=== PATIENT | female | born 1960 | race Caucasian/White ===

== ENCOUNTER 2018-10-27 14:52 | Observation (INO) | payer SELFPAY ==
[2018-10-27] VITALS (9 sets, daily range): BP systolic 117–166; BP diastolic 59–94; PULSE 77–91; RESP 12–22; TEMP 36.6–36.8; O2SAT 97–100; BMI 44.2
--- NOTE | 2018-10-27 15:03 | RAD_ITS ---
STUDY: X-RAY - LEFT ANKLE REASON FOR EXAM: Female, 58 years old. Fall TECHNIQUE: 2 view(s) of the ankle. COMPARISON: None. FINDINGS: Fracture involving the distal fibula shaft. Fracture of the medial malleolus and possibly the posterior malleolus. Dislocated talotibial articulation. Normal visualized talus and calcaneus. Calcaneal spurring. The visualized subtalar, talonavicular, calcaneocuboid and tarsal articulations are normal. The soft tissue structures are unremarkable. RAD/Ankle 2 Views IMPRESSION: Fracture /dislocation of the ankle. Electronically Signed: Aly Castillo DO at 15:42 EDT Tel [phone], Service support ,
[2018-10-27] MEDS: HYDROmorphone 1 MG/ML Syringe IV (15:08)
[2018-10-27] MEDS: Propofol 200 MG/20 ML Vial IV BOLUS (16:13)
--- NOTE | 2018-10-27 16:13 | RAD_ITS ---
STUDY: X-RAY - PELVIS AND RIGHT HIP REASON FOR EXAM: Female, 58 years old. pulled off the deck, right hip pain TECHNIQUE: 3 views of the pelvis and hip. COMPARISON: None. FINDINGS: There is a non-specific bowel gas pattern. Normal visualized soft tissue structures. Operative changes of the lumbar spine partially visualized. Normal bilateral iliac wings, sacroiliac joints and visualized sacrum. Normal bilateral superior and inferior pubic rami. Normal pubic symphysis. Normal bilateral ischial tuberosities. Normal visualized femoral head. Normal acetabulum. Normal hip joint. RAD/HIP, UNI W/ Pelvis 2-3 Views IMPRESSION: No fracture or malalignment. Electronically Signed: Omer Barrios MD at 16:56 EDT , Service support ,
--- NOTE | 2018-10-27 16:13 | RAD_ITS ---
STUDY: X-RAY - CERVICAL SPINE REASON FOR EXAM: Female, 58 years old.pulled off the deck, right hip pain TECHNIQUE: 3 view(s) of the cervical spine were obtained. COMPARISON: None FINDINGS: Normal anterior atlantoaxial articulation. Normal odontoid process. There is straightening of the normal cervical lordosis. There is multi-level endplate spondylosis. There is disc space narrowing at C4-C5 and C5-C6. Uncovertebral hypertrophy noted in the lower cervical levels. No subluxation or fracture demonstrated. The soft tissue structures are unremarkable. RAD/Cerv Spine 2 or 3 Views IMPRESSION: No fracture or malalignment demonstrated. Degenerative changes. Electronically Signed: Omer Barrios MD at 16:57 EDT , Service support ,
--- NOTE | 2018-10-27 16:32 | RAD_ITS ---
STUDY: X-RAY - LEFT ANKLE REASON FOR EXAM: Female, 58 years old. Status post reduction of ankle fracture TECHNIQUE: 3 view(s) of the ankle. COMPARISON: Earlier today FINDINGS: Splint material noted. Distal tibial and fibular fractures redemonstrated with nearly radiographically aligned tibiotalar articulation on the current exam. No additional fractures seen. The visualized subtalar, talonavicular, calcaneocuboid and tarsal articulations are normal. There is soft tissue swelling. RAD/Ankle min 3 Views IMPRESSION: Significantly improved alignment of fracture/dislocation. Electronically Signed: Omer Barrios MD at 17:01 EDT , Service support ,
--- NOTE | 2018-10-27 17:24 | RAD_ITS ---
STUDY: X-RAY CHEST REASON FOR EXAM: Female, 58 years old. Preoperative. TECHNIQUE: Portable chest. COMPARISON: None. FINDINGS: The lungs are clear and expanded. There is no demonstrated pleural abnormality. Normal size heart. Normal mediastinum and sergey. Normal visualized pulmonary arteries. Normal visualized aortic arch and descending thoracic aorta. Normal visualized thoracic spine. Normal visualized ribs, clavicles, and shoulders. There is no demonstrated abnormality of the visualized soft tissue structures of the upper abdomen. RAD/Chest 1 View (Portable) IMPRESSION: Normal x-ray examination of the chest. Electronically Signed: Angi Chavez MD at 19:20 EDT Tel , Service support ,
--- NOTE | 2018-10-27 17:25 | EKG12_ITS ---
Test Reason : PREOP Blood Pressure : / mmHG Vent. Rate : 077 BPM Atrial Rate : 077 BPM P-R Int : 146 ms QRS Dur : 094 ms QT Int : 376 ms P-R-T Axes : 035 007 040 degrees QTc Int : 425 ms Normal sinus rhythm Moderate voltage criteria for LVH, may be normal variant Borderline ECG Confirmed by SATURNINO NUNEZ, JAS ([id number]), photo editor ANGELICA HERZOG ([id number]) on 10/30/2018 8:00:58 AM Referred By: TALITA Confirmed By:JAS MATAMOROS MD
[2018-10-27] MEDS: Morphine 4 MG/ML Syringe IV (17:30)
[2018-10-27 17:39] LABS: Absolute Lymphocyte Count 1.71 X10^3/ul (0.83-4.51); Absolute Neutrophil Count 3.4 X10^3/uL (2.0-7.7); Basophil# 0.02 X10^3/uL; Basophil% 0.3 % (0-1); Eosinophils% 3.4 % (0-5); Hematocrit 37.2 % (37-47); Hemoglobin 12.9 g/dl (12.0-15.0); Lymphocyte # 1.71 X10^3/ul (4.0); Lymphocyte % 28.6 % (19-41); Mean Corp Hgb Conc 34.7 g/gl (32-36); Mean Corpuscular Hgb 28.4 pg (27.0-32.0); Mean Corpuscular Volume 81.9 fL (81-99); Mean Platelet Vol. 10.2 fl (6.2-12.0); Monocyte# 0.64 X10^3/uL; Monocyte% 10.7 % (0-10); Neutrophil # 3.39 X10^3/uL (2.7-7.7); Neutrophil % 56.8 % (47-70); POSITIVE COUNT NO; POSITIVE DIFFERENTIAL NO; POSITIVE MORPHOLOGY NO; Platelet Count 258 K/mm3 (150-450); RBC Distribution Width CV 13.8 % (11.6-14.6); RBC Distribution Width SD 41.9 fl (35.1-43.9); Red Blood Count 4.54 M/mm3 (4.2-5.4)
[2018-10-27 17:48] LABS: Anion Gap 8 (5-15); BUN 18 mg/dL (7-18); Calcium,Total 9.3 mg/dL (8.5-10.1); Chloride 107 mmol/L (98-107); Creatinine, Serum 1.29 mg/dL (0.55-1.02); EST Glomerular Filtration Rate 45 mL/min (>60); Est Glom Filt Rate - Afr Amer 54 mL/min (>60); Estimated Creatinine Clearance 39.32 ml/min; Glucose 119 mg/dL (74-106); Potassium 3.6 mmol/L (3.5-5.1); Sodium Level 138 mmol/L (136-145)
--- NOTE | 2018-10-27 17:49 | ED.DCSUM_ITS ---
- ER Visit Summary Date of Service: 10/27/18 Chief Complaint: Fall, left ankle pain History of Present Illness: The patient is a [address] Schneider. She reports that just prior to coming emerge department she was told by her dog who was on a leash and has an obvious deformity to her left ankle. She denies any blow to the head or loss of consciousness. She is not on blood thinners. She reports she has neck pain is 5-10 severity and right hip pain is 5 out of 10 severity. She denies any paresthesias in her foot. Physical Examination: Vitals: Stable. Afebrile. Neck: Mild diffuse tenderness to palpation. No point tenderness. Full ROM without difficulty. Back: No vertebral tenderness. General: A&O x 3. NAD. Cardiovascular exam: Regular rate and rhythm, no murmur, rub or gallop. Respiratory exam: Chest nontender. No crepitus. Clear to auscultation bilaterally. No wheezes or stridor. Abdominal exam: Soft, nontender, nondistended, normal bowel sounds. No pain in RUQ or LUQ specifically. No peritoneal signs. Extremity: Mild tenderness palpation over the right greater trochanter. No pain with internal/external rotation of her hip. Obvious deformity of the left ankle with a fracture dislocation. The skin is tenting, but is not disrupted. She is a 2+ dorsalis pedis pulse and normal sensation light touch distally. Test Results: Clinical Impression(s) from Imaging Studies Ankle X-Ray 10/27/18 15:03 IMPRESSION: Fracture /dislocation of the ankle. Electronically Signed: Aly Castillo DO at 15:42 EDT Tel [phone], Service support , Cervical Spine X-Ray 10/27/18 16:13 IMPRESSION: No fracture or malalignment demonstrated. Degenerative changes. Electronically Signed: Omer Barrios MD at 16:57 EDT , Service support , Hip/Pelvis X-Ray 10/27/18 16:13 IMPRESSION: No fracture or malalignment. Electronically Signed: Omer Barrios MD at 16:56 EDT , Service support , Ankle X-Ray 10/27/18 16:32 IMPRESSION: Significantly improved alignment of fracture/dislocation. Electronically Signed: Omer Barrios MD at 17:01 EDT , Service support , Abnormal Lab Results 10/27/18 10/27/18 15:02 15:02 WBC 6.0 RBC 4.54 Hgb 12.9 Hct 37.2 MCV 81.9 MCH 28.4 MCHC 34.7 RDW 13.8 RDW Differential 41.9 Plt Count 258 MPV 10.2 Immature Gran % (Auto) 0.200 Neut % (Auto) 56.8 Lymph % (Auto) 28.6 [place] % (Auto) 10.7 H Eos % (Auto) 3.4 Baso % (Auto) 0.3 Absolute Neuts (auto) 3.4 Absolute Lymphs (auto) 1.71 Total Counted Not Reportable Sodium 138 Potassium 3.6 Chloride 107 Carbon Dioxide 23.0 Anion Gap 8 BUN 18 Creatinine 1.29 H Estim Creat Clear Calc 39.32 Est GFR (MDRD) Af Amer 54 L Est GFR (MDRD) Non-Af 45 L BUN/Creatinine Ratio 14.0 Glucose 119 H Calcium 9.3 Preop screening was undertaken. Patient has an EKG the sinus at [address] changes. Emergency Department Course and Treatment: Patient had an IV placed. She was given Dilaudid and Zofran IV. She had procedural sedation undertaken with propofol. Her ankle was reduced. She tolerated this well. Treatment Plan: The patient was discussed with Dr. Wharton. He is reviewed the x-rays. She will be admitted for surgical repair of this ankle. Disposition: Admitted in improved condition. Impression: 1. Left ankle trimalleolar fracture/dislocation. 2. Procedural sedation. 3. Reduction left ankle dislocation. 4. Short leg splint, fabricated. 5. Sugar tong splint, fabricated. This note was generated with [employer] software. It may contain incorrect words, spelling, and punctuation that were not noted in review of the chart prior to signing
--- NOTE | 2018-10-27 19:22 | CT_ITS ---
HISTORY: FX AND DISLOCATION OF LT ANKLE POST FALL, PT HAVING SURGERY IN AM TECHNIQUE: Noncontrast bone protocol CT of the left ankle was performed without contrast. 2D and 3D reformats were performed by the technologist. Number of images including paperwork: [id number]. A radiation dose optimization technique was used for this scan. COMPARISON: Left ankle postreduction radiographs 10/27/2018 FINDINGS: BONES: Trimalleolar fracture of the left ankle is noted. Lateral displacement of medial malleolus fragment and distal fibula by about 6 mm. Overriding of the fibular fracture site measuring about 7 mm. Posterior malleolus fragment is mildly displaced. JOINTS: Lateral subluxation of the ankle joint by about 7 mm. SOFT TISSUES: Unremarkable. FOREIGN BODY: No radiopaque foreign body. CT/Extremity Lower without Contra IMPRESSION: Trimalleolar left ankle fracture with lateral ankle subluxation. Individualized dose optimization techniques were used for this CT. at 0229 Reported and signed by: Tahmina Villa MD Electronically Signed: Tahmina Villa MD at 2:29 EDT Tel , Service support ,
--- NOTE | 2018-10-27 19:46 | CON.PCM_ITS ---
Problem List (1) Closed left ankle fracture Status: Acute Qualifiers: Encounter type: initial encounter Qualified Code(s): S82.892A - Other fracture of left lower leg, initial encounter for closed fracture (2) Hypertension Status: Chronic Qualifiers: Hypertension type: essential hypertension Qualified Code(s): I10 - Essential (primary) hypertension (3) Hypothyroidism Status: Chronic Qualifiers: Hypothyroidism type: unspecified Qualified Code(s): E03.9 - Hypothyroidism, unspecified (4) Morbid obesity Status: Chronic (5) Anxiety and depression Status: Chronic (6) HLD (hyperlipidemia) Status: Chronic Qualifiers: Hyperlipidemia type: unspecified Qualified Code(s): E78.5 - Hyperlipidemia, unspecified (7) Chronic back pain Status: Chronic Qualifiers: Back pain location: back pain in unspecified location Back pain laterality: unspecified Qualified Code(s): M54.9 - Dorsalgia, unspecified; G89.29 - Other chronic pain (8) GERD (gastroesophageal reflux disease) Status: Chronic Qualifiers: Esophagitis presence: esophagitis presence not specified Qualified Code(s): K21.9 - Gastro-esophageal reflux disease without esophagitis Reason for Consult Date of Consultation: 10/27/18 Reason for Consultation: Medical consultation History of Present Illness: The patient is a 58 y/o F w/ PMHx: Morbid Obesity, HTN, HLD, Hx Thyroid CA s/p resection w/ resulting Hypothyroidism, Anxiety and Depression, GERD who presents to the [facility] ED on 10/27/18 with history of recent trauma, being pulled off her porch by her canine with fall off steps, immediate L ankle pain with crunching sound with ongoing debilitating left ankle pain with ED evaluation notable for fracture and dislocation of the ankle, specifically trimalleolar fracture and dislocation with the ED procedural sedation undertaken with ankle reduction which was well-tolerated and follow-up consultation with Dr. de la fuente with admission for surgical repair. Dr. de la fuente contacted hospitalist service for medical consultation and notes that he plans operative intervention in a.m. Patient currently in short leg splint as well as sugar tong splint following recent ED reduction. Work-up in the ED additionally included T 98.3, heart rate 89, BP 118/94, respiratory rate 22, 99% on room air, unremarkable CBC, BMP with BUN/creatinine 18/1.29, glucose 119. In the ED patient ministered Dilaudid, morphine, propofol for sedation as well as normal saline. Past Medical History Past Medical History (Chronic Problems): Chronic Problems Hypertension (Chronic) Hypothyroidism (Chronic) Morbid obesity (Chronic) Anxiety and depression (Chronic) HLD (hyperlipidemia) (Chronic) Chronic back pain (Chronic) GERD (gastroesophageal reflux disease) (Chronic) Allergies No Known Allergies Allergy (Verified 10/27/18 14:53) Home Medications: Ambulatory Orders Medication Instructions Recorded Diclofenac Sodium 2 tab PO DAILY 10/27/18 Levothyroxine [Synthroid] 100 mcg PO DAILY 10/27/18 Losartan/Hydrochlorothiazide 1 each PO DAILY 10/27/18 [Losartan-Hctz 100-25 mg Tab] Pantoprazole Sodium [Protonix] 40 mg PO DAILY 10/27/18 Zoloft 50 mg PO DAILY 10/27/18 Zoloft 100 mg PO DAILY 10/27/18 Surgical History: - - Lumbar back surgery, right ankle surgery, right foot pain, right total knee replacement, thyroid resection. 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 Paternal History Items: - - Patient with a paternal family history of chronic kidney disease and hypertension. Review of Systems Constitutional: Reports: Malaise, Weakness, Fatigue. Denies: Chills, Fever, Weight Change HEENT: Denies: Head Aches, Sinus Congestion, Sinus Drainage Cardiovascular: Denies: Chest Pain, Palpitations Respiratory: Denies: Cough, Shortness of breath at rest, Sputum production Gastrointestinal: Denies: Abdominal Pain, Nausea, Vomiting Genitourinary: Denies: Dysuria Musculoskeletal: Reports: Foot Pain, Leg Pain. Denies: Joint Pain, Joint Tenderness Skin: Reports: Skin Changes. Denies: Rash, Wounds Neurological: Denies: Numbness, Tingling, Focal weakness Psychiatric: Reports: Anxiety, Depression. Denies: Homicidal Ideations, Suicidal Ideations Hematologic/ Lymphatic: Denies: Easy Bruising, Easy Bleeding Patient Problems: Active and Suspected Problems Closed left ankle fracture (Acute) Subjective: Seated upright in the [facility] bed, notes ongoing discomfort currently requesting pain medication. Objective: Physical Examination: General: awake, alert, oriented x 3 and cooperative, seated upright in the [facility] bed in no apparent distress. Skin: normal color, turgor, no icterus, cyanosis, left foot and lower leg and splinting, elevated, able to move toes. HEENT: AT/NC, EOMI, PERRLA, mildly dry MM, no carotid bruits or JVD noted. Lungs: CTA bilaterally, moderate effort, mild decrease BL bases, no rales, ronchi or wheezing. Heart: Regular rate and rhythm; no gallop, rub audible. Abdomen: soft, morbidly obese, NTTP, ND, normal BS, no HSM. Extremities: no cyanosis, clubbing, status post mechanical fall with trauma with left ankle fracture, reduced in the ED with splinting in place. Neurological: patient awake, alert, oriented x 3; cognitive function intact; pupils equally reactive to light and accomodation; cranial nerves II-XII grossly normal, moving all 4 extremities however extremely debilitated left lower extremity secondary to recent fall with fracture and splinting in place, strength accordingly moderately to severely globally decreased. Psychiatric: affect appears normal, no acute evidence of depressive or anxiety feelings. - Physical Exam Vital Signs Temp Pulse Resp BP Pulse Ox 98 F 80 20 H 140/68 H 100 10/27/18 18:30 10/27/18 18:30 10/27/18 18:30 10/27/18 18:30 10/27/18 18:30 Oxygen Flow Rate (L/min) [4] 6 Oxygen Flow Rate (L/min) [3] 6 Oxygen Flow Rate (L/min) [2] 6 Oxygen Flow Rate (L/min) [1 ( 2 Initial Baseline)] Oxygen Flow Rate (L/min) 2 Oxygen Delivery Method [4] Nasal Cannula Oxygen Delivery Method [3] Nasal Cannula Oxygen Delivery Method [2] Nasal Cannula Oxygen Delivery Method [1 ( Nasal Cannula Initial Baseline)] Oxygen Delivery Method Room Air Weight: 249 lb 12.54 oz Body Mass Index (BMI) 44.2 Laboratory Tests Past 24 Hrs 10/27/18 10/27/18 15:02 15:02 WBC 6.0 RBC 4.54 Hgb 12.9 Hct 37.2 MCV 81.9 MCH 28.4 MCHC 34.7 RDW 13.8 RDW Differential 41.9 Plt Count 258 MPV 10.2 Immature Gran % (Auto) 0.200 Neut % (Auto) 56.8 Lymph % (Auto) 28.6 [place] % (Auto) 10.7 H Eos % (Auto) 3.4 Baso % (Auto) 0.3 Absolute Neuts (auto) 3.4 Absolute Lymphs (auto) 1.71 Total Counted Not Reportable Sodium 138 Potassium 3.6 Chloride 107 Carbon Dioxide 23.0 Anion Gap 8 BUN 18 Creatinine 1.29 H Estim Creat Clear Calc 39.32 Est GFR (MDRD) Af Amer 54 L Est GFR (MDRD) Non-Af 45 L BUN/Creatinine Ratio 14.0 Glucose 119 H Calcium 9.3 Assessment/Plan All Active Problems Closed left ankle fracture (Acute) The patient is a 58 y/o F w/ PMHx: Morbid Obesity, HTN, HLD, Hx Thyroid CA s/p resection w/ resulting Hypothyroidism, Anxiety and Depression, GERD who presents to the [facility] ED on 10/27/18 with history of recent trauma, being pulled off her porch by her canine with fall off steps, immediate L ankle pain with crunching sound with ongoing debilitating left ankle pain. (1) Trauma, mechanical fall off steps with acute trimalleolar left fracture and dislocation: Admitted to the medical surgical floor per podiatry, per discussion with podiatry planned operative intervention in a.m., fall precautions, reduction in the ED, pain control, nausea control, perioperative antibiotics per podiatry discretion. PT, OT initiation per podiatry discretion. (2) Hypertension: Continue home regimen including losartan, hydrochlorothiazide but would consider hold if repeat a.m. labs with worsened renal function although suspect chronic kidney disease, PRN hydralazine. (3) Hyperlipidemia: Patient not on regimen, defer to outpatient. (4) ? Suspected Chronic Kidney Disease Stage III versus CHAO: Admission BUN/Cr 18/1.29, unclear prior baseline, suspect chronic, repeat BMP in AM. (5) Morbid Obesity: Weight loss and lifestyle changes encouraged, nutrition consulted. (6) Anxiety and depression: Continue home Zoloft regimen. (7) Hx Thyroid CA s/p resection w/ resulting Hypothyroidism: Continue home synthroid regimen. (8) GERD: PPI. (9) DVT prophylaxis: Defer to primary service, podiatry given planned a.m. operative intervention and recent left ankle fracture. Code Visit Office Visits / Consults: [id number] IP Consult L3
--- NOTE | 2018-10-27 19:51 | PCM.HP.STD ---
History of Present Illness Date of Admission: 10/27/18 Chief Complaint: Left ankle fracture The patient is a 58 year old female with history of hypertension, hyperlipidemia, GERD presented to [facility] ER today after injury to left ankle while walking her dog. Patient was found to have displaced trimalleolus ankle fracture, was closed reduced in ER. She has splint intact. She is resting in bed. Patient admitted for pain control with plan for ORIF tomorrow AM. Patient has pain to left ankle c/w injury, no other complaints of pain at this time. Patient has had previous surgery, right foot surgery, back surgery and right knee replacement with no problems with anesthesia. Patient lives at home with her and sister. Patient denies alcohol or tobacco use. Past Medical History Past Medical History (Chronic Problems): Chronic Problems Hypertension (Chronic) Hypothyroidism (Chronic) Morbid obesity (Chronic) Anxiety and depression (Chronic) HLD (hyperlipidemia) (Chronic) Chronic back pain (Chronic) GERD (gastroesophageal reflux disease) (Chronic) Allergies No Known Allergies Allergy (Verified 10/27/18 14:53) Home Medications: Ambulatory Orders Medication Instructions Recorded Levothyroxine [Synthroid] 100 mcg PO DAILY 10/27/18 Losartan/Hydrochlorothiazide 1 each PO DAILY 10/27/18 [Losartan-Hctz 100-25 mg Tab] Pantoprazole Sodium [Protonix] 40 mg PO DAILY 10/27/18 RX: Diclofenac Sodium 2 tab PO DAILY 10/27/18 Zoloft 50 mg PO DAILY 10/27/18 Zoloft 100 mg PO DAILY 10/27/18 Surgical History: - - Right foot surgery, right knee replacement, back surgery Psychiatric History: Anxiety, Depression 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 Paternal History Items: - - Patient with a paternal family history of chronic kidney disease and hypertension. Review of Systems Constitutional: Denies: Chills, Fever Cardiovascular: Denies: Chest Pain, Chest Pressure, Chest Tightness Respiratory: Denies: Shortness of Breath, Shortness of breath at rest, Wheezing Gastrointestinal: Denies: Nausea, Vomiting Musculoskeletal: Reports: Back Pain, - - left ankle pain due to fracture Skin: Denies: Rash, Skin Changes, Wounds VTE Information - Inpt Only VTE Present on Admission: No VTE Mechan Device Prophylaxis: SCD's VTE Pharm Prophylaxis ordered?: No Reason prophylaxis not ordered:: Treatment Not Indicated - will start pharm prophylaxis after surgery Patient Problems: Active and Suspected Problems Closed left ankle fracture (Acute) - Physical Exam General: Alert, Oriented x3, Cooperative, No apparent distress Extremities: Capillary Refill Less than 3 Seconds, No Calf Tenderness, Peripheral Pulses Normal, - - Splint left foot clean, dry and intact, CFT < 2 seconds to all toes with normal temperature, no evidence of ischemia to the left foot. Pain to left ankle c/w her injury, no other pain to the left foot or leg. Sensation intact to level of toes bilateral, motor function intact to toes left foot. Right foot with palpable pedal pulses, no open lesions, no breakdown, no evidence of infection. CFT < seconds to all toes right foot with vascular status intact. Sensation and motor function intact to right foot, no POP or pain on ROM to right foot/ankle. Musculoskeletal: No Muscle Wasting Psych/Mental Status: Normal Affect, Appropriate, Alert and oriented to time, place, person, mood and affect Vital Signs Temp Pulse Resp BP Pulse Ox 98 F 80 20 H 140/68 H 100 10/27/18 18:30 10/27/18 18:30 10/27/18 18:30 10/27/18 18:30 10/27/18 18:30 Oxygen Flow Rate (L/min) [4] 6 Oxygen Flow Rate (L/min) [3] 6 Oxygen Flow Rate (L/min) [2] 6 Oxygen Flow Rate (L/min) [1 ( 2 Initial Baseline)] Oxygen Flow Rate (L/min) 2 Oxygen Delivery Method [4] Nasal Cannula Oxygen Delivery Method [3] Nasal Cannula Oxygen Delivery Method [2] Nasal Cannula Oxygen Delivery Method [1 ( Nasal Cannula Initial Baseline)] Oxygen Delivery Method Room Air Weight: 113.3 kg Body Mass Index (BMI) 44.2 Laboratory Tests Past 24 Hrs 10/27/18 10/27/18 15:02 15:02 WBC 6.0 RBC 4.54 Hgb 12.9 Hct 37.2 MCV 81.9 MCH 28.4 MCHC 34.7 RDW 13.8 RDW Differential 41.9 Plt Count 258 MPV 10.2 Immature Gran % (Auto) 0.200 Neut % (Auto) 56.8 Lymph % (Auto) 28.6 [place] % (Auto) 10.7 H Eos % (Auto) 3.4 Baso % (Auto) 0.3 Absolute Neuts (auto) 3.4 Absolute Lymphs (auto) 1.71 Total Counted Not Reportable Sodium 138 Potassium 3.6 Chloride 107 Carbon Dioxide 23.0 Anion Gap 8 BUN 18 Creatinine 1.29 H Estim Creat Clear Calc 39.32 Est GFR (MDRD) Af Amer 54 L Est GFR (MDRD) Non-Af 45 L BUN/Creatinine Ratio 14.0 Glucose 119 H Calcium 9.3 Assessment/Plan All Active Problems Closed left ankle fracture (Acute) Left ankle trimalleolus ankle fracture Reviewed left ankle xrays, patient admitted for pain control and plan for surgical intervention tomorrow AM for ORIF. This was discussed with patient in great detail, reviewed procedure, rationale of procedure, as well as possible benefits vs risks, goals, expectations and typical/estimated healing time. Patient expressed understanding and agreement and would like to proceed forward with surgical intervention tomorrow AM. Pain control: IV Morphine 2mg IV q 2 hours prn pain, oxyir 5-10mg PO q 4 hours prn pain. No weightbearing left foot. Keep splint dressing clean, dry and intact, and keep left foot elevated. CT scan of left ankle has been ordered. DVT Prophylaxis: SCD right lower extremity, surgery in AM, will plan to start post op prophylaxis after surgery Code status discussed with patient, and patient would like to be FULL Code. Co-morbidities: Hypertension, Hyperlipidemia, GERD, possible CKD, and other medical problems: Medicine team has been consulted, appreciate assistance.
[2018-10-27] MEDS: 0.9% Normal Saline 1,000 ML 100 ML IV (20:12)
[2018-10-27] MEDS: oxyCODONE 5 MG Tablet PO ×2 (20:19→21:26)
[2018-10-27] MEDS: 0.9% NaCl Peripheral Flush Adult/Peds IV (21:27)
[2018-10-28] VITALS (11 sets, daily range): BP systolic 101–169; BP diastolic 62–91; PULSE 82–101; RESP 16–20; TEMP 36.4–37; O2SAT 93–98; BMI 44.2
[2018-10-28] MEDS: oxyCODONE 5 MG Tablet PO (01:29)
[2018-10-28] MEDS: 0.9% Normal Saline 1,000 ML 100 ML IV ×3 (05:15→17:12)
[2018-10-28] MEDS: 0.9% NaCl Peripheral Flush Adult/Peds IV (05:29)
[2018-10-28] MEDS: Morphine 2 MG/ML Syringe IV (05:29)
[2018-10-28 06:51] LABS: Anion Gap 9 (5-15); BUN 15 mg/dL (7-18); Calcium,Total 8.7 mg/dL (8.5-10.1); Chloride 108 mmol/L (98-107); EST Glomerular Filtration Rate 60 mL/min (>60); Est Glom Filt Rate - Afr Amer 73 mL/min (>60); Estimated Creatinine Clearance 50.73 ml/min; Glucose 107 mg/dL (74-106); Sodium Level 143 mmol/L (136-145)
[2018-10-28 07:07] LABS: Absolute Lymphocyte Count 1.32 X10^3/ul (0.83-4.51); Absolute Neutrophil Count 3.6 X10^3/uL (2.0-7.7); Basophil# 0.01 X10^3/uL; Basophil% 0.2 % (0-1); Eosinophil# 0.13 X10^3/uL; Eosinophils% 2.4 % (0-5); Hematocrit 33.7 % (37-47); Hemoglobin 11.3 g/dl (12.0-15.0); Lymphocyte # 1.32 X10^3/ul (4.0); Mean Corp Hgb Conc 33.5 g/gl (32-36); Mean Corpuscular Hgb 28.3 pg (27.0-32.0); Mean Corpuscular Volume 84.3 fL (81-99); Mean Platelet Vol. 9.2 fl (6.2-12.0); Monocyte# 0.47 X10^3/uL; Monocyte% 8.5 % (0-10); Neutrophil # 3.56 X10^3/uL (2.7-7.7); Neutrophil % 64.7 % (47-70); Platelet Count 203 K/mm3 (150-450); RBC Distribution Width SD 43.2 fl (35.1-43.9); White Blood Count 5.5 K/mm3 (4.4-11.0)
[2018-10-28 07:15] LABS: POSITIVE COUNT NO; POSITIVE DIFFERENTIAL NO; POSITIVE MORPHOLOGY NO
--- NOTE | 2018-10-28 07:29 | PCM.PN.HOSP ---
Patient Problems: Active and Suspected Problems Closed left ankle fracture (Acute) Subjective: Patient is a 58-year-old lady admitted with traumatic acute left trimalleolar fracture and dislocation following mechanical fall Objective: GENERAL: cooperative HEENT: Atraumatic; EYES; Anicteric, Normal Conjunctiva NECK; supple, normal thyroid, RESPIRATORY: Diminished to auscultation bilaterally, CARDIOVASCULAR: Regular S1 S2, GI: soft, non-tender, normoactive bowel sounds, : No Renal angle tenderness; EXTREMITIES: Right ankle immobilized NEURO: Awake; no lateralizing signs. SKIN: No Rash PSYCH; Normal affect Vitals/I&O's: Vital Signs Temp Pulse Resp BP Pulse Ox 98.4 F 82 18 126/69 H 96 10/28/18 05:17 10/28/18 05:17 10/28/18 05:17 10/28/18 05:17 10/28/18 05:17 Oxygen Flow Rate (L/min) [4] 6 Oxygen Flow Rate (L/min) [3] 6 Oxygen Flow Rate (L/min) [2] 6 Oxygen Flow Rate (L/min) [1 ( 2 Initial Baseline)] Oxygen Flow Rate (L/min) 2 Oxygen Delivery Method [4] Nasal Cannula Oxygen Delivery Method [3] Nasal Cannula Oxygen Delivery Method [2] Nasal Cannula Oxygen Delivery Method [1 ( Nasal Cannula Initial Baseline)] Oxygen Delivery Method Room Air Weight: 113.3 kg Body Mass Index (BMI) 44.2 Intake and Output for Last 24 Hours 10/26/18 10/27/18 10/28/18 23:59 23:59 23:59 Intake Total 894 / 894 505 / 505 Output Total 350 / 350 400 / 400 Balance 544 / 544 105 / 105 Laboratory Results 10/27/18 15:02: WBC 6.0, RBC 4.54, Hgb 12.9, Hct 37.2, MCV 81.9, MCH 28.4, MCHC 34.7, RDW 13.8, RDW Differential 41.9, Plt Count 258, MPV 10.2, Immature Gran % (Auto) 0.200, Neut % (Auto) 56.8, Lymph % (Auto) 28.6, [place] % (Auto) 10.7 H, Eos % (Auto) 3.4, Baso % (Auto) 0.3, Absolute Neuts (auto) 3.4, Absolute Lymphs (auto) 1.71, Total Counted Not Reportable 10/27/18 15:02: Sodium 138, Potassium 3.6, Chloride 107, Carbon Dioxide 23.0, Anion Gap 8, BUN 18, Creatinine 1.29 H, Estim Creat Clear Calc 39.32, Est GFR (MDRD) Af Amer 54 L, Est GFR (MDRD) Non-Af 45 L, BUN/Creatinine Ratio 14.0, Glucose 119 H, Calcium 9.3 10/27/18 20:40: Vitamin D 25-Hydroxy Pending 10/28/18 05:43: WBC 5.5, RBC 4.00 L, Hgb 11.3 L, Hct 33.7 L, MCV 84.3, MCH 28.3, MCHC 33.5, RDW 14.0, RDW Differential 43.2, Plt Count 203, MPV 9.2, Immature Gran % (Auto) 0.200, Neut % (Auto) 64.7, Lymph % (Auto) 24.0, [place] % (Auto) 8.5, Eos % (Auto) 2.4, Baso % (Auto) 0.2, Absolute Neuts (auto) 3.6, Absolute Lymphs (auto) 1.32, Total Counted Not Reportable 10/28/18 05:43: Sodium 143, Potassium 3.0 L, Chloride 108 H, Carbon Dioxide 26.0, Anion Gap 9, BUN 15, Creatinine 1.00, Estim Creat Clear Calc 50.73, Est GFR (MDRD) Af Amer 73, Est GFR (MDRD) Non-Af 60, BUN/Creatinine Ratio 15.0, Glucose 107 H, Calcium 8.7 Current Medications Acetaminophen (Tylenol) 650 mg PO Q6H PRN PRN PRN Reason: Non-cardiac pain (mod-severe) Al Hydroxide/Mg Hydroxide (Mylanta Ii) 15 - 30 ml PO Q4H PRN PRN PRN Reason: INDIGESTION Albuterol Sulfate (Ventolin Aerosols) 2.5 mg INHALATION Q2H PRN PRN PRN Reason: dyspnea, wheezing Docusate Sodium (Colace) 100 mg PO BID PRN PRN PRN Reason: Constipation Hydralazine HCl (Apresoline Iv) 10 mg IV Q4H PRN PRN PRN Reason: SBP > 160 Cefazolin Sodium 2 gm/ Sodium (Chloride) 110 mls @ 150 mls/hr IV X1 ONE Stop: 10/28/18 08:13 Sodium Chloride () 1,000 mls @ 100 mls/hr IV .Q10H MARCIO Last Admin: 10/28/18 05:15 Dose: 100 mls/hr Morphine Sulfate () 2 mg IV Q2H PRN PRN PRN Reason: SEVERE PAIN (6-10/10) Last Admin: 10/28/18 05:29 Dose: 2 mg Ondansetron HCl (Zofran) 4 mg IV Q8H PRN PRN PRN Reason: NAUSEA/VOMITING Oxycodone HCl (Oxyir) 5 - 10 mg PO Q4H PRN PRN PRN Reason: SEVERE PAIN (6-1010) Last Admin: 10/28/18 01:29 Dose: 10 mg Sodium Chloride () 5 - 15 ml IV UD PRN PRN Reason: SALINE FLUSH Last Admin: 10/28/18 05:29 Dose: 10 ml Medical Necessity - Tobacco Use Smoking Status: Never smoker Tobacco Use: Non-smoker Assessment/Plan All Active Problems Closed left ankle fracture (Acute) Patient is a 58-year-old lady admitted with traumatic acute left trimalleolar fracture and dislocation following mechanical fall 1. Acute Left Fracture /dislocation of the ankle (trimalleolar fracture and dislocation) following mechanical fall patient admitted to the podiatry service with plans for patient undergo ORIF on 10/28/2018 2. Essential hypertension; did continue with home meds with adjustment as needed 3. History of thyroid CA status post resection 4. Hypothyroidism following patient thyroid resection patient is on levothyroxine did continue 5. GERD patient is on PPI 6. Depression with anxiety patient is on SSRI 7. Morbid obesity with BMI of 44.2 weight loss advised 8. Renal insufficiency resolved with IV fluids 9. DVT prophylaxis will recommend low molecular weight heparin if no contraindication 10. Hypokalemia repleted per protocol with plans for repeat BMP on 10/29/2018 Active Medications Acetaminophen (Tylenol) 650 mg PO Q6H PRN PRN PRN Reason: Non-cardiac pain (mod-severe) Al Hydroxide/Mg Hydroxide (Mylanta Ii) 15 - 30 ml PO Q4H PRN PRN PRN Reason: INDIGESTION Albuterol Sulfate (Ventolin Aerosols) 2.5 mg INHALATION Q2H PRN PRN PRN Reason: dyspnea, wheezing Docusate Sodium (Colace) 100 mg PO BID PRN PRN PRN Reason: Constipation Hydralazine HCl (Apresoline Iv) 10 mg IV Q4H PRN PRN PRN Reason: SBP > 160 Cefazolin Sodium 2 gm/ Sodium (Chloride) 110 mls @ 150 mls/hr IV X1 ONE Stop: 10/28/18 08:13 Sodium Chloride () 1,000 mls @ 100 mls/hr IV .Q10H MARCIO Last Admin: 10/28/18 05:15 Dose: 100 mls/hr Morphine Sulfate () 2 mg IV Q2H PRN PRN PRN Reason: SEVERE PAIN (6-10) Last Admin: 10/28/18 05:29 Dose: 2 mg Ondansetron HCl (Zofran) 4 mg IV Q8H PRN PRN PRN Reason: NAUSEA/VOMITING Oxycodone HCl (Oxyir) 5 - 10 mg PO Q4H PRN PRN PRN Reason: SEVERE PAIN (6-1010) Last Admin: 10/28/18 01:29 Dose: 10 mg Sodium Chloride () 5 - 15 ml IV UD PRN PRN Reason: SALINE FLUSH Last Admin: 10/28/18 05:29 Dose: 10 ml Clinical Impression(s) from Imaging Studies Ankle X-Ray 10/27/18 15:03 IMPRESSION: Fracture /dislocation of the ankle. Electronically Signed: Aly Castillo DO at 15:42 EDT Tel [phone], Service support , Cervical Spine X-Ray 10/27/18 16:13 IMPRESSION: No fracture or malalignment demonstrated. Degenerative changes. Electronically Signed: Omer Barrios MD at 16:57 EDT , Service support , Hip/Pelvis X-Ray 10/27/18 16:13 IMPRESSION: No fracture or malalignment. Electronically Signed: Omer Barrios MD at 16:56 EDT , Service support , Ankle X-Ray 10/27/18 16:32 IMPRESSION: Significantly improved alignment of fracture/dislocation. Electronically Signed: Omer Barrios MD at 17:01 EDT , Service support , Chest X-Ray 10/27/18 17:24 IMPRESSION: Normal x-ray examination of the chest. Electronically Signed: Angi Chavez MD at 19:20 EDT Tel , Service support , Code Visit Inpatient E&M: 70263 Subs Hosp L3
--- NOTE | 2018-10-28 07:32 | PN_ITS ---
Patient Problems: Active and Suspected Problems Closed left ankle fracture (Acute) Subjective: Patient is a 58-year-old lady admitted with traumatic acute left trimalleolar fracture and dislocation following mechanical fall Objective: GENERAL: cooperative HEENT: Atraumatic; EYES; Anicteric, Normal Conjunctiva NECK; supple, normal thyroid, RESPIRATORY: Diminished to auscultation bilaterally, CARDIOVASCULAR: Regular S1 S2, GI: soft, non-tender, normoactive bowel sounds, : No Renal angle tenderness; EXTREMITIES: Right ankle immobilized NEURO: Awake; no lateralizing signs. SKIN: No Rash PSYCH; Normal affect Vitals/I&O's: Vital Signs Temp Pulse Resp BP Pulse Ox 98.4 F 82 18 126/69 H 96 10/28/18 05:17 10/28/18 05:17 10/28/18 05:17 10/28/18 05:17 10/28/18 05:17 Oxygen Flow Rate (L/min) [4] 6 Oxygen Flow Rate (L/min) [3] 6 Oxygen Flow Rate (L/min) [2] 6 Oxygen Flow Rate (L/min) [1 ( 2 Initial Baseline)] Oxygen Flow Rate (L/min) 2 Oxygen Delivery Method [4] Nasal Cannula Oxygen Delivery Method [3] Nasal Cannula Oxygen Delivery Method [2] Nasal Cannula Oxygen Delivery Method [1 ( Nasal Cannula Initial Baseline)] Oxygen Delivery Method Room Air Weight: 113.3 kg Body Mass Index (BMI) 44.2 Intake and Output for Last 24 Hours 10/26/18 10/27/18 10/28/18 23:59 23:59 23:59 Intake Total 894 / 894 505 / 505 Output Total 350 / 350 400 / 400 Balance 544 / 544 105 / 105 Laboratory Results 10/27/18 15:02: WBC 6.0, RBC 4.54, Hgb 12.9, Hct 37.2, MCV 81.9, MCH 28.4, MCHC 34.7, RDW 13.8, RDW Differential 41.9, Plt Count 258, MPV 10.2, Immature Gran % (Auto) 0.200, Neut % (Auto) 56.8, Lymph % (Auto) 28.6, [place] % (Auto) 10.7 H, Eos % (Auto) 3.4, Baso % (Auto) 0.3, Absolute Neuts (auto) 3.4, Absolute Lymphs (auto) 1.71, Total Counted Not Reportable 10/27/18 15:02: Sodium 138, Potassium 3.6, Chloride 107, Carbon Dioxide 23.0, Anion Gap 8, BUN 18, Creatinine 1.29 H, Estim Creat Clear Calc 39.32, Est GFR (MDRD) Af Amer 54 L, Est GFR (MDRD) Non-Af 45 L, BUN/Creatinine Ratio 14.0, Glucose 119 H, Calcium 9.3 10/27/18 20:40: Vitamin D 25-Hydroxy Pending 10/28/18 05:43: WBC 5.5, RBC 4.00 L, Hgb 11.3 L, Hct 33.7 L, MCV 84.3, MCH 28.3, MCHC 33.5, RDW 14.0, RDW Differential 43.2, Plt Count 203, MPV 9.2, Immature Gran % (Auto) 0.200, Neut % (Auto) 64.7, Lymph % (Auto) 24.0, [place] % (Auto) 8.5, Eos % (Auto) 2.4, Baso % (Auto) 0.2, Absolute Neuts (auto) 3.6, Absolute Lymphs (auto) 1.32, Total Counted Not Reportable 10/28/18 05:43: Sodium 143, Potassium 3.0 L, Chloride 108 H, Carbon Dioxide 26.0, Anion Gap 9, BUN 15, Creatinine 1.00, Estim Creat Clear Calc 50.73, Est GFR (MDRD) Af Amer 73, Est GFR (MDRD) Non-Af 60, BUN/Creatinine Ratio 15.0, Glucose 107 H, Calcium 8.7 Current Medications Acetaminophen (Tylenol) 650 mg PO Q6H PRN PRN PRN Reason: Non-cardiac pain (mod-severe) Al Hydroxide/Mg Hydroxide (Mylanta Ii) 15 - 30 ml PO Q4H PRN PRN PRN Reason: INDIGESTION Albuterol Sulfate (Ventolin Aerosols) 2.5 mg INHALATION Q2H PRN PRN PRN Reason: dyspnea, wheezing Docusate Sodium (Colace) 100 mg PO BID PRN PRN PRN Reason: Constipation Hydralazine HCl (Apresoline Iv) 10 mg IV Q4H PRN PRN PRN Reason: SBP > 160 Cefazolin Sodium 2 gm/ Sodium (Chloride) 110 mls @ 150 mls/hr IV X1 ONE Stop: 10/28/18 08:13 Sodium Chloride () 1,000 mls @ 100 mls/hr IV .Q10H MARCIO Last Admin: 10/28/18 05:15 Dose: 100 mls/hr Morphine Sulfate () 2 mg IV Q2H PRN PRN PRN Reason: SEVERE PAIN (6-10/10) Last Admin: 10/28/18 05:29 Dose: 2 mg Ondansetron HCl (Zofran) 4 mg IV Q8H PRN PRN PRN Reason: NAUSEA/VOMITING Oxycodone HCl (Oxyir) 5 - 10 mg PO Q4H PRN PRN PRN Reason: SEVERE PAIN (6-1010) Last Admin: 10/28/18 01:29 Dose: 10 mg Sodium Chloride () 5 - 15 ml IV UD PRN PRN Reason: SALINE FLUSH Last Admin: 10/28/18 05:29 Dose: 10 ml Medical Necessity - Tobacco Use Smoking Status: Never smoker Tobacco Use: Non-smoker Assessment/Plan All Active Problems Closed left ankle fracture (Acute) Patient is a 58-year-old lady admitted with traumatic acute left trimalleolar fracture and dislocation following mechanical fall 1. Acute Left Fracture /dislocation of the ankle (trimalleolar fracture and dislocation) following mechanical fall patient admitted to the podiatry service with plans for patient undergo ORIF on 10/28/2018 2. Essential hypertension; did continue with home meds with adjustment as needed 3. History of thyroid CA status post resection 4. Hypothyroidism following patient thyroid resection patient is on levothyroxine did continue 5. GERD patient is on PPI 6. Depression with anxiety patient is on SSRI 7. Morbid obesity with BMI of 44.2 weight loss advised 8. Renal insufficiency resolved with IV fluids 9. DVT prophylaxis will recommend low molecular weight heparin if no contraindication 10. Hypokalemia repleted per protocol with plans for repeat BMP on 10/29/2018 Active Medications Acetaminophen (Tylenol) 650 mg PO Q6H PRN PRN PRN Reason: Non-cardiac pain (mod-severe) Al Hydroxide/Mg Hydroxide (Mylanta Ii) 15 - 30 ml PO Q4H PRN PRN PRN Reason: INDIGESTION Albuterol Sulfate (Ventolin Aerosols) 2.5 mg INHALATION Q2H PRN PRN PRN Reason: dyspnea, wheezing Docusate Sodium (Colace) 100 mg PO BID PRN PRN PRN Reason: Constipation Hydralazine HCl (Apresoline Iv) 10 mg IV Q4H PRN PRN PRN Reason: SBP > 160 Cefazolin Sodium 2 gm/ Sodium (Chloride) 110 mls @ 150 mls/hr IV X1 ONE Stop: 10/28/18 08:13 Sodium Chloride () 1,000 mls @ 100 mls/hr IV .Q10H MARCIO Last Admin: 10/28/18 05:15 Dose: 100 mls/hr Morphine Sulfate () 2 mg IV Q2H PRN PRN PRN Reason: SEVERE PAIN (6-10) Last Admin: 10/28/18 05:29 Dose: 2 mg Ondansetron HCl (Zofran) 4 mg IV Q8H PRN PRN PRN Reason: NAUSEA/VOMITING Oxycodone HCl (Oxyir) 5 - 10 mg PO Q4H PRN PRN PRN Reason: SEVERE PAIN (6-1010) Last Admin: 10/28/18 01:29 Dose: 10 mg Sodium Chloride () 5 - 15 ml IV UD PRN PRN Reason: SALINE FLUSH Last Admin: 10/28/18 05:29 Dose: 10 ml Clinical Impression(s) from Imaging Studies Ankle X-Ray 10/27/18 15:03 IMPRESSION: Fracture /dislocation of the ankle. Electronically Signed: Aly Castillo DO at 15:42 EDT Tel [phone], Service support , Cervical Spine X-Ray 10/27/18 16:13 IMPRESSION: No fracture or malalignment demonstrated. Degenerative changes. Electronically Signed: Omer Barrios MD at 16:57 EDT , Service support , Hip/Pelvis X-Ray 10/27/18 16:13 IMPRESSION: No fracture or malalignment. Electronically Signed: Omer Barrios MD at 16:56 EDT , Service support , Ankle X-Ray 10/27/18 16:32 IMPRESSION: Significantly improved alignment of fracture/dislocation. Electronically Signed: Omer Barrios MD at 17:01 EDT , Service support , Chest X-Ray 10/27/18 17:24 IMPRESSION: Normal x-ray examination of the chest. Electronically Signed: Angi Chavez MD at 19:20 EDT Tel , Service support , Code Visit Inpatient E&M: 46429 Subs Hosp L3
--- NOTE | 2018-10-28 08:00 | RAD_ITS ---
STUDY: X-RAY - LEFT ANKLE REASON FOR EXAM: Female, 58 years old. ORIF TECHNIQUE: 12 intraoperative view(s) of the ankle. COMPARISON: October 27, 2018 FINDINGS: Intraoperative images demonstrate ORIF for fibular fracture and medial malleolus fracture. Fracture fragments are well approximated and aligned. Bony details are limited. RAD/Ankle min 3 Views IMPRESSION: ORIF of the ankle as noted. Electronically Signed: Aly Castillo DO at 15:47 EDT Tel [phone], Service support ,
[2018-10-28] MEDS: Cefazolin 2 GM in 0.9% Normal Saline 100 ML IV (08:20)
[2018-10-28] MEDS: Potassium Chloride 10mEq/100mL 10 MEQ/100 ML IV.SOLN. 100 MEQ IV BOLUS ×4 (08:40→12:32)
--- NOTE | 2018-10-28 12:04 | RAD_ITS ---
STUDY: X-RAY - LEFT ANKLE REASON FOR EXAM: Female, 58 years old. Postop TECHNIQUE: 3 view(s) of the ankle. COMPARISON: October 27, 2018. FINDINGS: Status post ORIF for a fibular fracture and a medial malleolus fracture. Fracture fragment is well approximated and aligned. A splint has been applied. RAD/Ankle min 3 Views IMPRESSION: Status post ORIF of the ankle. Electronically Signed: Aly Castillo DO at 15:56 EDT Tel [phone], Service support ,
--- NOTE | 2018-10-28 12:18 | OP.PCM_ITS ---
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 Alessandro Siddiqi Type of Anesthesia:: General Specimen's removed: None Estimated Blood Loss (mL): 20mL Description of Procedure: Indications: This is a 58 year old female sustained a dislocated left tri malleolar ankle fracture on 10/27/18. Closed reduction was preformed by the Emergency Room physician. Pre operative xrays as well as CT scan were obtained and reviewed. There was trimalleolar ankle fracture with continued displacement present. Patient elected to proceed forward with open reduction internal fixation of the trimalleolar ankle fracture. The procedure was reviewed with her in detail. The rationale of the procedure was reviewed with her. The goals and the expectations were discussed and reviewed with her. The possible benefits vs risks and all potential complications were discussed and reviewed with the patient. Patient advised the risks include, but are not limited to pain, swelling, nerve damage, complex regional pain syndrome, infection, blood clots, loss of function, symptomatic hardware, hardware failure, nonhealing, delayed healing, dehiscence, nonunion, delayed union, malunion, bleeding, scarring, post op athritis, stiffness, deformity, loss of function, loss of limb, loss of life. The patient expressed understanding and was able to repeat back. The patient expressed understanding and agreement, and elected to proceed forward with the procedure. All of her questions were answered. The consent forms were reviewed with her and she freely signed them. No guarantees or warranties were given or implied. Operative Procedure: The patient was brought back to the operating room and was placed on the operating room table in the supine position. The patient was carefully secured to the operating room table with a safety belt around her waist. The patient received 2 grams of IV cephalozin for antibiotic prophylaxis. The anesthesia team gave the patient general anesthesia. A well padded pneumatic tourniquet was applied around her left thigh. The left lower extremity was scrubbed, prepped, and draped in the usual aseptic fashion. The left foot/ankle was elevated for 3 minutes and the thigh pneumatic tourniquet was inflated to 350mmHg. The ankle was noted to be very unstable due to the trimalleolar fracture. There was no open lesions, blisters or skin break down noted. Using a 15 blade, a skin incision was made overlying the lateral malleolus. Careful dissection was completed down to the lateral malleolus fracture. The periosteum was left intact. The oblique spiral fibular fracture was noted, it was displaced. The fibula was brought out to length and was rotated back to normal position, it was stabilized with a bone clamp. The fracture was fixated using rigid open reduction internal fixation technique with 1 Arthrex a titanium distal fibular plate, which was applied across the fracture site using a total of nine screws (combination of 2.7mm locking screws distally and 3.5mm locking screws and 3.5mm cortical screws proximally through the plate). The clamp was removed. There fracture was reduced, very stable, and in good position. This was confirmed visually as well as using intra operative fluoroscopy. Attention was directed to the medial malleolus, as this was fractures with some continued displacement. A skin incision was made overlying the medial malleolus using a 15 scalpel blade. Careful blunt dissection was completed down to the medial malleolus where the fracture was identified. There was soft tissue inter position between the fracture fragments. This was composed of periosteum. The periosteum was moved out from in between the fracture fragments and the medial malleolus was reduced back manually into normal position. The medial malleolus fracture site was fixated with two 4.0mm Arthrex cannulated screws. There fracture was reduced, but still with some instability, as there was some slight fragmentation of the medial malleolus when placing the screws for fixation. Therefore the fragment was further fixated using one 0.062 inch kwire across the fracture site. The kwire was trimmed and bent. At this time the medial malleolus was very stable, and in good position. This was confirmed visually as well as using intra operative fluoroscopy. Clinically there was excellent bone to bone contact at the fracture sites. There was noted to be very mild instability of the distal syndesmosis, when stressing it, therefore an Arthrex syndesmotic Tightrope was placed across the distal fibula and tibia to stabilize the tib fib syndesmosis. After this was completed, the distal ankle syndesmosis was stressed with a bone hook as well as with dorsiflexion external rotation stress test, and it was now noted be be stable with no gapping present or instability present. At this time there was noted to be excellent stability to the ankle joint, range of motion was smooth and gliding normally. There was no popping, clicking, or crepitus present. Intraoperative fluoroscopy was used to check the site and it was noted fibular length and tib fib overlap was normal, ankle mortise with medial and lateral gutters in normal position/alignment with good positioning of the plate, screws, and tight rope. There was good bone to bone alignment of the fracture sites. There was excellent stability to the ankle / fracture site. The ankle was stressed under fluoroscopy and negative anterior drawer, normal talar tilt, no gapping with external stress, no medial gutter gapping with external stress test, and no gapping or instability with Cotton test as noted above. The surgical site was flushed out with copious amounts of normal saline solution. The subcutaneous tissue was reapproximated using 3-0 Vicryl, and the skin was 3- 0 Nylon. A dressing was applied which consisted of Betadine soaked adaptic, 4x4 gauze, kerlix, webril, audi bandages, and well padded below knee posterior splint. Prior to closure the tight pneumatic tourniquet was deflated and it was noted all hemostasis was achieved. There was immediate return of vascular flow to the foot/ankle, CFT < 2 seconds, and normal temperature present. Total tourniquet time was 120 minutes. Also of note, all vital structures, including all vital neurovascular and tendon structures were properly identified, protected and retracted as necessary. The patient tolerated the above procedure well and anesthesia well with no complications. The patient was transports to the recovery room in good condition and vital signs stable. The patient did receive a left lower extremity popliteal block per the anesthesiology service in the recovery room for post operative pain control. Post op orders were placed, no weightbearing left foot, keep left foot elevated. She will be transferred back to her room on the floor for post op pain control and observation. Patient will be followed as inpatient. Post operative xrays were obtained of the ankle which confirmed proper ORIF in good position as noted above with no complications. Grafts/Implants Used: Arthrex fibular plate, Arthrex screws, Arthrex tight rope - Complications None
--- NOTE | 2018-10-28 13:14 | NURSING ---
Patient family requesting TCU on discharge
[2018-10-28] MEDS: hydroCHLOROthiazide 25 MG Tablet PO (15:38)
[2018-10-28] MEDS: Sertraline 50 MG Tablet PO (15:38)
[2018-10-28] MEDS: Losartan Potassium 100 MG Tablet PO (15:38)
[2018-10-28] MEDS: Pantoprazole Sodium 40 MG Tablet PO (15:38)
[2018-10-28] MEDS: Cefazolin 1 GM/50 ML BAG IV ×2 (15:42→23:46)
[2018-10-28] MEDS: Sertraline 100 MG Tablet PO (21:03)
[2018-10-29 02:30] VITALS: BP 120/59; PULSE 88; RESP 16; TEMP 36.9; O2SAT 98
[2018-10-29] MEDS: 0.9% Normal Saline 1,000 ML 100 ML IV ×2 (02:36→13:01)
[2018-10-29] MEDS: oxyCODONE 5 MG Tablet PO ×5 (04:07→22:24)
[2018-10-29] MEDS: Acetaminophen 325 MG Tablet 650 MG PO ×2 (04:07→22:25)
[2018-10-29] MEDS: Levothyroxine 100 MCG Tablet PO (05:28)
[2018-10-29 06:06] LABS: Absolute Lymphocyte Count 0.65 X10^3/ul (0.83-4.51); Absolute Neutrophil Count 5.5 X10^3/uL (2.0-7.7); Hematocrit 30.6 % (37-47); Hemoglobin 10.2 g/dl (12.0-15.0); Lymphocyte # 0.65 X10^3/ul (4.0); Lymphocyte % 9.2 % (19-41); Mean Corp Hgb Conc 33.3 g/gl (32-36); Mean Corpuscular Hgb 28.2 pg (27.0-32.0); Mean Corpuscular Volume 84.5 fL (81-99); Mean Platelet Vol. 9.4 fl (6.2-12.0); Monocyte# 0.89 X10^3/uL; Monocyte% 12.6 % (0-10); Neutrophil # 5.52 X10^3/uL (2.7-7.7); Neutrophil % 77.9 % (47-70); POSITIVE COUNT NO; POSITIVE DIFFERENTIAL NO; POSITIVE MORPHOLOGY NO; Platelet Count 198 K/mm3 (150-450); RBC Distribution Width CV 13.7 % (11.6-14.6); RBC Distribution Width SD 41.1 fl (35.1-43.9); Red Blood Count 3.62 M/mm3 (4.2-5.4); White Blood Count 7.1 K/mm3 (4.4-11.0)
[2018-10-29 06:27] LABS: Anion Gap 11 (5-15); BUN 12 mg/dL (7-18); BUN/Creat Ratio 12.3 RATIO (10-20); Calcium,Total 8.6 mg/dL (8.5-10.1); Chloride 110 mmol/L (98-107); Creatinine, Serum 0.98 mg/dL (0.55-1.02); EST Glomerular Filtration Rate 62 mL/min (>60); Est Glom Filt Rate - Afr Amer 75 mL/min (>60); Estimated Creatinine Clearance 51.76 ml/min; Glucose 116 mg/dL (74-106); Potassium 3.1 mmol/L (3.5-5.1); Sodium Level 145 mmol/L (136-145)
[2018-10-29] MEDS: Enoxaparin 40 MG/0.4 ML Syringe SC (06:29)
[2018-10-29] MEDS: Sertraline 50 MG Tablet PO (08:08)
[2018-10-29] MEDS: hydroCHLOROthiazide 25 MG Tablet PO (08:08)
[2018-10-29] MEDS: Losartan Potassium 100 MG Tablet PO (08:08)
[2018-10-29] MEDS: Pantoprazole Sodium 40 MG Tablet PO (08:08)
[2018-10-29] MEDS: Cefazolin 1 GM/50 ML BAG IV (08:09)
[2018-10-29 08:30] VITALS: BP 146/79; PULSE 73; RESP 18; TEMP 36.7; O2SAT 98
--- NOTE | 2018-10-29 08:51 | PCM.PROGNOTE ---
Patient Problems: Active and Suspected Problems Closed left ankle fracture (Acute) Subjective: Patient was seen this morning for follow up on left ankle fracture s/p ORIF on 10/28/18. Patient resting in bed, relates block wore off this morning, relates prior to that no pain. She relates pain is about 4-5/10 at the ankle, took oxyir, has not taken morphine since yesterday. She has no complaints of fever, chills, nausea, vomiting, chest pain, shortness of breath, calf pain, or heel pain. Patient afebrile, WBC normal, potassium still low at 3.1 - Physical Exam General: Alert, Oriented x3, Cooperative, No apparent distress Extremities: No cyanosis, Capillary Refill Less than 3 Seconds, No Calf Tenderness, - - Splint/dressing to the left foot/ankle clean, dry and intact, no suspicion of infect, CFT < 2 seconds to all toes, patient able to wiggle toes. Vital Signs Temp Pulse Resp BP Pulse Ox 98.0 F 73 18 146/79 H 98 10/29/18 08:30 10/29/18 08:30 10/29/18 08:30 10/29/18 08:30 10/29/18 08:30 Oxygen Flow Rate (L/min) [4] 6 Oxygen Flow Rate (L/min) [3] 6 Oxygen Flow Rate (L/min) [2] 6 Oxygen Flow Rate (L/min) [1 ( 2 Initial Baseline)] Oxygen Flow Rate (L/min) 2 Oxygen Delivery Method [4] Nasal Cannula Oxygen Delivery Method [3] Nasal Cannula Oxygen Delivery Method [2] Nasal Cannula Oxygen Delivery Method [1 ( Nasal Cannula Initial Baseline)] Oxygen Delivery Method Room Air Weight: 113.3 kg Body Mass Index (BMI) 44.2 Intake and Output for Last 24 Hours 10/27/18 10/28/18 10/29/18 23:59 23:59 23:59 Intake Total 894 / 894 4299 / 4299 563 / 563 Output Total 350 / 350 1200 / 1200 700 / 700 Balance 544 / 544 3099 / 3099 -137 / -137 Laboratory Tests Past 24 Hrs 10/28/18 10/29/18 10/29/18 05:43 05:30 05:30 WBC 7.1 RBC 3.62 L Hgb 10.2 L Hct 30.6 L MCV 84.5 MCH 28.2 MCHC 33.3 RDW 13.7 RDW Differential 41.1 Plt Count 198 MPV 9.4 Immature Gran % (Auto) 0.300 Neut % (Auto) 77.9 H Lymph % (Auto) 9.2 L [place] % (Auto) 12.6 H Eos % (Auto) 0.0 Baso % (Auto) 0.0 Absolute Neuts (auto) 5.5 Absolute Lymphs (auto) 0.65 L Total Counted Not Reportable Sodium 145 Potassium 3.1 L Chloride 110 H Carbon Dioxide 24.0 Anion Gap 11 BUN 12 Creatinine 0.98 Estim Creat Clear Calc 51.76 Est GFR (MDRD) Af Amer 75 Est GFR (MDRD) Non-Af 62 BUN/Creatinine Ratio 12.3 Glucose 116 H Calcium 8.6 Magnesium Cancelled 2.0 Medical Necessity - Tobacco Use Smoking Status: Never smoker Tobacco Use: Non-smoker Assessment/Plan All Active Problems Closed left ankle fracture (Acute) Left ankle trimalleolus ankle fracture s/p ORIF on 10/28/18 Reviewed operation details with patient. No weightbearing left foot. Keep splint dressing clean, dry and intact, and keep left foot elevated. Pain control: IV Morphine 2mg IV q 2 hours prn pain, oxyir 5-10mg PO q 4 hours prn pain...goal is to transition to just oral pain meds. DVT Prophylaxis: Lovenox 40mg subcutaneous once daily. Physical therapy consulted: No weightbearing left foot/ankle. Co-morbidities: Hypertension, Hyperlipidemia, GERD, hypokalemia, depression, and other medical problems: per medicine team, appreciate assistance. Discharge planning: Pending nursing facility placement for rehab. Case management consulted. Patient agrees to go to nursing facility due to overall health status, rehab, and needing to be nonweightbearing left foot/ankle with very little help at home.
--- NOTE | 2018-10-29 09:24 | DCINST_ITS ---
<Jayson Wharton - Last Filed: 10/29/18 09:24> Discharge Activity: May Not Drive Weight Bearing Status: No weight bearing - Strict nonweightbearing left foot/ankle Keep extremity elevated above heart level: Left Leg - Keep left foot/ankle elevated with pillows, with heel offloaded, for at least 50 minutes of every hour Call your doctor if your incision/area has: Continuous Slow Oozing, Sudden Increased Bleeding, Increased Pain/ Swelling, Foul Smelling Discharge Call your doctor if you observe: Fever of 101 or Higher, Coldness, Increased Pain, Shortness of breath, Chest pain, Calf discomfort, Uncontrolled pain Cleanse incision/area with: Do not get Incision Wet, Keep Dressing Clean & Dry Allergies/Adverse Reactions: Allergies No Known Allergies Allergy (Verified 10/27/18 14:53) Medications to take at Discharge Levothyroxine [Synthroid] 100 mcg PO DAILY 10/27/18 Losartan/Hydrochlorothiazide [Losartan-Hctz 100-25 mg Tab] 1 each PO DAILY 10/27/18 Pantoprazole Sodium [Protonix] 40 mg PO DAILY 10/27/18 Zoloft 50 mg PO DAILY 10/27/18 Zoloft 100 mg PO DAILY 10/27/18 Enoxaparin Sodium [Lovenox] 40 mg SQ DAILY #14 syringe 10/30/18 Oxycodone HCl/Acetaminophen [Percocet 5-325 mg Tablet] 1 ea PO Q6H PRN PRN 7 Days #40 tab 10/30/18 The following prescriptions were given: Oxycodone HCl/Acetaminophen [Percocet 5-325 mg Tablet] 1 ea PO Q6H PRN PRN 7 Days #40 tab PRN Reason: pain Enoxaparin Sodium [Lovenox] 40 mg SQ DAILY #14 syringe Primary Care Physician: Matthew Schneider MD [Primary Care Provider] - Test Results: Test results from this visit will be discussed in further detail at your follow- up appointment, if applicable. Please Follow Up With: Jayson Wharton DPM - Office address: [address] [place] [address], [facility] [place] When: next week, or sooner if needed. Call office for appointment at [phone] <Alessandro Barroso - Last Filed: 10/30/18 10:11> Discharge Diet: No Restrictions Discharge Activity: May Not Drive Test Results: Test results from this visit will be discussed in further detail at your follow- up appointment, if applicable.
[2018-10-29 09:48] LABS: Vitamin D,25 Hydroxy 37.9 ng/mL (29.95-100.01)
--- NOTE | 2018-10-29 11:55 | PCM.PN.HOSP ---
Patient Problems: Active and Suspected Problems Closed left ankle fracture (Acute) Subjective: Doing well, pain is controlled. No acute events overnight, she is pending discharge to [facility] Vitals/I&O's: Vital Signs Temp Pulse Resp BP Pulse Ox 98.0 F 73 18 146/79 H 98 10/29/18 08:30 10/29/18 08:30 10/29/18 08:30 10/29/18 08:30 10/29/18 08:30 Oxygen Flow Rate (L/min) [4] 6 Oxygen Flow Rate (L/min) [3] 6 Oxygen Flow Rate (L/min) [2] 6 Oxygen Flow Rate (L/min) [1 ( 2 Initial Baseline)] Oxygen Flow Rate (L/min) 2 Oxygen Delivery Method [4] Nasal Cannula Oxygen Delivery Method [3] Nasal Cannula Oxygen Delivery Method [2] Nasal Cannula Oxygen Delivery Method [1 ( Nasal Cannula Initial Baseline)] Oxygen Delivery Method Room Air Weight: 249 lb 12.54 oz Body Mass Index (BMI) 44.2 Intake and Output for Last 24 Hours 10/27/18 10/28/18 10/29/18 23:59 23:59 23:59 Intake Total 894 / 894 4299 / 4299 563 / 563 Output Total 350 / 350 1200 / 1200 700 / 700 Balance 544 / 544 3099 / 3099 -137 / -137 General: Alert, Oriented x3, Cooperative, No apparent distress HEENT: Atraumatic, PERRLA, EOMI, Normocephalic Oral: Moist Mucosa Neck: Supple, No JVD Lungs: Clear to auscultation, Normal air movement, No rhonchi, No wheeze, No rales, Diminished Cardiovascular: Regular rate, Regular Rhythm, Normal S1, No murmurs Abdomen: Soft, Non Tender, Non-Distended, No Hepato-splenomegaly Extremities: No edema, Capillary Refill Less than 3 Seconds Skin: No rashes, No breakdown, Incision - Left lower extremity is in a cast, she can move her toes and has sensation in her toes Neurological: Neuro grossly intact, Sensory exam intact to light touch and pain Psych/Mental Status: Normal Affect, Appropriate Laboratory Results 10/27/18 20:40: Vitamin D 25-Hydroxy 37.9 10/28/18 05:43: Magnesium Cancelled 10/29/18 05:30: WBC 7.1, RBC 3.62 L, Hgb 10.2 L, Hct 30.6 L, MCV 84.5, MCH 28.2, MCHC 33.3, RDW 13.7, RDW Differential 41.1, Plt Count 198, MPV 9.4, Immature Gran % (Auto) 0.300, Neut % (Auto) 77.9 H, Lymph % (Auto) 9.2 L, [place] % (Auto) 12.6 H, Eos % (Auto) 0.0, Baso % (Auto) 0.0, Absolute Neuts (auto) 5.5, Absolute Lymphs (auto) 0.65 L, Total Counted Not Reportable 10/29/18 05:30: Sodium 145, Potassium 3.1 L, Chloride 110 H, Carbon Dioxide 24.0, Anion Gap 11, BUN 12, Creatinine 0.98, Estim Creat Clear Calc 51.76, Est GFR (MDRD) Af Amer 75, Est GFR (MDRD) Non-Af 62, BUN/Creatinine Ratio 12.3, Glucose 116 H, Calcium 8.6, Magnesium 2.0 Current Medications Acetaminophen (Tylenol) 650 mg PO Q6H PRN PRN PRN Reason: Non-cardiac pain (mod-severe) Last Admin: 10/29/18 04:07 Dose: 650 mg Al Hydroxide/Mg Hydroxide (Mylanta Ii) 15 - 30 ml PO Q4H PRN PRN PRN Reason: INDIGESTION Albuterol Sulfate (Ventolin Aerosols) 2.5 mg INHALATION Q2H PRN PRN PRN Reason: dyspnea, wheezing Docusate Sodium (Colace) 100 mg PO BID PRN PRN PRN Reason: Constipation Enoxaparin Sodium (Lovenox) 40 mg SC 0700 [facility] Last Admin: 10/29/18 06:29 Dose: 40 mg Hydralazine HCl (Apresoline Iv) 10 mg IV Q4H PRN PRN PRN Reason: SBP > 160 Hydrochlorothiazide (Hctz) 25 mg PO DAILY [facility] Last Admin: 10/29/18 08:08 Dose: 25 mg Sodium Chloride () 1,000 mls @ 100 mls/hr IV .Q10H [facility] Last Admin: 10/29/18 02:36 Dose: 100 mls/hr Levothyroxine Sodium (Synthroid) 100 mcg PO DAILY@0600 [facility] Last Admin: 10/29/18 05:28 Dose: 100 mcg Losartan Potassium (Cozaar) 100 mg PO DAILY [facility] Last Admin: 10/29/18 08:08 Dose: 100 mg Morphine Sulfate () 2 mg IV Q2H PRN PRN PRN Reason: SEVERE PAIN (6-1010) Last Admin: 10/28/18 05:29 Dose: 2 mg Ondansetron HCl (Zofran) 4 mg IV Q8H PRN PRN PRN Reason: NAUSEA/VOMITING Oxycodone HCl (Oxyir) 5 - 10 mg PO Q4H PRN PRN PRN Reason: SEVERE PAIN (6-10) Last Admin: 10/29/18 09:45 Dose: 10 mg Pantoprazole Sodium (Protonix) 40 mg PO DAILY [facility] Last Admin: 10/29/18 08:08 Dose: 40 mg Sertraline HCl (Zoloft) 100 mg PO QHS [facility] Last Admin: 10/28/18 21:03 Dose: 100 mg Sertraline HCl (Zoloft) 50 mg PO DAILY [facility] Last Admin: 10/29/18 08:08 Dose: 50 mg Sodium Chloride () 5 - 15 ml IV UD PRN PRN Reason: SALINE FLUSH Last Admin: 10/28/18 05:29 Dose: 10 ml Medical Necessity - Tobacco Use Smoking Status: Never smoker Tobacco Use: Non-smoker Assessment/Plan All Active Problems Closed left ankle fracture (Acute) 1. Acute left trimalleolar fracture dislocation -Sustained this injury from a mechanical fall -Underwent ORIF successfully, leg is currently dressed -Pain management per primary -Plan for DC to SNF when able -She is stable for discharge from medical stand 2. HTN/morbid obesity -Blood pressure has been stable -Continue with home medications -BMI is 44.2, lifestyle modifications advised 3. Hypothyroidism secondary to thyroid cancer status post resection -Stable -Continue with Synthroid 4. GERD -Stable -Continue with PPI 5. Depression/anxiety -Stable -Continue with SSRI 6. Hypokalemia -Potassium today is 3.1 with a normal magnesium -Give 60 mEq of p.o. potassium DVT: Lovenox Code Visit OBSV E&M: 46643 Subsequent observation care L2
--- NOTE | 2018-10-29 11:59 | PN_ITS ---
Patient Problems: Active and Suspected Problems Closed left ankle fracture (Acute) Subjective: Doing well, pain is controlled. No acute events overnight, she is pending discharge to [facility] Vitals/I&O's: Vital Signs Temp Pulse Resp BP Pulse Ox 98.0 F 73 18 146/79 H 98 10/29/18 08:30 10/29/18 08:30 10/29/18 08:30 10/29/18 08:30 10/29/18 08:30 Oxygen Flow Rate (L/min) [4] 6 Oxygen Flow Rate (L/min) [3] 6 Oxygen Flow Rate (L/min) [2] 6 Oxygen Flow Rate (L/min) [1 ( 2 Initial Baseline)] Oxygen Flow Rate (L/min) 2 Oxygen Delivery Method [4] Nasal Cannula Oxygen Delivery Method [3] Nasal Cannula Oxygen Delivery Method [2] Nasal Cannula Oxygen Delivery Method [1 ( Nasal Cannula Initial Baseline)] Oxygen Delivery Method Room Air Weight: 249 lb 12.54 oz Body Mass Index (BMI) 44.2 Intake and Output for Last 24 Hours 10/27/18 10/28/18 10/29/18 23:59 23:59 23:59 Intake Total 894 / 894 4299 / 4299 563 / 563 Output Total 350 / 350 1200 / 1200 700 / 700 Balance 544 / 544 3099 / 3099 -137 / -137 General: Alert, Oriented x3, Cooperative, No apparent distress HEENT: Atraumatic, PERRLA, EOMI, Normocephalic Oral: Moist Mucosa Neck: Supple, No JVD Lungs: Clear to auscultation, Normal air movement, No rhonchi, No wheeze, No rales, Diminished Cardiovascular: Regular rate, Regular Rhythm, Normal S1, No murmurs Abdomen: Soft, Non Tender, Non-Distended, No Hepato-splenomegaly Extremities: No edema, Capillary Refill Less than 3 Seconds Skin: No rashes, No breakdown, Incision - Left lower extremity is in a cast, she can move her toes and has sensation in her toes Neurological: Neuro grossly intact, Sensory exam intact to light touch and pain Psych/Mental Status: Normal Affect, Appropriate Laboratory Results 10/27/18 20:40: Vitamin D 25-Hydroxy 37.9 10/28/18 05:43: Magnesium Cancelled 10/29/18 05:30: WBC 7.1, RBC 3.62 L, Hgb 10.2 L, Hct 30.6 L, MCV 84.5, MCH 28.2, MCHC 33.3, RDW 13.7, RDW Differential 41.1, Plt Count 198, MPV 9.4, Immature Gran % (Auto) 0.300, Neut % (Auto) 77.9 H, Lymph % (Auto) 9.2 L, [place] % (Auto) 12.6 H, Eos % (Auto) 0.0, Baso % (Auto) 0.0, Absolute Neuts (auto) 5.5, Absolute Lymphs (auto) 0.65 L, Total Counted Not Reportable 10/29/18 05:30: Sodium 145, Potassium 3.1 L, Chloride 110 H, Carbon Dioxide 24.0, Anion Gap 11, BUN 12, Creatinine 0.98, Estim Creat Clear Calc 51.76, Est GFR (MDRD) Af Amer 75, Est GFR (MDRD) Non-Af 62, BUN/Creatinine Ratio 12.3, Glucose 116 H, Calcium 8.6, Magnesium 2.0 Current Medications Acetaminophen (Tylenol) 650 mg PO Q6H PRN PRN PRN Reason: Non-cardiac pain (mod-severe) Last Admin: 10/29/18 04:07 Dose: 650 mg Al Hydroxide/Mg Hydroxide (Mylanta Ii) 15 - 30 ml PO Q4H PRN PRN PRN Reason: INDIGESTION Albuterol Sulfate (Ventolin Aerosols) 2.5 mg INHALATION Q2H PRN PRN PRN Reason: dyspnea, wheezing Docusate Sodium (Colace) 100 mg PO BID PRN PRN PRN Reason: Constipation Enoxaparin Sodium (Lovenox) 40 mg SC 0700 [facility] Last Admin: 10/29/18 06:29 Dose: 40 mg Hydralazine HCl (Apresoline Iv) 10 mg IV Q4H PRN PRN PRN Reason: SBP > 160 Hydrochlorothiazide (Hctz) 25 mg PO DAILY [facility] Last Admin: 10/29/18 08:08 Dose: 25 mg Sodium Chloride () 1,000 mls @ 100 mls/hr IV .Q10H [facility] Last Admin: 10/29/18 02:36 Dose: 100 mls/hr Levothyroxine Sodium (Synthroid) 100 mcg PO DAILY@0600 [facility] Last Admin: 10/29/18 05:28 Dose: 100 mcg Losartan Potassium (Cozaar) 100 mg PO DAILY [facility] Last Admin: 10/29/18 08:08 Dose: 100 mg Morphine Sulfate () 2 mg IV Q2H PRN PRN PRN Reason: SEVERE PAIN (6-1010) Last Admin: 10/28/18 05:29 Dose: 2 mg Ondansetron HCl (Zofran) 4 mg IV Q8H PRN PRN PRN Reason: NAUSEA/VOMITING Oxycodone HCl (Oxyir) 5 - 10 mg PO Q4H PRN PRN PRN Reason: SEVERE PAIN (6-10) Last Admin: 10/29/18 09:45 Dose: 10 mg Pantoprazole Sodium (Protonix) 40 mg PO DAILY [facility] Last Admin: 10/29/18 08:08 Dose: 40 mg Sertraline HCl (Zoloft) 100 mg PO QHS [facility] Last Admin: 10/28/18 21:03 Dose: 100 mg Sertraline HCl (Zoloft) 50 mg PO DAILY [facility] Last Admin: 10/29/18 08:08 Dose: 50 mg Sodium Chloride () 5 - 15 ml IV UD PRN PRN Reason: SALINE FLUSH Last Admin: 10/28/18 05:29 Dose: 10 ml Medical Necessity - Tobacco Use Smoking Status: Never smoker Tobacco Use: Non-smoker Assessment/Plan All Active Problems Closed left ankle fracture (Acute) 1. Acute left trimalleolar fracture dislocation -Sustained this injury from a mechanical fall -Underwent ORIF successfully, leg is currently dressed -Pain management per primary -Plan for DC to SNF when able -She is stable for discharge from medical stand 2. HTN/morbid obesity -Blood pressure has been stable -Continue with home medications -BMI is 44.2, lifestyle modifications advised 3. Hypothyroidism secondary to thyroid cancer status post resection -Stable -Continue with Synthroid 4. GERD -Stable -Continue with PPI 5. Depression/anxiety -Stable -Continue with SSRI 6. Hypokalemia -Potassium today is 3.1 with a normal magnesium -Give 60 mEq of p.o. potassium DVT: Lovenox Code Visit OBSV E&M: 33102 Subsequent observation care L2
--- NOTE | 2018-10-29 13:33 | CASEMGMT ---
Social Work Note RICA met with pt as pt is listed as self-pay. SW introduced self and role at [facility]. Pt is alert and orientated x4. Pt states that she lives with her and sister in a one story home with 3 acres and with 4-5 steps to enter. Pt states that she was previously independent with ADLs. DME include crutches, cane and high rise toilet seat. Pt states that her sister in law has a walker and knee scooter that she will be able to use. Pharmacy is [facility] in [place] and PCP is Dr. Schneider. Pt confirms that she doesn't have insurance. 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 Pt states that she had been asking for a clinical psychologist private practice position at her head of partner development job but that there are no clinical psychologist private practice positions available. Pt states that PFS met with her and she was informed that she wouldn't qualify for Medicaid or for HCAP as her income is too high. Pt states that she was also informed that her home insurance won't cover her medical bills either. RICA offered support to pt. Pt states that she will have to return home at discharge as she doesn't have insurance and she can't afford a SNF. RICA educated pt on going to SNF under pending Medicaid but that if PFS is stating she wouldn't qualify for Medicaid then pt would get a bill for private pay at SNF. Again pt states that she can't afford paying privately for SNF. RICA did provide pt with financial resources including Medicaid application, [employer], [facility], Ina Sandoval, RX assistance program and [facility] assistance. Pt states that she may need a wheelchair at discharge. SW informed pt that RN KEVEN can speak with her regarding wheelchair. Pt states understanding, denied additional needs or concerns at this time. Plan: Pt to discharge home Yadira Lorenzana LIFESTYLE DIRECTOR, CLOTHING PATTERN PREPARER
--- NOTE | 2018-10-29 13:40 | CASEMGMT ---
RN KEVEN Face to Face with patient for initial transition planning/care coordination assessment. RN CM introduced self and role at [facility]. Patient lying in bed, alert and oriented. Patient willing to participate in assessment and is able to answer all questions appropriately. Care providers, pharmacy, and demographics verified. Patient wishes to discharge home, denies need for home health at this time. Patient states she has no further needs or concerns at this time. CM to follow for discharge planning needs that may arise. PCP: [facility] Specialists: None Insurance: Self pay Prescription Benefit: none Living Will/HPOA: none LNOK: Living Arrangements: Patient lives with and sister in 1 story home with 5 steps with railing x2. Transportation: self/ DME/HHC: Patient has raised toilet seat, cane, crutches, walker, and knee walker at home. Disposition Plan: Patient to discharge home with family support and follow-up plans in place. Yadira YEE, RN, CM
[2018-10-29 14:00] VITALS: BP 132/68; PULSE 85; RESP 18; TEMP 36.7; O2SAT 98
[2018-10-29 19:48] VITALS: BP 127/75; PULSE 85; RESP 16; TEMP 37.3; O2SAT 94
[2018-10-29] MEDS: Sertraline 100 MG Tablet PO (22:25)
[2018-10-30 02:00] VITALS: BP 99/50; PULSE 81; RESP 16; TEMP 36.9; O2SAT 93
[2018-10-30] MEDS: Enoxaparin 40 MG/0.4 ML Syringe SC (06:15)
[2018-10-30] MEDS: Levothyroxine 100 MCG Tablet PO (06:15)
[2018-10-30 06:28] LABS: Anion Gap 6 (5-15); BUN 13 mg/dL (7-18); BUN/Creat Ratio 14.6 RATIO (10-20); Calcium,Total 8.8 mg/dL (8.5-10.1); Chloride 114 mmol/L (98-107); Creatinine, Serum 0.89 mg/dL (0.55-1.02); EST Glomerular Filtration Rate 69 mL/min (>60); Est Glom Filt Rate - Afr Amer 83 mL/min (>60); Glucose 96 mg/dL (74-106); Potassium 3.9 mmol/L (3.5-5.1); Sodium Level 143 mmol/L (136-145)
--- NOTE | 2018-10-30 06:53 | PN_ITS ---
Patient Problems: Active and Suspected Problems Closed left ankle fracture (Acute) Subjective: Feels great today, she was able to sleep after being given the oxycodone with Tylenol. Pain is much improved. Vitals/I&O's: Vital Signs Temp Pulse Resp BP Pulse Ox 98.5 F 81 16 99/50 L 93 10/30/18 02:00 10/30/18 02:00 10/30/18 02:00 10/30/18 02:00 10/30/18 02:00 Oxygen Flow Rate (L/min) [4] 6 Oxygen Flow Rate (L/min) [3] 6 Oxygen Flow Rate (L/min) [2] 6 Oxygen Flow Rate (L/min) [1 ( 2 Initial Baseline)] Oxygen Flow Rate (L/min) 2 Oxygen Delivery Method [4] Nasal Cannula Oxygen Delivery Method [3] Nasal Cannula Oxygen Delivery Method [2] Nasal Cannula Oxygen Delivery Method [1 ( Nasal Cannula Initial Baseline)] Oxygen Delivery Method Room Air Weight: 249 lb 12.54 oz Body Mass Index (BMI) 44.2 Intake and Output for Last 24 Hours 10/28/18 10/29/18 10/30/18 23:59 23:59 23:59 Intake Total 4299 / 4299 3364 / 3364 1543 / 1543 Output Total 1200 / 1200 1475 / 1475 450 / 450 Balance 3099 / 3099 1889 / 1889 1093 / 1093 General: Alert, Oriented x3, Cooperative, No apparent distress HEENT: Atraumatic, PERRLA, EOMI, Normocephalic Oral: Moist Mucosa Neck: Supple, No JVD Lungs: Clear to auscultation, Normal air movement, No rhonchi, No wheeze, No rales, Diminished Cardiovascular: Regular rate, Regular Rhythm, Normal S1, No murmurs Abdomen: Soft, Non Tender, Non-Distended, No Hepato-splenomegaly Extremities: No edema, Capillary Refill Less than 3 Seconds Skin: No rashes, No breakdown, Incision - Left lower extremity is in a cast, she can move her toes and has sensation in her toes Neurological: Neuro grossly intact, Sensory exam intact to light touch and pain Psych/Mental Status: Normal Affect, Appropriate Laboratory Results 10/27/18 20:40: Vitamin D 25-Hydroxy 37.9 10/30/18 05:54: Sodium 143, Potassium 3.9, Chloride 114 H, Carbon Dioxide 23.0, Anion Gap 6, BUN 13, Creatinine 0.89, Estim Creat Clear Calc 57.00, Est GFR (MDRD) Af Amer 83, Est GFR (MDRD) Non-Af 69, BUN/Creatinine Ratio 14.6, Glucose 96, Calcium 8.8 Current Medications Acetaminophen (Tylenol) 650 mg PO Q6H PRN PRN PRN Reason: Non-cardiac pain (mod-severe) Last Admin: 10/29/18 22:25 Dose: 650 mg Al Hydroxide/Mg Hydroxide (Mylanta Ii) 15 - 30 ml PO Q4H PRN PRN PRN Reason: INDIGESTION Albuterol Sulfate (Ventolin Aerosols) 2.5 mg INHALATION Q2H PRN PRN PRN Reason: dyspnea, wheezing Docusate Sodium (Colace) 100 mg PO BID PRN PRN PRN Reason: Constipation Enoxaparin Sodium (Lovenox) 40 mg SC 0700 [facility] Last Admin: 10/30/18 06:15 Dose: 40 mg Hydralazine HCl (Apresoline Iv) 10 mg IV Q4H PRN PRN PRN Reason: SBP > 160 Hydrochlorothiazide (Hctz) 25 mg PO DAILY [facility] Last Admin: 10/29/18 08:08 Dose: 25 mg Levothyroxine Sodium (Synthroid) 100 mcg PO DAILY@0600 [facility] Last Admin: 10/30/18 06:15 Dose: 100 mcg Losartan Potassium (Cozaar) 100 mg PO DAILY [facility] Last Admin: 10/29/18 08:08 Dose: 100 mg Morphine Sulfate () 2 mg IV Q2H PRN PRN PRN Reason: SEVERE PAIN (-02/28) Last Admin: 10/28/18 05:29 Dose: 2 mg Ondansetron HCl (Zofran) 4 mg IV Q8H PRN PRN PRN Reason: NAUSEA/VOMITING Oxycodone HCl (Oxyir) 5 - 10 mg PO Q4H PRN PRN PRN Reason: SEVERE PAIN (6-02/28) Last Admin: 10/29/18 22:24 Dose: 10 mg Pantoprazole Sodium (Protonix) 40 mg PO DAILY [facility] Last Admin: 10/29/18 08:08 Dose: 40 mg Sertraline HCl (Zoloft) 100 mg PO QHS [facility] Last Admin: 10/29/18 22:25 Dose: 100 mg Sertraline HCl (Zoloft) 50 mg PO DAILY [facility] Last Admin: 10/29/18 08:08 Dose: 50 mg Sodium Chloride () 5 - 15 ml IV UD PRN PRN Reason: SALINE FLUSH Last Admin: 10/28/18 05:29 Dose: 10 ml Medical Necessity - Tobacco Use Smoking Status: Never smoker Tobacco Use: Non-smoker Assessment/Plan All Active Problems Closed left ankle fracture (Acute) 1. Acute left trimalleolar fracture dislocation -Sustained this injury from a mechanical fall -Underwent ORIF successfully, leg is currently dressed -Pain management per primary -Plan for DC to SNF when able -She is stable for discharge from medical stand 2. HTN/morbid obesity -Blood pressure has been stable -Continue with home medications -BMI is 44.2, lifestyle modifications advised 3. Hypothyroidism secondary to thyroid cancer status post resection -Stable -Continue with Synthroid 4. GERD -Stable -Continue with PPI 5. Depression/anxiety -Stable -Continue with SSRI 6. Hypokalemia -Potassium today is 3.9 DVT: Lovenox Code Visit OBSV E&M: 38892 Subsequent observation care L2
[2018-10-30] MEDS: Acetaminophen 325 MG Tablet 650 MG PO (06:58)
[2018-10-30 07:32] VITALS: BP 134/77; PULSE 78; RESP 20; TEMP 37; O2SAT 99
[2018-10-30] MEDS: Losartan Potassium 100 MG Tablet PO (09:40)
[2018-10-30] MEDS: hydroCHLOROthiazide 25 MG Tablet PO (09:40)
[2018-10-30] MEDS: Pantoprazole Sodium 40 MG Tablet PO (09:40)
[2018-10-30] MEDS: Sertraline 50 MG Tablet PO (09:41)
--- NOTE | 2018-10-30 10:01 | PN_ITS ---
Patient Problems: Active and Suspected Problems Closed left ankle fracture (Acute) Subjective: Patient was seen this morning for follow up on left ankle fracture s/p ORIF on 10/28/[address] Wharton. Patient resting bedside. Patient says pain is very well controlled today on oral pain medication. She has no complaints of fever, chil ls, nausea, vomiting, chest pain, shortness of breath, calf pain, or heel pain. Patient afebrile, WBC normal. - Physical Exam General: Alert, Oriented x3, Cooperative, No apparent distress Extremities: No cyanosis, Capillary Refill Less than 3 Seconds, No Calf Tenderness, - - Splint/dressing to the left foot/ankle clean, dry and intact, no suspicion of infect, CFT < 2 seconds to all toes, patient able to wiggle toes Vital Signs Temp Pulse Resp BP Pulse Ox 98.6 F 78 20 H 134/77 H 99 10/30/18 07:32 10/30/18 07:32 10/30/18 07:32 10/30/18 07:32 10/30/18 07:32 Oxygen Flow Rate (L/min) [4] 6 Oxygen Flow Rate (L/min) [3] 6 Oxygen Flow Rate (L/min) [2] 6 Oxygen Flow Rate (L/min) [1 ( 2 Initial Baseline)] Oxygen Flow Rate (L/min) 2 Oxygen Delivery Method [4] Nasal Cannula Oxygen Delivery Method [3] Nasal Cannula Oxygen Delivery Method [2] Nasal Cannula Oxygen Delivery Method [1 ( Nasal Cannula Initial Baseline)] Oxygen Delivery Method Room Air Weight: 113.3 kg Body Mass Index (BMI) 44.2 Intake and Output for Last 24 Hours 10/28/18 10/29/18 10/30/18 23:59 23:59 23:59 Intake Total 4299 / 4299 3364 / 3364 1543 / 1543 Output Total 1200 / 1200 1475 / 1475 450 / 450 Balance 3099 / 3099 1889 / 1889 1093 / 1093 Laboratory Tests Past 24 Hrs 10/30/18 05:54 Sodium 143 Potassium 3.9 Chloride 114 H Carbon Dioxide 23.0 Anion Gap 6 BUN 13 Creatinine 0.89 Estim Creat Clear Calc 57.00 Est GFR (MDRD) Af Amer 83 Est GFR (MDRD) Non-Af 69 BUN/Creatinine Ratio 14.6 Glucose 96 Calcium 8.8 Medical Necessity - Tobacco Use Smoking Status: Never smoker Tobacco Use: Non-smoker Assessment/Plan All Active Problems Closed left ankle fracture (Acute) Left ankle trimalleolus ankle fracture s/p ORIF on 10/28/[address] Wharton. No weightbearing left foot. Keep splint dressing clean, dry and intact, and keep left foot elevated. Pain control: Patient will be discharged home with percocet prescription to be taken as directed. DVT Prophylaxis: Lovenox 40mg subcutaneous once daily to be continued at home. Patient will be using wheel chair she is receiving from family member. Co-morbidities: Hypertension, Hyperlipidemia, GERD, depression, and other medical problems: per medicine team, appreciate assistance. Discharge planning: Patient will be discharged home today. She will follow up in office with Dr. Wharton early next week. This was discussed with patient.
--- NOTE | 2018-10-30 10:22 | DS.PCM_ITS ---
Discharge Date and Diagnosis - Problem List Patient Problems: Active and Suspected Problems Closed left ankle fracture (Acute) Date of Admission: 10/27/18 Date of Discharge: 10/30/18 - Primary Discharge Diagnosis Active and Suspected Problems Closed left ankle fracture (Acute) - Secondary Discharge Diagnosis Chronic Problems Hypertension (Chronic) Hypothyroidism (Chronic) Morbid obesity (Chronic) Anxiety and depression (Chronic) HLD (hyperlipidemia) (Chronic) Chronic back pain (Chronic) GERD (gastroesophageal reflux disease) (Chronic) Hospital Course and Treatment Operations: - - Patient had ORIF of left closed trimalleolar ankle fracture 10/28 Summary of Care Provided: The patient is a 58 year old F. Patient s/p ORIF left closed trimalleolar ankle fracture on 10/28/18.[] Patient Problems: Active and Suspected Problems Closed left ankle fracture (Acute) Subjective: Patient was seen this morning for follow up on left ankle fracture s/p ORIF on 10/28/[address] Wharton. Patient resting bedside. Patient says pain is very well controlled today on oral pain medication. She has no complaints of fever, chills, nausea, vomiting, chest pain, shortness of breath, calf pain, or heel pain. Patient afebrile, WBC normal. - Physical Exam General: Alert, Oriented x3, Cooperative, No apparent distress Extremities: No cyanosis, Capillary Refill Less than 3 Seconds, No Calf Tenderness, - - Splint/dressing to the left foot/ankle clean, dry and intact, no suspicion of infection, CFT < 2 seconds to all toes, patient able to move toes Neurological: Sensory exam intact to light touch and pain Psych/Mental Status: Normal Affect, Appropriate Vital Signs Temp Pulse Resp BP Pulse Ox 98.6 F 78 20 H 134/77 H 99 10/30/18 07:32 10/30/18 07:32 10/30/18 07:32 10/30/18 07:32 10/30/18 07:32 Oxygen Flow Rate (L/min) [4] 6 Oxygen Flow Rate (L/min) [3] 6 Oxygen Flow Rate (L/min) [2] 6 Oxygen Flow Rate (L/min) [1 ( 2 Initial Baseline)] Oxygen Flow Rate (L/min) 2 Oxygen Delivery Method [4] Nasal Cannula Oxygen Delivery Method [3] Nasal Cannula Oxygen Delivery Method [2] Nasal Cannula Oxygen Delivery Method [1 ( Nasal Cannula Initial Baseline)] Oxygen Delivery Method Room Air Weight: 113.3 kg Body Mass Index (BMI) 44.2 Intake and Output for Last 24 Hours 10/28/18 10/29/18 10/30/18 23:59 23:59 23:59 Intake Total 4299 / 4299 3364 / 3364 1543 / 1543 Output Total 1200 / 1200 1475 / 1475 450 / 450 Balance 3099 / 3099 1889 / 1889 1093 / 1093 Laboratory Tests Past 24 Hrs 10/30/18 05:54 Sodium 143 Potassium 3.9 Chloride 114 H Carbon Dioxide 23.0 Anion Gap 6 BUN 13 Creatinine 0.89 Estim Creat Clear Calc 57.00 Est GFR (MDRD) Af Amer 83 Est GFR (MDRD) Non-Af 69 BUN/Creatinine Ratio 14.6 Glucose 96 Calcium 8.8 Discharge Diet: No Restrictions Discharge Activity: May Not Drive Weight Bearing Status: No weight bearing - Strict nonweightbearing left foot/ankle Keep extremity elevated above heart level: Left Leg - Keep left foot/ankle elevated with pillows, with heel offloaded, for at least 50 minutes of every hour Call your doctor if your incision/area has: Continuous Slow Oozing, Sudden Increased Bleeding, Increased Pain/ Swelling, Foul Smelling Discharge Call your doctor if you observe: Fever of 101 or Higher, Coldness, Increased Pain, Shortness of breath, Chest pain, Calf discomfort, Uncontrolled pain Cleanse incision/area with: Do not get Incision Wet, Keep Dressing Clean & Dry Home Medications: Medications to take at Discharge Levothyroxine [Synthroid] 100 mcg PO DAILY 10/27/18 Losartan/Hydrochlorothiazide [Losartan-Hctz 100-25 mg Tab] 1 each PO DAILY 10/27/18 Pantoprazole Sodium [Protonix] 40 mg PO DAILY 10/27/18 Zoloft 50 mg PO DAILY 10/27/18 Zoloft 100 mg PO DAILY 10/27/18 Enoxaparin Sodium [Lovenox] 40 mg SQ DAILY #14 syringe 10/30/18 Oxycodone HCl/Acetaminophen [Percocet 5-325 mg Tablet] 1 ea PO Q6H PRN PRN 7 Days #40 tab 10/30/18 Following Prescrptions Were Given to Patient: Oxycodone HCl/Acetaminophen [Percocet 5-325 mg Tablet] 1 ea PO Q6H PRN PRN 7 Days #40 tab PRN Reason: pain Enoxaparin Sodium [Lovenox] 40 mg SQ DAILY #14 syringe Primary Care Physician: Matthew Schneider MD [Primary Care Provider] - Please Follow Up With: Jayson Wharton DPM - Office address: [address] [place] [address] When: next week, or sooner if needed. Call office for appointment at [phone] Disposition: Home Patient Condition:: Stable Medical Necessity - Tobacco Use Smoking Status: Never smoker Tobacco Use: Non-smoker Meaningful Use Info Meaningful Use Diagnoses (Choose all that apply): None applicable
--- NOTE | 2018-10-30 15:10 | CASEMGMT ---
Social Work Note RICA and RN KEVEN Herring met with pt and pt's sister. Pt gave permission for this worker and RN KEVEN to speak to her in front of her guest. Pt's sister had concerned with pt going home due to pt having steps to enter the home. SW reviewed PT notes and pt was educated on how to get up and down steps at home. Pt's sister updated on this. Pt's sister informed that the other option would be for pt to pay privately at SNF as pt won't likely qualify for Medicaid. Pt and pt's sister agreeable to discharge home today. RN updated. Plan: Pt to discharge home today Yadira Lorenzana [employer], [employer]
[2018-10-30 15:41] VITALS: PULSE 84; RESP 18; TEMP 36.9; O2SAT 100
== END 2018-10-30 16:05 | disposition home or self-care (01) ==
LOC: ED 15:11 → MS3 17:49
PROVIDERS: Internal Medicine; Admitting Provider Podiatrist; Emergency Provider Emergency Medicine; Visit Provider Family Medicine
PROC: (CPT 27822; principal; 2019-01-28 08:00)
DX: M25.572 Pain in left ankle and joints of left foot (principal); S82.852A Displaced trimalleolar fracture of left lower leg, initial encounter for closed fracture; I10 Essential (primary) hypertension; E66.01 Morbid (severe) obesity due to excess calories; E78.5 Hyperlipidemia, unspecified; F41.8 Other specified anxiety disorders; K21.9 Gastro-esophageal reflux disease without esophagitis; Z68.41 Body mass index [BMI] 40.0-44.9, adult; Z71.3 Dietary counseling and surveillance; Z79.899 Other long term (current) drug therapy; Z85.850 Personal history of malignant neoplasm of thyroid; W10.8XXA Fall (on) (from) other stairs and steps, initial encounter; Y93.K1 Activity, walking an animal; Y92.008 Other place in unspecified non-institutional (private) residence as the place of occurrence of the external cause; N28.9 Disorder of kidney and ureter, unspecified; E87.6 Hypokalemia; E89.0 Postprocedural hypothyroidism
CPT/HCPCS: 01480; 27818; 27822; 36415; 71045; 72040; 73502; 73600; 73610; 73700; 76000; 80048; 82306; 83735; 85025; 93005; 96361; 96365; 96366; 96372; 96375; 96376; 97161; 97530; 99152; 99218; 99285; C1713; J7030; A4216; C1769; G0378

== ENCOUNTER → 2020-05-06 09:00 | Outpatient (CLI) | payer MEDICAID, SELFPAY ==
[2020-05-06 08:25] VITALS: BMI 43.4
[2020-05-06 13:01] LABS: Thyroid Stim Hormone (TSH) 0.44 uIU/mL (0.358-3.74)
[2020-05-07 22:48] LABS: Anti-Thyroglobulin AB < 1.0 IU/mL (0.0-0.9); Thyroglobulin, Serum Qt. < 0.1 ng/mL (1.5-38.5)
== END ==
PROVIDERS: PCP Internal Medicine; Referring Provider Internal Medicine; Visit Provider Internal Medicine
DX: E03.9 Hypothyroidism, unspecified (principal); Z85.850 Personal history of malignant neoplasm of thyroid
CPT/HCPCS: 36415; 84432; 84443; 86800

== ENCOUNTER → 2020-06-03 08:34 | Outpatient (CLI) | payer MEDICAID, SELFPAY ==
[2020-05-06 08:25] VITALS: BMI 43.4
--- NOTE | 2020-06-03 08:36 | BI_ITS ---
MAMMOGRAPHY - BILATERAL SCREENING REASON FOR EXAM: Female, 60 years old. Routine annual screening examination. PERTINENT HISTORY: Mother with breast cancer. Remote right breast biopsy. TECHNIQUE: Digital bilateral breast chapin (3D mammographic acquisition) in the CC and MLO projections. 2-D mediolateral oblique (MLO) and craniocaudad (CC) views of both breasts were obtained. CAD: Full Field Digital Mammography with Computer Added Detection was performed. COMPARISON: None. Baseline examination. FINDINGS: Breast Composition: The breasts are heterogeneously dense, which may obscure small masses. There are no dominant masses or suspicious calcifications. A tissue clip marker is seen in the upper anterior lateral aspect of the right breast. Benign-appearing bilateral axillary lymph nodes. No other significant abnormalities are identified. There has been no significant change since the prior study. BI/SCREEN MAMM (CAD) W/CHAPIN BILAT IMPRESSION: Stable bilateral screening mammogram. Yearly follow-up mammogram recommended. (A) ASSESSMENT CATEGORY: BIRADS Category 2: Benign. A letter regarding these results will be sent to the patient by the facility within 30 days. Approximately 10% of breast cancers are not detected by mammography. A normal mammogram should not delay biopsy of a clinically suspicious abnormality. [id number] Electronically Signed: Zeeshan Boyer, at 9:50 EST , Service support ,
== END ==
PROVIDERS: PCP Internal Medicine; Referring Provider Internal Medicine; Visit Provider Internal Medicine
DX: Z12.31 Encounter for screening mammogram for malignant neoplasm of breast (principal)
CPT/HCPCS: 77063; 77067

== ENCOUNTER 2020-07-29 06:53 | Day surgery (SDC) | payer MEDICAID, SELFPAY ==
[2020-05-06 08:25] VITALS: BMI 43.4
[2020-07-29] VITALS (7 sets, daily range): BP systolic 112–155; BP diastolic 70–87; PULSE 74–98; RESP 16; TEMP 36.3–37.4; O2SAT 97–100; BMI 36.7
[2020-07-29] MEDS: Lactated Ringers 1,000 ML 100 ML IV (07:20)
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
--- NOTE | 2020-07-29 08:00 | COLBX_PTH ---
PATIENT: ELIZABETH MERRITT LOC: EN U#:[id number] AGE/SX: 60/F ROOM: RE07/29/[address]: Dr. Loretta Dos Santos MD : 1960 BED: DIS: 07/29/2020 SPEC #: [id number] RECD: 07/29/20 10:57 STATUS: STEPHANIE ANGEL LUIS #: [id number] IDALMIS: 07/29/20 08:[address]: Loretta Dos Santos DEPT: SURGICAL PATHOLOGY RECD BY: Rosa Bower ENTERED: 07/29/20 11:48 SP TYPE: COLON BX OTHR DR: Dr. Kanika Gordon MD Tissues: Descending colon Procedures: Surgery Specimen Level IV HEADER OPERATION: Colonoscopy - open access (MAC) PRE-OP DIAGNOSIS: Screening TISSUE SUBMITTED: Descending colon polyp MICROSCOPIC DIAGNOSIS Descending colon polyp, biopsy: Tubular adenoma. MOE:rusty 07/30/2020 MICROSCOPIC DESCRIPTION Slides are reviewed. GROSS DESCRIPTION Received in fixative is one container labeled with the patient's name and designated descending colon polyp biopsy. The specimen consists of one irregular fragment of light faulkner soft tissue that measures 0.3 x 0.1 x 0.1 cm. The specimen is totally submitted in one cassette. / SJ:rusty 07/29/20 TC:1 CPT: 48014
--- NOTE | 2020-07-29 08:25 | OP.COLON_ITS ---
Patient Name: Shannan Munoz Procedure Date: 07/29/2020 7:27 AM Date of : 1960 Age: 60 Procedure: Colonoscopy Indications: Screening for colorectal malignant neoplasm Providers: Loretta Dos Santos MD Referring MD: Kanika Gordon MD Medicines: Monitored Anesthesia Care Patient Profile: This is a 60 year old female. Last Colonoscopy: none. The patient's first colonoscopy is today. Complications: No immediate complications. Procedure: Pre-Anesthesia Assessment: - Prior to the procedure, a History and Physical was performed, and patient medications and allergies were reviewed. The patient's tolerance of previous anesthesia was also reviewed. The risks and benefits of the procedure and the sedation options and risks were discussed with the patient. All questions were answered, and informed consent was obtained. Prior Anticoagulants: The patient has taken no previous anticoagulant or antiplatelet agents. ASA Grade Assessment: Per anesthesia. After reviewing the risks and benefits, the patient was deemed in satisfactory condition to undergo the procedure. After I obtained informed consent, the scope was passed under direct vision. Throughout the procedure, the patient's blood pressure, pulse, and oxygen saturations were monitored continuously. The Colonoscope was introduced through the anus and advanced to the cecum, identified by the appendiceal orifice, IC valve and transillumination. The colonoscopy was performed without difficulty. The patient tolerated the procedure well. The quality of the bowel preparation was good. Scope In: 7:56:52 AM Scope Withdrawal Time 0 hours 12 minutes 27 seconds Scope Out: 8:14:41 AM Total Procedure Duration Time 0 hours 17 minutes 49 seconds Findings: Hemorrhoids were found on perianal exam. Non-bleeding external and internal hemorrhoids were found. The hemorrhoids were Grade I (internal hemorrhoids that do not prolapse). Multiple small-mouthed diverticula were found in the sigmoid colon and ascending colon. A less than 5 mm polyp was found in the descending colon. The polyp was sessile. The polyp was removed with a cold biopsy forceps. Resection and retrieval were complete. The exam was otherwise without abnormality. Impression: - Hemorrhoids found on perianal exam. - Non-bleeding external and internal hemorrhoids. - Diverticulosis in the sigmoid colon and in the ascending colon. - One less than 5 mm polyp in the descending colon, removed with a cold biopsy forceps. Resected and retrieved. - The examination was otherwise normal. Recommendation: - Discharge patient to home. - High fiber diet. - Continue present medications. - Await pathology results. - Repeat colonoscopy in 5 years for surveillance based on pathology results. Procedure Code(s): --- Professional --- 02239, PT, Colonoscopy, flexible; with biopsy, single or multiple Diagnosis Code(s): --- Professional --- Z12.11, Encounter for screening for malignant neoplasm of colon K64.0, First degree hemorrhoids D12.4, Benign neoplasm of descending colon K57.30, Diverticulosis of large intestine without perforation or abscess without bleeding CPT copyright 2017 [employer]. All rights reserved. The codes documented in this report are preliminary and upon supervisor tubing review may be revised to meet current compliance requirements. MD Loretta Hobbs MD 07/29/2020 8:25:13 AM This report has been signed electronically. Number of Addenda: 0 Note Initiated On: 07/29/2020 7:27 AM
--- NOTE | 2020-07-29 08:25 | OP.CCLET_ITS ---
07/29/2020 Kanika Gordon MD [address] [place] [address] Re : Colonoscopy procedure for Shannan Munoz Dear Dr. Gordon This procedure was performed on Wednesday, July 29, 2020. My impressions and recommendations are as follows: Impressions : - Hemorrhoids found on perianal exam. - Non-bleeding external and internal hemorrhoids. - Diverticulosis in the sigmoid colon and in the ascending colon. - One less than 5 mm polyp in the descending colon, removed with a cold biopsy forceps. Resected and retrieved. - The examination was otherwise normal. Recommendations : - Discharge patient to home. - High fiber diet. - Continue present medications. - Await pathology results. - Repeat colonoscopy in 5 years for surveillance based on pathology results. My findings are described in the full procedure note, which is enclosed. If I can be of further assistance, please feel free to contact me at Doctor phone number(s): , Work: . Sincerely, MD Loretta Hobbs MD 07/29/2020 8:25:13 AM This report has been signed electronically.
== END 2020-07-29 09:00 | disposition home or self-care (01) ==
LOC: EN 06:53 → AC 06:53
PROVIDERS: PCP Internal Medicine; Referring Provider Internal Medicine; Visit Provider Surgery
PROC: 0DJD8ZZ Inspection of Lower Intestinal Tract, Via Natural or Artificial Opening Endoscopic (ICD-10-PCS; CPT 45378; principal; 2020-07-29 07:55)
DX: Z12.11 Encounter for screening for malignant neoplasm of colon (principal); D12.4 Benign neoplasm of descending colon; K57.30 Diverticulosis of large intestine without perforation or abscess without bleeding; K64.0 First degree hemorrhoids; K64.4 Residual hemorrhoidal skin tags; I10 Essential (primary) hypertension; K21.9 Gastro-esophageal reflux disease without esophagitis; E78.00 Pure hypercholesterolemia, unspecified; M19.90 Unspecified osteoarthritis, unspecified site; E06.9 Thyroiditis, unspecified; F32.9 Major depressive disorder, single episode, unspecified; Z78.0 Asymptomatic menopausal state; Z87.19 Personal history of other diseases of the digestive system; Z85.850 Personal history of malignant neoplasm of thyroid; Z79.899 Other long term (current) drug therapy; Z87.891 Personal history of nicotine dependence
CPT/HCPCS: 45380; 87426; 88305; C9803; J7120; J2405

== ENCOUNTER → 2020-08-03 09:01 | Outpatient (CLI) | payer MEDICAID, SELFPAY ==
[2020-08-03 08:36] VITALS: BMI 39.1
[2020-08-03 12:59] LABS: Thyroid Stim Hormone (TSH) 0.18 uIU/mL (0.358-3.74)
== END ==
PROVIDERS: PCP Internal Medicine; Visit Provider Internal Medicine
DX: E03.9 Hypothyroidism, unspecified (principal)
CPT/HCPCS: 36415; 84443

== ENCOUNTER → 2020-11-02 09:04 | Outpatient (CLI) | payer MEDICAID, SELFPAY ==
[2020-11-02 08:39] VITALS: BMI 39.1
[2020-11-02 12:26] LABS: Absolute Lymphocyte Count 1.45 X10^3/uL (0.83-4.51); Absolute Neutrophil Count 3.5 X10^3/uL (2.0-7.7); Basophil# 0.04 X10^3/uL; Basophil% 0.7 % (0-1); Eosinophil# 0.29 X10^3/uL; Eosinophils% 5.1 % (0-5); Hematocrit 38.9 % (37-47); Hemoglobin 12.8 g/dL (12.0-15.0); Lymphocyte # 1.45 X10^3/ul (0.83-4.51); Lymphocyte % 25.4 % (19-41); Mean Corp Hgb Conc 32.9 g/dL (32-36); Mean Corpuscular Hgb 27.9 pg (27.0-32.0); Mean Corpuscular Volume 84.9 fL (81-99); Mean Platelet Vol. 10.1 fl (6.2-12.0); Monocyte# 0.43 X10^3/uL; Monocyte% 7.5 % (0-10); NRBC Flagged by Analyzer 0 % (0-5); Neutrophil # 3.46 X10^3/uL (2.7-7.7); Neutrophil % 60.8 % (47-70); Platelet Count 246 K/mm3 (150-450); RBC Distribution Width CV 13.9 % (11.6-14.6); RBC Distribution Width SD 43.2 fl (35.1-43.9); Red Blood Count 4.58 M/mm3 (4.2-5.4); White Blood Count 5.7 K/mm3 (4.4-11.0)
[2020-11-02 13:01] LABS: ALB/GLOB Ratio 1.6 RATIO (0.9-2.4); AST(SGOT) 14 U/L (15-37); Alanine Aminotransfer ALT/SGPT 19 U/L (13-56); Albumin, Serum 4.2 g/dL (3.2-5.0); Alkaline Phosphatase 146 U/L (45-117); Anion Gap 11 (5-15); BUN 22 mg/dL (7-18); BUN/Creat Ratio 13.9 RATIO (10-20); Calcium,Total 9.3 mg/dL (8.5-10.1); Chloride 104 mmol/L (98-107); Cholesterol 215 mg/dL (200); Creatinine, Serum 1.58 mg/dL (0.55-1.02); EST Glomerular Filtration Rate 35 mL/min (>60); Est Glom Filt Rate - Afr Amer 43 mL/min (>60); Globulin 2.7 g/dL (2.2-4.2); Glucose 104 mg/dL (74-106); High Density Lipoprotein 49 mg/dL; Potassium 3.3 mmol/L (3.5-5.1); Protein, Total 6.9 g/dL (6.4-8.2); Sodium Level 140 mmol/L (136-145); Thyroid Stim Hormone (TSH) 0.24 uIU/mL (0.358-3.74); Triglycerides 191 mg/dL; Very Low Density Lipoprotein 38 mg/dL (5-40)
== END ==
PROVIDERS: PCP Internal Medicine; Referring Provider Internal Medicine; Visit Provider Internal Medicine
DX: I10 Essential (primary) hypertension (principal); R89.0 Abnormal level of enzymes in specimens from other organs, systems and tissues
CPT/HCPCS: 36415; 80053; 80061; 84443; 85025

== ENCOUNTER → 2020-12-07 13:25 | Outpatient (CLI) | payer MEDICAID, SELFPAY ==
[2020-11-02 08:39] VITALS: BMI 39.1
[2020-12-07 15:54] LABS: Anion Gap 8 (5-15); BUN 12 mg/dL (7-18); BUN/Creat Ratio 7.7 RATIO (10-20); Calcium,Total 9.9 mg/dL (8.5-10.1); Chloride 104 mmol/L (98-107); Creatinine, Serum 1.56 mg/dL (0.55-1.02); EST Glomerular Filtration Rate 36 mL/min (>60); Est Glom Filt Rate - Afr Amer 43 mL/min (>60); Glucose 101 mg/dL (74-106); Potassium 3.3 mmol/L (3.5-5.1); Sodium Level 137 mmol/L (136-145); Thyroid Stim Hormone (TSH) 2.64 uIU/mL (0.358-3.74)
== END ==
PROVIDERS: PCP Internal Medicine; Visit Provider Internal Medicine
DX: E89.0 Postprocedural hypothyroidism (principal); I10 Essential (primary) hypertension
CPT/HCPCS: 36415; 80048; 84443

== ENCOUNTER → 2021-03-16 12:39 | Outpatient (CLI) | payer MEDICAID, SELFPAY ==
--- NOTE | 2021-03-16 12:42 | US_ITS ---
STUDY: RENAL ULTRASOUND - COMPLETE REASON FOR EXAM: Female, 61 years old. CHRONIC KIDNEY DISEASE STAGE III. TECHNIQUE: Ultrasound evaluation of the kidneys was performed with real-time and static jackson-scale imaging. COMPARISON: None. FINDINGS: RIGHT KIDNEY: Normal location of the right kidney, which is normal in size. The right kidney measures 8.9 cm x 4.57 x 4.1 cm. There is a normal cortex of the right kidney. The renal cortex measures 0.9 cm. There is no right renal mass or cyst. There are no right renal calculi. There is no right hydronephrosis. DISTAL RIGHT URETER: There is non-visualization of the distal right ureter. There is no demonstrated right ureterovesical junction calculus. There is a visualized right ureteral jet. LEFT KIDNEY: Normal location of the left kidney, which is normal in size. The left kidney measures 9 cm x 4.5 cm x 4.4 cm. There is a normal cortex of the left kidney. The renal cortex measures 1.2 cm. There is a 2 cm x 2.3 cm x 1.9 cm cyst in the upper pole. There are no left renal calculi. There is no left hydronephrosis. DISTAL LEFT URETER: There is non-visualization of the distal left ureter. There is no demonstrated left ureterovesical junction calculus. There is a visualized left ureteral jet. BLADDER: The distended urinary bladder has a volume of 102.4 ml. There is a normal wall thickness of the distended urinary bladder. There is no demonstrated mass within the urinary bladder. There are no demonstrated bladder calculi. US/Kidney and Bladder IMPRESSION: Small left renal cyst. Electronically Signed: Zeeshan Boyer MD at 13:53 EDT , Service support ,
== END ==
PROVIDERS: PCP Internal Medicine; Referring Provider Internal Medicine Nephrology; Visit Provider Internal Medicine Nephrology
DX: N18.32 Chronic kidney disease, stage 3b (principal)
CPT/HCPCS: 76770

== ENCOUNTER → 2021-03-18 11:27 | Outpatient (CLI) | payer MEDICAID, SELFPAY ==
--- NOTE | 2021-03-18 11:30 | RAD_ITS ---
STUDY: X-RAY - RIGHT FOOT CLINICAL: Female, 61 years old. Right foot injury 3 weeks ago. Unable to move toes. TECHNIQUE: 4 view(s) of the foot. COMPARISON: None. FINDINGS: Osteopenia. Inferior calcaneal spur. Cancellus screw placement in the proximal fifth metatarsal. Mild arthrosis of the midfoot. Mild arthrosis of the MTP and IP joints with hammertoe deformities. The soft tissue structures are unremarkable. RAD/Foot min 3 Views IMPRESSION: Osteopenia with osteoarthritic changes. Inferior calcaneal spur. Postsurgical changes of the fifth metatarsal. No acute osseous abnormality. Electronically Signed: Jun Davis MD at 11:57 EDT , Service support ,
== END ==
PROVIDERS: PCP Internal Medicine; Referring Provider Podiatrist; Visit Provider Podiatrist
DX: S92.911A Unspecified fracture of right toe(s), initial encounter for closed fracture (principal)
CPT/HCPCS: 73630

== ENCOUNTER → 2021-04-19 09:20 | Outpatient (CLI) | payer MEDICAID, SELFPAY ==
[2021-04-19 12:30] LABS: Hematocrit 38.4 % (37-47); Hemoglobin 12.7 g/dL (12.0-15.0); Mean Corp Hgb Conc 33.1 g/dL (32-36); Mean Corpuscular Hgb 28.2 pg (27.0-32.0); Mean Corpuscular Volume 85.1 fL (81-99); Mean Platelet Vol. 9.9 fl (6.2-12.0); Platelet Count 228 K/mm3 (150-450); RBC Distribution Width CV 14.6 % (11.6-14.6); RBC Distribution Width SD 46.1 fl (35.1-43.9); Red Blood Count 4.51 M/mm3 (4.2-5.4); White Blood Count 6.2 K/mm3 (4.4-11.0)
[2021-04-19 12:36] LABS: BUN 18 mg/dL (7-18); BUN/Creat Ratio 12.7 RATIO (10-20); Calcium,Total 9.7 mg/dL (8.5-10.1); Chloride 110 mmol/L (98-107); Creatinine, Serum 1.42 mg/dL (0.55-1.02); EST Glomerular Filtration Rate 40 mL/min (>60); Est Glom Filt Rate - Afr Amer 48 mL/min (>60); Glucose 98 mg/dL (74-106); Phosphorus 3.3 mg/dL (2.5-4.9); Sodium Level 140 mmol/L (136-145)
[2021-04-19 12:44] LABS: Vitamin D,25 Hydroxy 48.7 ng/mL
[2021-04-19 13:04] LABS: Microalbumin,Random Urine 11.7 mg/L (NO RANGE EST.); Microalbumin:Creatinine Ratio 4.3 mg/g CRE (<30 mg/g CRE)
[2021-04-19 13:08] LABS: PTHIN 60.7 pg/mL (18.4-80.1)
== END ==
PROVIDERS: PCP Internal Medicine; Referring Provider Internal Medicine Nephrology; Visit Provider Internal Medicine Nephrology
DX: N18.32 Chronic kidney disease, stage 3b (principal)
CPT/HCPCS: 36415; 80069; 82043; 82306; 82570; 83735; 83970; 85027

== ENCOUNTER 2021-07-05 07:55 | Outpatient (CLI) | payer MEDICAID, SELFPAY ==
--- NOTE | 2021-07-05 08:34 | BI_ITS ---
MAMMOGRAPHY - BILATERAL SCREENING REASON FOR EXAM: Female, 61 years old. Routine annual screening examination. PERTINENT HISTORY: Mother with breast cancer. Remote right excisional breast biopsy. TECHNIQUE: Digital bilateral breast chapin (3D mammographic acquisition) in the CC and MLO projections. 2-D mediolateral oblique (MLO) and craniocaudad (CC) views of both breasts were obtained. CAD: Full Field Digital Mammography with Computer Added Detection was performed. COMPARISON: Comparison is made with prior study dated 06/03/2020. FINDINGS: Breast Composition: The breasts are heterogeneously dense, which may obscure small masses. There are no dominant masses or suspicious calcifications. Stable benign-appearing bilateral axillary lymph nodes. No other significant abnormalities are identified. There has been no significant change since the prior study. BI/SCRN MAMM (CAD)W/CHAPIN BILAT IMPRESSION: Stable bilateral screening mammogram. Yearly follow-up mammogram recommended. (A) ASSESSMENT CATEGORY: BIRADS Category 2: Benign. A letter regarding these results will be sent to the patient by the facility within 30 days. Approximately 10% of breast cancers are not detected by mammography. A normal mammogram should not delay biopsy of a clinically suspicious abnormality. [id number] Electronically Signed: Zeeshan Boyer MD at 10:17 EST ,
== END 2021-07-05 23:59 | disposition home or self-care (01) ==
LOC: OPBI 08:33
PROVIDERS: PCP Internal Medicine; Referring Provider Internal Medicine; Visit Provider Internal Medicine
DX: Z12.31 Encounter for screening mammogram for malignant neoplasm of breast (principal); Z80.3 Family history of malignant neoplasm of breast
CPT/HCPCS: 77063; 77067

== ENCOUNTER → 2021-10-19 | Outpatient (CLI) | payer MEDICAID, SELFPAY ==
[2021-10-19 16:02] LABS: Anion Gap 8 (5-15); BUN 21 mg/dL (7-18); BUN/Creat Ratio 13.4 RATIO (10-20); Calcium,Total 9.6 mg/dL (8.5-10.1); Chloride 112 mmol/L (98-107); Cholesterol 247 mg/dL (200); Creatinine, Serum 1.57 mg/dL (0.55-1.02); EST Glomerular Filtration Rate 36 mL/min (>60); Est Glom Filt Rate - Afr Amer 43 mL/min (>60); Glucose 115 mg/dL (74-106); High Density Lipoprotein 56 mg/dL; Sodium Level 139 mmol/L (136-145); Triglycerides 139 mg/dL; Very Low Density Lipoprotein 28 mg/dL (5-40)
[2021-10-19 16:58] LABS: Protein, Urine (Random) 52.5 mg/dL (<11.9); Protein:Creat Ratio 143 mg/g CRE (0-200)
== END | disposition home or self-care (01) ==
LOC: BIMLAB 14:17
PROVIDERS: PCP Internal Medicine; Visit Provider Internal Medicine Nephrology
DX: I12.9 Hypertensive chronic kidney disease with stage 1 through stage 4 chronic kidney disease, or unspecified chronic kidney disease (principal); N18.32 Chronic kidney disease, stage 3b; E89.0 Postprocedural hypothyroidism
CPT/HCPCS: 36415; 80048; 80061; 82570; 84156; 84443

== ENCOUNTER → 2021-11-29 | Outpatient (CLI) | payer MEDICARE, MEDICAID, SELFPAY ==
[2021-11-29 15:46] LABS: Thyroid Stim Hormone (TSH) 0.38 uIU/mL (0.358-3.74)
== END | disposition home or self-care (01) ==
LOC: BIMLAB 14:21
PROVIDERS: PCP Internal Medicine; Referring Provider Internal Medicine; Visit Provider Internal Medicine
DX: E89.0 Postprocedural hypothyroidism (principal)
CPT/HCPCS: 36415; 84443

== ENCOUNTER 2021-12-15 10:09 | Outpatient (CLI) | payer MEDICARE, MEDICAID, SELFPAY | END 2021-12-15 23:59 | disposition home or self-care (01) | LOC: LABSPEC 10:11 | PROVIDERS: PCP Internal Medicine; Referring Provider Physician Assistant; Visit Provider Physician Assistant | DX: U07.1 COVID-19 (principal) | CPT/HCPCS: 87635; U0003; U0005 ==

== ENCOUNTER → 2022-03-14 | Outpatient (CLI) | payer MEDICARE, MEDICAID, SELFPAY ==
[2022-03-14 12:26] LABS: Absolute Lymphocyte Count 0.94 X10^3/uL (0.83-4.51); Absolute Neutrophil Count 2.7 X10^3/uL (2.0-7.7); Basophil# 0.03 X10^3/uL; Basophil% 0.7 % (0-1); Eosinophil# 0.25 X10^3/uL; Eosinophils% 5.7 % (0-5); Hematocrit 35.8 % (37-47); Hemoglobin 11.8 g/dL (12.0-15.0); Lymphocyte # 0.94 X10^3/ul (0.83-4.51); Lymphocyte % 21.5 % (19-41); Mean Corpuscular Hgb 28.3 pg (27.0-32.0); Mean Corpuscular Volume 85.9 fL (81-99); Monocyte# 0.41 X10^3/uL; Monocyte% 9.4 % (0-10); NRBC Flagged by Analyzer 0 % (0-5); Neutrophil # 2.74 X10^3/uL (2.7-7.7); Neutrophil % 62.5 % (47-70); Platelet Count 204 K/mm3 (150-450); RBC Distribution Width CV 14.4 % (11.6-14.6); RBC Distribution Width SD 45.6 fl (35.1-43.9); Red Blood Count 4.17 M/mm3 (4.2-5.4); White Blood Count 4.4 K/mm3 (4.4-11.0)
[2022-03-14 13:31] LABS: ALB/GLOB Ratio 1.4 RATIO (0.9-2.4); AST(SGOT) 19 U/L (15-37); Alanine Aminotransfer ALT/SGPT 25 U/L (13-56); Alkaline Phosphatase 131 U/L (45-117); Anion Gap 9 (5-15); BUN 15 mg/dL (7-18); BUN/Creat Ratio 11.1 RATIO (10-20); Calcium,Total 9.7 mg/dL (8.5-10.1); Chloride 112 mmol/L (98-107); Creatinine, Serum 1.35 mg/dL (0.55-1.02); EST Glomerular Filtration Rate 42 mL/min (>60); Est Glom Filt Rate - Afr Amer 51 mL/min (>60); Globulin 2.9 g/dL (2.2-4.2); Glucose 96 mg/dL (74-106); Potassium 4.3 mmol/L (3.5-5.1); Protein, Total 6.9 g/dL (6.4-8.2); Sodium Level 139 mmol/L (136-145)
== END | disposition home or self-care (01) ==
LOC: BIMLAB 10:12
PROVIDERS: PCP Internal Medicine; Referring Provider Internal Medicine; Visit Provider Internal Medicine
DX: I10 Essential (primary) hypertension (principal)
CPT/HCPCS: 36415; 80053; 85025

== ENCOUNTER 2022-04-20 13:31 | Outpatient (CLI) | payer MEDICARE, MEDICAID, SELFPAY ==
[2022-04-20 15:35] LABS: Anion Gap 7 (5-15); BUN 15 mg/dL (7-18); BUN/Creat Ratio 10.3 RATIO (10-20); Calcium,Total 9.4 mg/dL (8.5-10.1); Chloride 110 mmol/L (98-107); Creatinine, Serum 1.46 mg/dL (0.55-1.02); EST Glomerular Filtration Rate 39 mL/min (>60); Est Glom Filt Rate - Afr Amer 47 mL/min (>60); Glucose 101 mg/dL (74-106); Potassium 4.2 mmol/L (3.5-5.1); Sodium Level 141 mmol/L (136-145)
[2022-04-20 15:36] LABS: Protein, Urine (Random) 17.1 mg/dL (<11.9); Protein:Creat Ratio 79 mg/g CRE (0-200)
== END 2022-04-20 23:59 | disposition home or self-care (01) ==
PROVIDERS: PCP Internal Medicine; Referring Provider Internal Medicine Nephrology; Visit Provider Internal Medicine Nephrology
DX: N18.32 Chronic kidney disease, stage 3b (principal)
CPT/HCPCS: 36415; 80048; 82570; 84156

== ENCOUNTER → 2022-06-09 | Outpatient (CLI) | payer MEDICARE, MEDICAID, SELFPAY ==
[2022-06-09 16:41] LABS: Anion Gap 8 (5-15); BUN 13 mg/dL (7-18); BUN/Creat Ratio 9.3 RATIO (10-20); Calcium,Total 9.5 mg/dL (8.5-10.1); Chloride 110 mmol/L (98-107); EST Glomerular Filtration Rate 40 mL/min (>60); Est Glom Filt Rate - Afr Amer 49 mL/min (>60); Glucose 92 mg/dL (74-106); Sodium Level 142 mmol/L (136-145)
== END | disposition home or self-care (01) ==
PROVIDERS: PCP Internal Medicine; Visit Provider Internal Medicine
DX: I10 Essential (primary) hypertension (principal)
CPT/HCPCS: 36415; 80048

== ENCOUNTER → 2022-09-07 | Outpatient (CLI) | payer MEDICARE, MEDICAID, SELFPAY ==
[2022-09-07 17:08] LABS: ALB/GLOB Ratio 1.6 RATIO (0.9-2.4); AST(SGOT) 20 U/L (15-37); Alanine Aminotransfer ALT/SGPT 27 U/L (13-56); Albumin, Serum 4.1 g/dL (3.2-5.0); Alkaline Phosphatase 136 U/L (45-117); Anion Gap 4 (5-15); BUN 18 mg/dL (7-18); BUN/Creat Ratio 13.1 RATIO (10-20); Calcium,Total 9.5 mg/dL (8.5-10.1); Chloride 110 mmol/L (98-107); Cholesterol 200 mg/dL (200); Creatinine, Serum 1.37 mg/dL (0.55-1.02); EST Glomerular Filtration Rate 41 mL/min (>60); Est Glom Filt Rate - Afr Amer 50 mL/min (>60); Globulin 2.6 g/dL (2.2-4.2); Glucose 88 mg/dL (74-106); High Density Lipoprotein 60 mg/dL; Potassium 4.5 mmol/L (3.5-5.1); Protein, Total 6.7 g/dL (6.4-8.2); Sodium Level 138 mmol/L (136-145); Thyroid Stim Hormone (TSH) 0.67 uIU/mL (0.358-3.74); Triglycerides 136 mg/dL; Very Low Density Lipoprotein 27 mg/dL (5-40)
== END | disposition home or self-care (01) ==
LOC: BIMLAB 14:57
PROVIDERS: PCP Internal Medicine; Referring Provider Internal Medicine; Visit Provider Internal Medicine
DX: I10 Essential (primary) hypertension (principal); E78.5 Hyperlipidemia, unspecified
CPT/HCPCS: 36415; 80053; 80061; 84443

== ENCOUNTER → 2022-12-06 | Outpatient (CLI) | payer MEDICARE, MEDICAID, SELFPAY ==
--- NOTE | 2022-12-06 13:38 | ECHOD_ITS ---
Reason For Study: MURMUR Procedure This was a 2D Doppler, Color Flow transthoracic echocardiogram. Exam performed in department. Left Ventricle Normal LV size. Left ventricular systolic function is normal. The estimated ejection fraction is 60 %. Normal diastology for age. No regional wall motion abnormalities noted. Right Ventricle Normal RV size. Normal systolic function. Atria The left and right atria are normal. Mitral Valve The mitral valve is structurally normal. No prolapse or stenosis seen. Trivial mitral valve insufficiency. Tricuspid Valve Normal tricuspid valve. Trivial tricuspid valve insufficiency. Right ventricular systolic pressure estimated to be 27 mmHg. Aortic Valve Mild focal aortic valve calcification. Trisinus/trileaflet aortic valve. There is no aortic stenosis. No aortic valve insufficiency. Pulmonic Valve Normal pulmonic valve. Great Vessels Normal aortic root. Pericardium/Pleural Trivial pericardial effusion. There are no echocardiographic indications of cardiac tamponade. MMode/2D Measurements & Calculations LVIDd: 5.3 cm IVSd: 1.0 cm Ao root diam: 3.0 cm LVIDs: 4.0 cm LVPWd: 0.93 cm RVDd: 3.1 cm FS: 24.8 % LAV(MOD-bp): 52.5 ml LVAd ap4: 28.9 cm2 SV(MOD-sp4): 54.9 ml LAV(MOD-bp) Indexed: 26.2 ml/m2 LVLd ap4: 7.3 cm LAV(MOD-sp2): 42.9 ml EDV(MOD-sp4): 91.7 ml LAV(MOD-sp4): 61.1 ml EDV(sp4-el): 97.4 ml LVAs ap4: 16.8 cm2 LVLs ap4: 6.3 cm ESV(MOD-sp4): 36.8 ml ESV(sp4-el): 38.2 ml EF(MOD-sp4): 59.9 % EF(sp4-el): 60.8 % SV(sp4-el): 59.2 ml LA A4 area: 20.0 cm2 LA dimension(2D): 4.0 cm RA A4 area: 15.3 cm2 TAPSE: 2.4 cm Time Measurements MV dec time: 0.16 sec Doppler Measurements & Calculations MV E max bryon: 93.8 cm/sec Lat Peak E' Bryon: 4.7 cm/sec Med Peak E' Bryon: 5.4 cm/sec MV A max bryon: 109.4 cm/sec E/E' lat: 19.8 E/E' med: 17.3 MV E/A: 0.86 MV V2 max: 108.5 cm/sec Ao V2 max: 167.4 cm/sec MV max P.7 mmHg MV dec slope: 596.1 cm/sec2 Ao max P.2 mmHg MV V2 mean: 67.8 cm/sec Ao V2 mean: 122.2 cm/sec MV mean P.0 mmHg Ao mean P.7 mmHg MV V2 VTI: 33.7 cm Ao V2 VTI: 41.1 cm AV (velocity ratio): 0.67 LV V1 max: 121.9 cm/sec PA V2 max: 116.8 cm/sec TR max bryon: 246.4 cm/sec LV V1 max P.9 mmHg PA V2 mean: 73.4 cm/sec TR max P.3 mmHg LV V1 mean P.3 mmHg LV V1 mean: 85.4 cm/sec LV V1 VTI: 27.7 cm ECHO/Echo Complete Interpretation Summary The estimated ejection fraction is 60 %. Trivial pericardial effusion. Ordering Physician: Kanika Gordon Referring Physician: Kanika Gordon Performed By: Sarah Guillen RCS
== END | disposition home or self-care (01) ==
LOC: CVS 13:37
PROVIDERS: PCP Internal Medicine; Referring Provider Internal Medicine; Visit Provider Internal Medicine
DX: R01.1 Cardiac murmur, unspecified (principal)
CPT/HCPCS: 93306

== ENCOUNTER 2022-12-27 12:18 | Day surgery (SDC) | payer MEDICARE, SELFPAY ==
[2022-12-27] VITALS (7 sets, daily range): BP systolic 124–136; BP diastolic 60–83; PULSE 64–74; RESP 16–18; TEMP 36.3–37; O2SAT 95–100; BMI 38.6
--- NOTE | 2022-12-27 14:06 | HP.PCM_ITS ---
History and Physical Date of Admission: 12/27/22 ELIZABETH MERRITT, is a 62 F who presents to the office today for Prior workup: ? Colonoscopy 07.29.20, screening hemorrhoids; diverticulosis; one small TA polyp PCP OV 09.07.22 for chronic condition f/u of HTN, anxiety/depression (mostly stable) and GERD managed by omeprazole but has ongoing symptoms of burping, hiccups and hoarseness. Start Protonix, improved. *BGI established 8.09.11 continues to be doing well with reflux since starting PPI but continues. Notes her diet is very poor; of 32 years passed (cirrhosis) a year ago and he did most of the cooking and she has found this adjustment difficult. ROS Const Constitutional: No body ache, chills, excessive sweating, fatigue, fever(s), frequent falls, headache(s), snoring, weakness, sleep problems or change in appetite Eyes Eyes: No blurry vision, change in vision, vision loss, dry eyes, floaters, eye pain or Light sensitivity ENT ENT: No abnormal hearing, ear or mastoid pain, tinnitus, nosebleed/epistaxis, nasal congestion, headache(s), neck pain or sore throat Resp Respiratory: No cough, excessive phlegm production, pain on inspiration, shortness of breath, snoring or wheezing Cardio Cardiology: No chest pain at rest, chest pain with exertion, excessive sweating, shortness of breath, dyspnea on exertion, lightheadedness, orthopnea or palpitations Gastro GI: No abdominal pain, change in bowel habits, constipation, cramping, diarrhea, Vomiting blood/hematemesis or vomiting Genitourinary-Female: No burning urination, painful urination, urinary incontinence or blood in urine Musc Musculoskeletal: No abnormal gait, joint pain, back pain, limited range of motion, neck pain, numbness or tingling Skin Skin: No dry skin, redness, lesions, itchy eyes, rash or wounds Breast Breast: No change in breast shape, breast lump, breast pain, breast skin changes, breast swelling or nipple discharge Neuro Neurology: No abnormal gait, abnormal hearing, weakness, frequent falls, headache(s), numbness or tingling Psych Psychiatric: No anxiety, No change in appetite, No depression and No Thoughts of harming yourself/Others Endo Endocrine: No excessive sweating, fatigue, flushing, heat intolerance, increased thirst/drinking or increased hunger Aller/Imm Allergy/Immunologic: No itchy eyes, seasonal allergy symptoms, hives or wheezing Derik/Lymp Hematologic/Lymphatic: No easy bleeding, easy bruising or enlarged lymph nodes Exam Const General: cooperative, comfortable and no acute distress Orientation: alert, awake and oriented x3 HENMT Head: normal to inspection, normocephalic and atraumatic Ears: hearing grossly normal bilaterally Neck Neck: normal visual inspection, full ROM, no lymphadenopathy and supple Neck mass: No Resp Effort & Inspection: normal respiratory effort and able to speak in complete sentences Auscultation: Bilateral: Clear to Auscultation Cardio Rate: regular rate Rhythm: regular rhythm Heart Sounds: S1 normal, S2 normal and murmur GI Palpation: soft (Nontender, no palpable organomegaly.) Neuro General: patient alert, patient awake, patient oriented x3, moves all extremities and CN's II-XI intact bilaterally Extrem General: no clubbing, cyanosis or edema Psych Appearance: grossly normal Mental Status: mental status grossly normal Mood: congruent mood Affect: normal affect Quality Reporting Tobacco Screening ([facility]) Smoking Status: Former smoker Assessment and Plan Assessment and Plan (1) GERD (gastroesophageal reflux disease): Status: Chronic Qualifiers: Esophagitis presence: esophagitis presence not specified Qualified Code(s): K21.9 - Gastro-esophageal reflux disease without esophagitis Plan: She has gastroesophageal reflux disease that has responded well to medical therapy. She does have a long history of gastroesophageal reflux disease. Due to the fact that she does get some intermittent dysphagia and her age I think she would benefit from an upper endoscopy to evaluate her upper GI tract. We will continue medical therapy and make further recommendations after she undergoes an upper endoscopy. Orders: Orders EGD 12/27/22 K21.9 - Gastro-esophageal reflux disease without esophagitis I have examined the patient and the H&P has been reviewed. There are no clinical changes since date of exam.
[2022-12-27] MEDS: Lactated Ringers 1,000 ML 15 ML IV (14:51)
--- NOTE | 2022-12-27 15:30 | IMM_PTH ---
PATIENT: ELIZABETH MERRITT LOC: EN U#:[id number] AGE/SX: 62/F ROOM: RE12/27/[address]: Dr. Sanford Hernandes DO : 1960 BED: DIS: 12/27/2022 SPEC #: [id number] RECD: 12/28/22 14:29 STATUS: STEPHANIE REEdna #: [id number] IDALMIS: 12/27/22 15:[address]: Sanford Hernandes DEPT: IMMUNOHISTOCHEMISTRY RECD BY: Ashley Lynch ENTERED: 12/28/22 14:29 SP TYPE: IMMUNO OTHR DR: Dr. Kanika Gordon MD Tissues: B - Stomach, NOS Procedures: H Pylori (initial) PHYSICIAN & INSTITUTION [place] [address] SPECIMEN INFORMATION: Tissue Source: B - Gastric antrum Clinical Info: GERD Specimen Number: [id number] CPT code: 29532 METHODOLOGY: Deparaffinized sections of prefer/formalin-fixed tissue or PAP/DQ stained slides are incubated with monoclonal/polyclonal antibodies/oligonucleotide probes. Localization is made via biotin free immunoperoxidase method. Appropriate controls are performed and reacted as expected. Results on target cell population are indicated in the following table: RESULTS: ANTIBODY / CLONE RESULT Block B H Pylori (polyclonal) negative These tests were developed and their performance characteristics determined by [facility]. They may not have been cleared or approved by the U.S. Food and Drug Administration. The FDA has determined that such clearance or approval is not necessary. The above immunohistochemical/dualISH markers are ordered and reviewed by the Pathologist. INTERPRETATION: B. Gastric antrum, biopsy: Negative for Helicobacter pylori organisms. AM:rusty 12/29/2022
--- NOTE | 2022-12-27 15:30 | EGD_PTH ---
PATIENT: ELIZABETH MERRITT LOC: EN U#:[id number] AGE/SX: 62/F ROOM: RE12/27/[address]: Dr. Sanford Hernandes DO : 1960 BED: DIS: 12/27/2022 SPEC #: [id number] RECD: 12/27/22 16:20 STATUS: STEPHANIE ANGEL LUIS #: [id number] IDALMIS: 12/27/22 15:[address]: Sanford Hernandes DEPT: SURGICAL PATHOLOGY RECD BY: Rosa Bower ENTERED: 12/28/22 07:24 SP TYPE: EGD BIOPSY JOHN DR: Dr. Kanika Gordon MD Tissues: A - Esophagus, NOS B - Gastric mucous membrane Procedures: Special Stain Group II Surgery Specimen Level IV Alcian Blue/PAS (control) HEADER OPERATION: EGD, biopsy PRE-OP DIAGNOSIS: GERD TISSUE SUBMITTED: A - Distal esophagus biopsy, B - Gastric antrum for H. pylori and path MICROSCOPIC DIAGNOSIS A. Distal esophagus, biopsy: Gastroesophageal junctional mucosa with mild chronic inflammation. No evidence of goblet cell metaplasia. See comment. B. Gastric antrum, biopsy: Chronic gastritis. See comment. AM:rusyt 12/29/2022 COMMENT A. Alcian blue/PAS stain with matched control supports the above diagnosis. B. The results of immunohistochemistry for Helicobacter pylori will be reported separately ([id number]). MICROSCOPIC DESCRIPTION Slides are reviewed. GROSS DESCRIPTION A - Received in fixative is one container labeled with the patient's name and designated distal esophagus. The specimen consists of two irregular fragments of light faulkner soft tissue that in aggregate measure 0.8 x 0.4 x 0.1 cm. The specimen is totally submitted in one cassette. B - Received in fixative is one container labeled with the patient's name and designated gastric antrum. The specimen consists of two irregular fragments of light faulkner soft tissue that in aggregate measure 0.8 x 0.6 x 0.1 cm. The specimen is totally submitted in one cassette. / SJ:rusty 12/28/2022 TC:3 CPT: 71283 x2, 93495
--- NOTE | 2022-12-27 16:10 | OP.EGD_ITS ---
Patient Name: Shannan Munoz Procedure Date: 12/27/2022 3:44 PM Date of : 1960 Age: 62 Procedure: Upper GI endoscopy Indications: Heartburn, Suspected esophageal reflux Providers: Sanford Hernandes DO Medicines: Monitored Anesthesia Care Patient Profile: This is a 62 year old female. Refer to note in patient chart for documentation of history and physical. Patient has symptoms of chronic heartburn. Complications: No immediate complications. Procedure: Pre-Anesthesia Assessment: - Prior to the procedure, a History and Physical was performed, and patient medications and allergies were reviewed. The patient is competent. The risks and benefits of the procedure and the sedation options and risks were discussed with the patient. All questions were answered and informed consent was obtained. Patient identification and proposed procedure were verified by the physician in the pre-procedure area. Mental Status Examination: alert and oriented. Airway Examination: normal oropharyngeal airway and neck mobility. Respiratory Examination: clear to auscultation. CV Examination: normal. Prophylactic Antibiotics: The patient does not require prophylactic antibiotics. Prior Anticoagulants: The patient has taken no previous anticoagulant or antiplatelet agents. After reviewing the risks and benefits, the patient was deemed in satisfactory condition to undergo the procedure. The anesthesia plan was to use monitored anesthesia care (MAC). Immediately prior to administration of medications, the patient was re-assessed for adequacy to receive sedatives. The heart rate, respiratory rate, oxygen saturations, blood pressure, adequacy of pulmonary ventilation, and response to care were monitored throughout the procedure. The physical status of the patient was re-assessed after the procedure. After obtaining informed consent, the endoscope was passed under direct vision. Throughout the procedure, the patient's blood pressure, pulse, and oxygen saturations were monitored continuously. The gastroscope was introduced through the mouth, and advanced to the second part of duodenum. The upper GI endoscopy was accomplished without difficulty. The patient tolerated the procedure well. Scope In: 3:56:31 PM Scope Out: 4:01:11 PM Total Procedure Duration Time 0 hours 4 minutes 40 seconds Findings: There were esophageal mucosal changes suggestive of short-segment Meyer's esophagus present in the lower third of the esophagus. The maximum longitudinal extent of these mucosal changes was 3 cm in length. Mucosa was biopsied with a cold forceps for histology in a targeted manner at intervals of 1 cm in the lower third of the esophagus. One specimen bottle was sent to pathology. Verification of patient identification for the specimen was done. Estimated blood loss was minimal. A small hiatal hernia was present. Moderate gastric antral vascular ectasia with bleeding was present in the gastric antrum. Biopsies were taken with a cold forceps for histology. Verification of patient identification for the specimen was done. Estimated blood loss was minimal. The second portion of the duodenum was normal. Biopsies were taken with a cold forceps for histology. Verification of patient identification for the specimen was done. Estimated blood loss was minimal. 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 Biopsied. - Small hiatal hernia. - Gastric antral vascular ectasia with bleeding. Biopsied. This is possibly secondary to underlying liver disease - Recommendation: - Discharge patient to home. - Resume previous diet. - Continue present medications. - Await pathology results. - Blood work for chronic liver disease, right upper quadrant ultrasound and FibroScan. Procedure Code(s): --- Professional --- 18524, Esophagogastroduodenoscopy, flexible, transoral; with biopsy, single or multiple CPT copyright 2017 [employer]. All rights reserved. The codes documented in this report are preliminary and upon auditing coder review may be revised to meet current compliance requirements. Sanford Hernandes DO 12/27/2022 4:10:37 PM This report has been signed electronically. Number of Addenda: 0 Note Initiated On: 12/27/2022 3:44 PM
--- NOTE | 2022-12-27 16:11 | OP.CCLET_ITS ---
12/27/2022 Kanika Gordon MD [address] [place] [address] [place] [address] Re : Upper GI endoscopy procedure for Shannan Munoz Dear Dr. Gordon This procedure was performed on Tuesday, December 27, 2022. 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 Biopsied. - Small hiatal hernia. - Gastric antral vascular ectasia with bleeding. Biopsied. This is possibly secondary to underlying liver disease - Recommendations : - Discharge patient to home. - Resume previous diet. - Continue present medications. - Await pathology results. - Blood work for chronic liver disease, right upper quadrant ultrasound and FibroScan. My findings are described in the full procedure note, which is enclosed. If I can be of further assistance, please feel free to contact me at . Sincerely, Sanford Friend, 12/27/2022 4:10:37 PM This report has been signed electronically.
== END 2022-12-27 17:02 | disposition home or self-care (01) ==
LOC: EN 12:18 → AC 13:45
PROVIDERS: PCP Internal Medicine; Referring Provider Internal Medicine; Visit Provider Internal Medicine Gastroenterology
PROC: 0DJ08ZZ Inspection of Upper Intestinal Tract, Via Natural or Artificial Opening Endoscopic (ICD-10-PCS; CPT 43235; principal; 2022-12-27 15:25)
DX: K44.9 Diaphragmatic hernia without obstruction or gangrene (principal); Z87.891 Personal history of nicotine dependence; K21.9 Gastro-esophageal reflux disease without esophagitis; K31.819 Angiodysplasia of stomach and duodenum without bleeding; I10 Essential (primary) hypertension; E03.9 Hypothyroidism, unspecified; K29.50 Unspecified chronic gastritis without bleeding
CPT/HCPCS: 43239; 36415; 80048; 84443; 85025; 88305; 88313; 88342; J2405

== ENCOUNTER → 2022-12-27 | Outpatient (CLI) | payer MEDICARE, MEDICAID, SELFPAY ==
--- NOTE | 2022-12-27 11:58 | BI_ITS ---
MAMMOGRAPHY - BILATERAL SCREENING REASON FOR EXAM: Female, 62 years old. Routine annual screening examination. PERTINENT HISTORY: Mother with breast cancer. History of prior right excisional breast biopsy. TECHNIQUE: Digital bilateral breast chapin (3D mammographic acquisition) in the CC and MLO projections. 2-D mediolateral oblique (MLO) and craniocaudad (CC) views of both breasts were obtained. CAD: Full Field Digital Mammography with Computer Added Detection was performed. COMPARISON: Comparison is made with prior study of July 05, 2021 and June 03, 2020. FINDINGS: Breast Composition: The breasts are heterogeneously dense, which may obscure small masses. There are no dominant masses or suspicious calcifications. A tissue clip marker is once again seen in the upper lateral aspect of the right breast. Stable benign appearing bilateral axillary lymph nodes. No other significant abnormalities are identified. There has been no significant change since the prior study. BI/SCRN MAMM (CAD)W/CHAPIN BILAT IMPRESSION: Stable bilateral screening mammogram. Yearly follow-up mammogram recommended. (A) ASSESSMENT CATEGORY: BIRADS Category 2: Benign. A letter regarding these results will be sent to the patient by the facility within 30 days. Approximately 10% of breast cancers are not detected by mammography. A normal mammogram should not delay biopsy of a clinically suspicious abnormality. [id number] Electronically Signed: Zeeshan Boyer MD at 13:28 EDT ,
== END | disposition home or self-care (01) ==
LOC: OPBI 11:37
PROVIDERS: PCP Internal Medicine; Referring Provider Internal Medicine; Visit Provider Internal Medicine
DX: Z12.31 Encounter for screening mammogram for malignant neoplasm of breast (principal)
CPT/HCPCS: 77063; 77067

== ENCOUNTER → 2022-12-27 | Outpatient (CLI) | payer MEDICARE, MEDICAID, SELFPAY ==
[2022-12-27 17:32] LABS: Absolute Lymphocyte Count 1.13 X10^3/uL (0.83-4.51); Absolute Neutrophil Count 3.4 X10^3/uL (2.0-7.7); Basophil# 0.03 X10^3/uL; Basophil% 0.6 % (0-1); Eosinophil# 0.18 X10^3/uL; Eosinophils% 3.5 % (0-5); Hematocrit 38.7 % (37-47); Hemoglobin 12.3 g/dL (12.0-15.0); Lymphocyte # 1.13 X10^3/ul (0.83-4.51); Lymphocyte % 22.1 % (19-41); Mean Corp Hgb Conc 31.8 g/dL (32-36); Mean Corpuscular Hgb 27.6 pg (27.0-32.0); Mean Platelet Vol. 9.1 fl (6.2-12.0); Monocyte# 0.39 X10^3/uL; Monocyte% 7.6 % (0-10); NRBC Flagged by Analyzer 0 % (0-5); Neutrophil # 3.37 X10^3/uL (2.7-7.7); Neutrophil % 65.8 % (47-70); Platelet Count 192 K/mm3 (150-450); RBC Distribution Width CV 13.7 % (11.6-14.6); RBC Distribution Width SD 43.8 fl (35.1-43.9); Red Blood Count 4.45 M/mm3 (4.2-5.4); White Blood Count 5.1 K/mm3 (4.4-11.0)
[2022-12-27 18:41] LABS: Anion Gap 5 (5-15); BUN 18 mg/dL (7-18); BUN/Creat Ratio 13.6 RATIO (10-20); Calcium,Total 9.5 mg/dL (8.5-10.1); Chloride 110 mmol/L (98-107); Creatinine, Serum 1.32 mg/dL (0.55-1.02); EST Glomerular Filtration Rate 43 mL/min (>60); Est Glom Filt Rate - Afr Amer 52 mL/min (>60); Glucose 96 mg/dL (74-106); Sodium Level 142 mmol/L (136-145); Thyroid Stim Hormone (TSH) 0.08 uIU/mL (0.358-3.74)
== END | disposition home or self-care (01) ==
LOC: LAB 17:07
PROVIDERS: PCP Internal Medicine; Referring Provider Internal Medicine Gastroenterology; Visit Provider Internal Medicine Gastroenterology
DX: I10 Essential (primary) hypertension (principal); E03.9 Hypothyroidism, unspecified
CPT/HCPCS: 36415; 80048; 84443; 85025

== ENCOUNTER → 2023-01-09 | Outpatient (CLI) | payer MEDICARE, MEDICAID, SELFPAY ==
[2023-01-09 15:14] LABS: Platelet Count 219 K/mm3 (150-450); RET-HE 31.4 pg (30-35); Reticulocyte Count 1.42 % (0.5-1.5)
[2023-01-09 16:56] LABS: Cholesterol 183 mg/dL (200); Ferritin 22 ng/mL (8-252); High Density Lipoprotein 57 mg/dL; Iron 73 ug/dL (50-170); Iron Binding Capacity,Total 369 ug/dL (250-450); PERCENT IRON SATURATION 19.8 % (15.0-55.0); Triglycerides 180 mg/dL; Very Low Density Lipoprotein 36 mg/dL (5-40)
[2023-01-11 15:08] LABS: Albumin 4.2 g/dL (2.9-4.4); Alpha-1-Globulins 0.2 g/dL (0.0-0.4); Alpha-2-Globulins 0.6 g/dL (0.4-1.0); Anti-Centromere B Ab <0.2 AI (0.0-0.9); Anti-Chromatin <0.2 AI (0.0-0.9); Anti-Jo <0.2 AI (0.0-0.9); Anti-Mitochondrial AB <20.0 Units (0.0-20.0); Anti-Scleroderma-70 AB <0.2 AI (0.0-0.9); Anti-Smooth Muscle ABS 8 Units (0-19); Anti-dsDNA Ab <1 IU/mL (0-9); Cytoplasmic Ab (C-ANCA) <1:20 titer (Neg:<1:20); Gamma Globulin 0.6 g/dL (0.4-1.8); HEPATITIS B SURFACE AG Negative (Negative); Hep C Antibodies Non Reactive (Non Reactive); Hepatitis A IgM Antibody Negative (Negative); Hepatitis B Core AB IgM Negative (Negative); Immunoglobulin A 153 mg/dL (87-352); Immunoglobulin G 588 mg/dL (586-1602); Immunoglobulin M 21 mg/dL (26-217); PROEL- TOTAL PROTEIN 6.5 g/dL (6.0-8.5); Perinuclear Ab (P-ANCA) <1:20 titer (Neg:<1:20); RNP Ab <0.2 AI (0.0-0.9); SJOGREN'S Anti-SS-A test 0.2 AI (0.0-0.9); SJOGREN'S Anti-SS-B test 0.2 AI (0.0-0.9); Smith Ab <0.2 AI (0.0-0.9)
== END | disposition home or self-care (01) ==
PROVIDERS: PCP Internal Medicine; Referring Provider Internal Medicine Gastroenterology; Visit Provider Internal Medicine Gastroenterology
DX: R94.5 Abnormal results of liver function studies (principal); D64.9 Anemia, unspecified; E78.00 Pure hypercholesterolemia, unspecified
CPT/HCPCS: 36415; 80061; 80074; 82105; 82728; 82784; 83516; 83540; 83550; 84165; 85045; 86225; 86235; 86256; 86334

== ENCOUNTER → 2023-02-13 | Outpatient (CLI) | payer MEDICARE, MEDICAID, SELFPAY ==
--- NOTE | 2023-02-13 10:03 | US_ITS ---
STUDY: ABDOMINAL ULTRASOUND - RIGHT UPPER QUADRANT; ELASTOGRAPHY REASON FOR VISIT: Female, 63 years old. Elevated liver function tests. TECHNIQUE: Ultrasound evaluation of the right upper quadrant was performed with real-time and static arellano-scale imaging. Point quantification shear wave elastography was performed ([facility]). TECHNICAL QUALITY: Adequate. COMPARISON: None. FINDINGS: Liver: The liver is mildly enlarged and measures 17.3 cm. There is increased echogenicity consistent with fatty infiltration. The bile ducts are within normal limits. There is hepatic color flow. The direction of portal flow is hepatopetal. There is a 1 cm x 1.1 cm x 1 cm well-defined echogenic nodule in the inferior aspect of the right lobe of the liver suggests a very small hemangioma. Median liver stiffness measured 17 kPa. Gallbladder: Normal distended gallbladder. The gallbladder wall measures 1.6 mm. There is a negative sonographic Cuenca''s sign. There is no pericholecystic fluid. There are no gallstones. Common Bile Duct (C.B.D.): The common bile duct measures 5.2 mm. Pancreas: There is normal echogenicity of the visualized pancreas. There is no demonstrated pancreatic mass or cyst. Right Kidney: Normal size of the right kidney. The right kidney measures 8.6 cm x 4.6 x 4.1 cm. Normal renal cortex. The right cortex measures 1.0 cm. There is no demonstrated renal mass or cyst. There is no right hydronephrosis. US/ABD Limited w/ Elastography IMPRESSION: 1. Liver stiffness measures 17 kPa compatible with F3-F4 (Moderate to severe liver fibrosis) Metavir score. Electronically Signed: Zeeshan Boyer MD at 10:12 EDT ,
== END | disposition home or self-care (01) ==
LOC: US 10:02
PROVIDERS: PCP Internal Medicine; Referring Provider Internal Medicine Gastroenterology; Visit Provider Internal Medicine Gastroenterology
DX: R94.5 Abnormal results of liver function studies (principal)
CPT/HCPCS: 91200; 76705; 76981

== ENCOUNTER → 2023-03-01 | Outpatient (CLI) | payer MEDICARE, MEDICAID, SELFPAY ==
[2023-03-01 16:55] LABS: ALB/GLOB Ratio 1.5 RATIO (0.9-2.4); AST(SGOT) 15 U/L (15-37); Alanine Aminotransfer ALT/SGPT 23 U/L (13-56); Alkaline Phosphatase 138 U/L (45-117); Anion Gap 3 (5-15); BUN 13 mg/dL (7-18); BUN/Creat Ratio 9.7 RATIO (10-20); Calcium,Total 9.5 mg/dL (8.5-10.1); Chloride 112 mmol/L (98-107); Creatinine, Serum 1.34 mg/dL (0.55-1.02); EST Glomerular Filtration Rate 42 mL/min (>60); Est Glom Filt Rate - Afr Amer 51 mL/min (>60); Globulin 2.6 g/dL (2.2-4.2); Glucose 96 mg/dL (74-106); Potassium 4.6 mmol/L (3.5-5.1); Protein, Total 6.6 g/dL (6.4-8.2); Sodium Level 145 mmol/L (136-145); Thyroid Stim Hormone (TSH) 0.54 uIU/mL (0.358-3.74)
== END | disposition home or self-care (01) ==
LOC: BIMLAB 14:48
PROVIDERS: PCP Internal Medicine; Visit Provider Internal Medicine
DX: I10 Essential (primary) hypertension (principal)
CPT/HCPCS: 36415; 80053; 84443

== ENCOUNTER → 2023-06-02 | Outpatient (CLI) | payer MEDICARE, MEDICAID, SELFPAY ==
--- OUTSIDE RECORDS SUMMARY | 2023-06-02 14:57 | XMS RPT_ITS | CCD ---
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 Kapil Mckeon Attending Unav ailable Heidi, Dr. Kanika Lowe Primary Care Unavailable Heidi, Dr. Kanika Lowe Primary Care Unavailable Doni, Ms. Angelica Dill Attending U navyudi Mendoza, Dr. Kanika Lowe Primary Care Unavailable [facility] Dr[facility] Kapil Mckeon Attending Unav ailcalos Mendoza, Dr. Kanika Lowe Primary Care Unavailable [facility], Dr. Kapil Mckeon Attending Unav ailable Gagan, Dr. Kapil Mckeon Referring Unav ailable Gagan, Dr. Kapil Mckeon Admitting Unav ailable Gagan, Dr. Kapil Mckeon Admitting Unav ailable Heidi, Dr. Kanika Lowe Primary Care Unavailable [facility] Dr. Kapil Mckeon Attending Unav ailable Gagan, Dr. Kapil Mckeon Referring Unav ailable Heidi, Dr. Kanika Lowe Primary Care Unavailable Crews, Ms. Angelica Dill Attending U navyudi Mendoza, Dr. Kanika Lowe Primary Care Un[facility] Kapil Mckeon Attending Unav ailcalos Mendoza, Dr. Kanika Lowe Primary Care Unavailable Gagan, Dr. Kapil Mckeon Attending Una ailable Gagan, Dr. Kapil Mckeon Attending Nisreen ailcalos Mendoza, Dr. Kanika Lowe Primary Care Unavailable Gagan, Dr. Kapil Mckeon Attending Nisreen ailcalos Mendoza, Dr. Kanika Lowe Primary Care Unavailable Gagan, Dr. Kapil Mckeon Attending Nisreen ailcalos Mendoza, Dr. Kanika Lowe Primary Care Unavailable Heidi NUNEZ, Kanika Lowe [facility] ider OMAR MADISON Attending Unavailable ANGELICA CREWS Referring Unavailable KANIKA MENDOZA [facility] Care Nisreen ailable Medications Current Medications Medication Drug Class(es) Dates Sig (Normalized) Sig (Original) atorvastatin 20 mg oral tablet (16 sources) HMG-CoA Reductase Inhibitor Start: 07-10-2019 take 1 tablet by mouth once daily atorvastatin (Lipitor) 20 mg tablet Take 1 tablet (20 mg) by mouth once daily. 0 07/10/2019 Active Completed/Discontinued Medications Medication Drug Class(es) Dates Sig (Normalized) Sig (Original) ALPRAZolam 1 mg oral tablet (1 source) Benzodiazepine Start: 07-12-2022 ALPRAZolam 1 MG Oral Tablet 1 tab PO 45 minutes prior to procedure Quantity: 1 Refills: 0 Ordered: 12-Jul-2022 Kapil Farah MD Start : 12-Jul-2022 Active 24 hr buPROPion hydrochloride 150 mg extended release oral tablet (6 sources) Aminoketone Start: 07-25-2022 take 1 tablet by mouth every twenty-four hours buPROPion HCl ER (XL) 150 MG Oral Tablet Extended Release 24 Hour Quantity: 90 Refills: 0 Ordered: 25-Jul-2022 DO Start : 25-Jul-2022 Active Problems Active Problems Problem Classification Problem Date Documented Da te Episodic/Chronic Cancer of thyroid (14 sources) History of malignant neoplasm of thyroid; Translations: [Personal history of malignant neoplasm of thyroid] Episodic Essential hypertension (1 source) Essential (primary) hypertension; Translations: [Essential (primary) hypertension] Onset: 05-09-2022 Chronic Fracture of lower limb (16 sources) Closed fracture of ankle; Translations: [Aftercare for healing traumatic fracture of other bone] Onset: 01-25-2023 01-25-2023 Episodic Mood disorders (14 sources) Depressive disorder; Translations: [Depressive disorder, not elsewhere classified] Chronic Mood disorders (1 source) Mood disorders; Translations: [Depression, unspecified] Onset: 07-15-2022 Osteoarthritis (9 sources) Arthritis of hip; Translations: [Arthropathy, unspecified, pelvic region and thigh] Onset: 02-16-2023 Chronic Other circulatory disease (14 sources) H/O: hypertension; Translations: [Personal history of other diseases of circulatory system] Episodic Other connective tissue disease (1 source) Presence of unspecified artificial knee joint; Translations: [Presence of unspecified artificial knee joint] Onset: 07-15-2022 Chronic Other connective tissue disease (14 sources) H/O: arthritis; Translations: [Personal history of arthritis] Episodic Other diseases of kidney and ureters (15 sources) Kidney disease; Translations: [Unspecified disorder of kidney and ureter] Onset: 01-25-2023 01-25-2023 Episodic Past or Other Problems Problem Classification Problem Date Documented Da te Episodic/Chronic Residual codes; unclassified (1 source) Acquired absence of other organs; Translations: [Acquired absence of other organs] Onset: 07-15-2022 Episodic Residual codes; unclassified (1 source) Acquired absence of other part of head and neck; Translations: [Acquired absence of other part of head and neck] Onset: 05-09-2022 Episodic Screening and history of mental health and substance abuse codes (1 source) Personal history of nicotine dependence; Translations: [Personal history of nicotine dependence] Onset: 07-15-2022 Episodic Results Test Name Value Interpretation Reference Range Facil ity Vital Signs Date Time Vital Sign Value Performing Clinician Facility 04-07-2023 12:050 Body height [address] 04-07-2023 12:050 Body mass index (BMI) [Ratio] 39.34 kg/m2 [address] 04-07-2023 12:-050 Body temperature 97 [degF] [address] 04-07-2023 12:-050 Body weight 100.[address] 04-07-2023 12:26-0500 Heart rate 74 /min [address] 04-07-2023 12:26-0500 Respiratory rate 19 /min [address] 04-07-2023 12:26-0500 SaO2% (BldA) [Mass fraction] 96 % [address] 02-16-2023 14:51-0400 Body height 160.02 cm [facility] B [facility]leg[facility] Work Phone: [facility] Work Phone: 02-16-2023 14:51-0400 Body mass index (BMI) [Ratio] 39.33 kg/m2 [facility] Work Phone: [facility] Work Phone: 02-16-2023 14:51-0400 Body surface area Derived from formula 2.02 m2 [facility] Work Phone: [facility] Work Phone: 02-16-2023 14:51-0400 Body weight 100.7 kg [facility] Work Phone: [facility] Work Phone: 02-16-2023 14:51-0400 Diastolic blood pressure 83 mm[Hg] [facility] Work Phone: [facility] Work Phone: 02-16-2023 14:51-0400 Heart rate 69 /min [facility] Work Phone: [facility] Work Phone: 02-16-2023 14:51-0400 Respiratory rate 16 /min [facility] Work Phone: [facility] Work Phone: 02-16-2023 14:51-0400 Systolic blood pressure 135 mm[Hg] [facility] Work Phone: [facility] Work Phone: 10-03-2022 13:56-0400 Body mass index (BMI) [Ratio] 39.33 kg/m2 [facility] Work Phone: [facility] Work Phone: 10-03-2022 13:56-0400 Body surface area Derived from formula 2.02 m2 [facility] Work Phone: [facility] Work Phone: 10-03-2022 13:56-0400 Body weight 100.7 kg [facility] Work Phone: [facility] Work Phone: 10-03-2022 13:56-0400 Diastolic blood pressure 89 mm[Hg] [facility]leg[facility] Work Phone: [facility] Work Phone: 10-03-2022 13:56-0400 Heart rate 86 /min [facility] Work Phone: [facility] Work Phone: 10-03-2022 13:56-0400 Respiratory rate 16 /min [facility] Work Phone: [facility] Work Phone: 10-03-2022 13:56-0400 Systolic blood pressure 179 mm[Hg] [facility] Oleg[facility] Work Phone: [facility] Work Phone: 08-23-2022 14:53-0400 Body mass index (BMI) [Ratio] 38.09 kg/m2 [facility] Work Phone: [facility] Work Phone: 08-23-2022 14:53-0400 Body surface area Derived from formula 1.99 m2 [facility]leg[facility] Work Phone: [facility] Work Phone: 08-23-2022 14:53-0400 Body weight 97.52 kg [facility] Oleg[facility] Work Phone: [facility] Work Phone: 08-23-2022 14:53-0400 Diastolic blood pressure 83 mm[Hg] [facility]few[facility] B Oleghe Work Phone: [facility] Work Phone: 08-23-2022 14:53-0400 Heart rate 71 /min [facility]leg[facility] Work Phone: [facility] Work Phone: 08-23-2022 14:53-0400 Respiratory rate 16 /min [facility] Oleg[facility] Work Phone: [facility] Work Phone: 08-23-2022 14:53-0400 Systolic blood pressure 143 mm[Hg] [facility] Oleghe Work Phone: [facility] Work Phone: 08-01-2022 14:40-0400 Body height 160.02 cm [facility]leg[facility] Work Phone: [facility] Work Phone: 08-01-2022 14:40-0400 Body mass index (BMI) [Ratio] 37.2 kg/m2 [facility] Work Phone: [facility] Work Phone: 08-01-2022 14:40-0400 Body surface area Derived from formula 1.97 m2 [facility] Oleg[facility] Work Phone: [facility] Work Phone: 08-01-2022 14:40-0400 Body weight 95.26 kg [facility] B Oleghe Work Phone: [facility] Work Phone: 08-01-2022 14:40-0400 Diastolic blood pressure 67 mm[Hg] Efew[facility] B Oleghe Work Phone: [facility] Work Phone: 08-01-2022 14:40-0400 Heart rate 75 /min [facility] Oleg[facility] Work Phone: [facility] Work Phone: 08-01-2022 14:40-0400 Respiratory rate 12 /min [facility] Work Phone: [facility] Work Phone: 08-01-2022 14:40-0400 Systolic blood pressure 129 mm[Hg] [facility]few[facility] B Oleghe Work Phone: [facility] Work Phone: 07-04-2022 14:45-0500 Body height 160.02 cm [facility] Oleg[facility] Work Phone: [facility] Work Phone: 07-04-2022 14:45-0500 Body mass index (BMI) [Ratio] 37.38 kg/m2 [facility] Work Phone: [facility] Work Phone: 07-04-2022 14:45-0500 Body surface area Derived from formula 1.98 m2 [facility] Oleg[facility] Work Phone: [facility] Work Phone: 07-04-2022 14:45-0500 Body weight 95.71 kg [facility] Oleg[facility] Work Phone: [facility] Work Phone: 07-04-2022 14:45-0500 Diastolic blood pressure 84 mm[Hg] Efew[facility] B Oleghe Work Phone: [facility] Work Phone: 07-04-2022 14:45-0500 Heart rate 77 /min [facility]leg[facility] Work Phone: [facility] Work Phone: 07-04-2022 14:45-0500 Respiratory rate 12 /min [facility] Work Phone: [facility] Work Phone: 07-04-2022 14:45-0500 Systolic blood pressure 143 mm[Hg] [facility] B Oleghe Work Phone: [facility] Work Phone: 05-02-2022 10:07-0500 Body height 160.02 cm [facility] Oleg[facility] Work Phone: [facility] Work Phone: 05-02-2022 10:07-0500 Body mass index (BMI) [Ratio] 36.67 kg/m2 [facility]leg[facility] Work Phone: [facility] Work Phone: 05-02-2022 10:07-0500 Body surface area Derived from formula 1.96 m2 [facility] Oleg[facility] Work Phone: [facility] Work Phone: 05-02-2022 10:07-0500 Body weight 93.9 kg [facility] Oleg[facility] Work Phone: [facility] Work Phone: 05-02-2022 10:07-0500 Diastolic blood pressure 71 mm[Hg] Efew[facility] B Oleghe Work Phone: [facility] Work Phone: 05-02-2022 10:07-0500 Heart rate 73 /min [facility] Oleg[facility] Work Phone: [facility] Work Phone: 05-02-2022 10:07-0500 Respiratory rate 12 /min [facility]leg[facility] Work Phone: [facility] Work Phone: 05-02-2022 10:07-0500 Systolic blood pressure 131 mm[Hg] [facility] Oleg[facility] Work Phone: [facility] Work Phone: 01-31-2022 10:26-0400 Body height 160.02 cm Kapil Farah MD Work Phone: [facility] Work Phone: 01-31-2022 10:26-0400 Body mass index (BMI) [Ratio] 36.14 kg/m2 Kapil Farah MD Work Phone: [facility] Work Phone: 01-31-2022 10:26-0400 Body surface area Derived from formula 1.95 m2 Kapil Farah MD Work Phone: [facility] Work Phone: 01-31-2022 10:26-0400 Body weight 92.53 kg Kapil Farah MD Work Phone: [facility] Work Phone: 01-31-2022 10:26-0400 Diastolic blood pressure 67 mm[Hg] Kapil Farah MD Work Phone: [facility] Work Phone: 01-31-2022 10:26-0400 Heart rate 71 /min Kapil Farah MD Work Phone: [facility] Work Phone: 01-31-2022 10:26-0400 Respiratory rate 16 /min Kapil Farah MD Work Phone: [facility] Work Phone: 01-31-2022 10:26-0400 Systolic blood pressure 115 mm[Hg] Kapil Farah MD Work Phone: [facility] Work Phone: 08-30-2021 08:34-0400 Body height 160.02 cm Kapil Farah MD Work Phone: [facility] Work Phone: 08-30-2021 08:34-0400 Body mass index (BMI) [Ratio] 37.91 kg/m2 Kapil Farah MD Work Phone: [facility] Work Phone: 08-30-2021 08:34-0400 Body surface area Derived from formula 1.99 m2 Kapil Farah MD Work Phone: [facility] Work Phone: 08-30-2021 08:34-0400 Body weight 97.07 kg Kapil Farah MD Work Phone: [facility] Work Phone: 08-30-2021 08:34-0400 Diastolic blood pressure 74 mm[Hg] Kapil Farah MD Work Phone: [facility] Work Phone: 08-30-2021 08:34-0400 Heart rate 76 /min Kapil Farah MD Work Phone: [facility] Work Phone: 08-30-2021 08:34-0400 Respiratory rate 16 /min Kapil Farah MD Work Phone: [facility] Work Phone: 08-30-2021 08:34-0400 Systolic blood pressure 133 mm[Hg] Kapil Farah MD Work Phone: [facility] Work Phone: 06-29-2021 10:36-0500 Body mass index (BMI) [Ratio] 37.73 kg/m2 Kapil Farah MD Work Phone: [facility] Work Phone: 06-29-2021 10:36-0500 Body surface area Derived from formula 1.99 m2 Kapil Farah MD Work Phone: [facility] Work Phone: 06-29-2021 10:36-0500 Body temperature 97.3 [degF] Kapil Farah MD Work Phone: [facility] Work Phone: 06-29-2021 10:36-0500 Body weight 96.62 kg Kapil Farah MD Work Phone: [facility] Work Phone: 06-29-2021 10:36-0500 Diastolic blood pressure 80 mm[Hg] Kapil Farah MD Work Phone: [facility] Work Phone: 06-29-2021 10:36-0500 Heart rate 73 /min Kapil Farah MD Work Phone: [facility] Work Phone: 06-29-2021 10:36-0500 Respiratory rate 16 /min Kapil Farah MD Work Phone: [facility] Work Phone: 06-29-2021 10:36-0500 Systolic blood pressure 138 mm[Hg] Kapil Farah MD Work Phone: [facility] Work Phone: 12-28-2020 13:35-0400 Body mass index (BMI) [Ratio] 39.24 kg/m2 Kapil Farah MD Work Phone: [facility] Work Phone: 12-28-2020 13:35-0400 Body surface area Derived from formula 2.02 m2 Kapil Farah MD Work Phone: [facility] Work Phone: 12-28-2020 13:35-0400 Body temperature 97.1 [degF] Kapil Farah MD Work Phone: [facility] Work Phone: 12-28-2020 13:35-0400 Body weight 100.47 kg Kapil Farah MD Work Phone: [facility] Work Phone: 12-28-2020 13:35-0400 Diastolic blood pressure 79 mm[Hg] Kapil Farah MD Work Phone: [facility] Work Phone: 12-28-2020 13:35-0400 Heart rate 72 /min Kapil Farah MD Work Phone: [facility] Work Phone: 12-28-2020 13:35-0400 Respiratory rate 16 /min Kapil Farah MD Work Phone: [facility] Work Phone: 12-28-2020 13:35-0400 Systolic blood pressure 133 mm[Hg] Kapil Farah MD Work Phone: [facility] Work Phone: Encounters Encounter Date Encounter Type Care Provider Facility Start: 04-07-2023 End: 04-08-2023 ambulatory OMAR D FRANCIA [facility] Start: 04-07-2023 End: 04-07-2023 Subsequent hospital visit by physician Omar Madison MD Work Phone: [facility] Procedures Date Procedure Procedure Detail Performing Clinician Start: 04-07-2023 FL GUIDED INJECTION HIP RIGHT OMAR MADISON Start: 07-15-2022 Epidural steroid injection Kanika Mendoza Work Phone: Plan of Treatment Date Care Activity Detail Author Start: 03-27-2025 Lipid panel Lipid Panel [facility] Start: 12-05-2022 FUV, Provider: Kapil Farah, Status: Pen, Time: 1:00 PM FUV, Provider: Kapil Farah, Status: Pen, Time: 1:00 PM [facility] Work Phone: Start: 10-31-2022 FUV, Provider: Kapil Farah, Status: Pen, Time: 1:45 PM FUV, Provider: Kapil Farah, Status: Pen, Time: 1:45 PM [facility] Work Phone: Start: 10-03-2022 FUV, Provider: Kapil Farah, Status: Pen, Time: 1:30 PM FUV, Provider: Kapil Farah, Status: Pen, Time: 1:30 PM [facility] Work Phone: Start: 08-01-2022 FUV, Provider: Kapil Farah, Status: Pen, Time: 2:45 PM FUV, Provider: Kapil Farah, Status: Pen, Time: 2:45 PM [facility] Work Phone: Start: 07-15-2022 [facility], Provider: Kapil Farah, Status: Pen, Time: 12:00 PM [facility], Provider: Kapil Farah, Status: Pen, Time: 12:00 PM [facility] Work Phone: Start: 06-14-2022 FUV, Provider: Kapil Farah, Status: Pen, Time: 9:45 AM FUV, Provider: Kapil Fraah, Status: Pen, Time: 9:45 AM [facility] Work Phone: Start: 05-02-2022 FUV, Provider: Kapil Farah, Status: Pen, Time: 10:00 AM FUV, Provider: Kapil Farah, Status: Pen, Time: 10:00 AM [facility] Work Phone: Start: 11-01-2021 FUV, Provider: Kapil Farah, Status: Pen, Time: 8:30 AM FUV, Provider: Kapil Farah, Status: Pen, Time: 8:30 AM [facility] Work Phone: Start: 08-16-2021 FUV, Provider: Kapil Farah, Status: Pen, Time: 11:30 AM FUV, Provider: Kapil Farah, Status: Pen, Time: 11:30 AM [facility] Work Phone: Start: 06-29-2021 FUV, Provider: Kapil Farah, Status: Pen, Time: 10:00 AM FUV, Provider: Kapil Farah, Status: Pen, Time: 10:00 AM [facility] Work Phone: Start: 03-27-2021 Thyroid stimulating hormone measurement TSH Level [facility] Start: 12-28-2020 FUV, Provider: Kapil Farah, Status: Pen, Time: 1:15 PM FUV, Provider: Kapil Farah, Status: Pen, Time: 1:15 PM [facility] Work Phone: Start: 04-17-2009 MMR Vaccines (1 of 1 - Standard series) MMR Vaccines (1 of 1 - Standard series) [facility] Start: 05-06-2006 DTaP/Tdap/Td Vaccines (1 - Tdap) DTaP/Tdap/Td Vaccines (1 - Tdap) [facility] Start: 2000 Screening for malignant neoplasm of breast Mammogram [facility] Start: 01-21-1981 Screening for malignant neoplasm of cervix [facility] Start: 01-21-1978 Hepatitis C screening Hepatitis C Screening [facility] Start: 1960 COVID-19 Vaccine (#1) COVID-19 Vaccine (#1) [facility] Start: 1960 HIV screening HIV Screening [facility] Start: 1960 Medicare Annual Wellness Visit Medicare Annual Wellness Visit (AWV) [facility] Start: 1960 Screening for malignant neoplasm of colon [facility] End: 04-07-2023 RF Guidance for injection of Joint FL guided injection hip right Imaging Routine Primary osteoarthritis of right hip Right hip pain Once for 1 Occurrences starting 04/07/2023 until 04/07/2023 [facility] Service Area Work Phone: Immunizations Immunization Date Immunization Notes Care Provider Will coyle 03-14-2022 influenza, seasonal, injectable [address] Work Phone: 06-03-2020 zoster vaccine recombinant [address] Work Phone: 03-13-2020 zoster vaccine recombinant [address] Work Phone: 02-20-2020 influenza, injectabl e, quadrivalent, preservative free [address] Work Phone: 03-20-2009 novel Influenza-H1N1 -09, live virus for nasal administration [address] Work Phone: 05-05-2006 TD(adult) unspecifie d formulation [address] Work Phone: 09-15-1986 tetanus and diphther ia toxoids, adsorbed, preservative free, for adult use (5 Lf of tetanus toxoid and 2 Lf of diphtheria toxoid) [address] Work Phone: Payers Date Payer Category Payer Private Health Insurance [id number] 2022 Private Health Insurance [facility] DUAL COMPLETE [facility] DUAL COMPLETE [id number] 2022-Present [address] [address] [place] [address] [id number] 2022 Medicaid [id number] 2022 Medicaid MEDICAID MEDICAI D [id number] 2022-Present [address] [place] [address] [id number] 1960 Unknown [id number] 1068 1960 Unknown [id number]. 1068 1960 Unknown [id number]. 1068 1960 Unknown [id number]. 1068 1960 Unknown [id number]. 1068 1960 Unknown [id number]. 1068 1960 Unknown [id number]. 1068 1960 Unknown [id number] [id number]. 1068 1960 Unknown [id number] [id number]. 1068 1960 Unknown [id number] [id number]. 1068 1960 Unknown [id number]. 1068 1960 Unknown [id number] 1243 Medicare [id number] Unknown Social History Date Type Detail Facility Start: 04-07-2023 Former smoker [facility] Work Phone: Start: 04-07-2023 Tobacco smoking stat NHIS Never smoked tobacco [facility] Start: 04-07-2023 Tobacco use and exposure Smokeless tobacco non-user [facility] Work Phone: Start: 04-07-2023 Alcohol intake Lifetime non-d star (finding) [facility] Work Phone: Start: 04-07-2023 [facility] Work Phone: Start: 1960 Sex Assigned At Not on file [facility] Work Phone: Start: 03-28-2023 End: 04-07-2023 Exposure to SARS-CoV-2 (event) Not sure [facility] Clinical Notes 12-29-2020 to 08-23-2022 Note Date & Type Note Facility 08-23-2022 History of Present illness Narrative On a scale of 0 to 10, the patient rates the pain at 6.Pain Location: Low Back Pain and Left.Pain Quality: Sharp and Shooting.Pain Radiation: L hip, buttocks.Timing/Duration: Constant and < 6 weeks duration.Controlled Substance:I have personally reviewed the [place] report for ELIZABETH MERRITT. I have considered the risks of abuse, dependence, addiction and diversion.Goals for Pain Management:Oswestry Disability Index = 60. [facility] Work Phone: 08-09-2022 Chief complaint Narrative - Reported FUV for L sided low back pain with radiation to L hip and buttocks; 10/29 today. Patient states pain increases as the day progresses.This is a 62-year-old female here for a follow-up appointment for chief complaint of left-sided low back pain. She reports that 2 weeks ago she had relatively abrupt onset of pain in the left lower back that would radiate into the buttock. It is not yet radiating down the leg but she is scared that it will. She reports that it is similar to what she has had on the right side. She thinks that she may have done this getting out of the car. She reports the left-sided pain is a 6 out of 10 and describes as a sharp sensation. It is worse with activity. She reports that her right-sided pain is a 0 out of 10. She reports the last right L5 and S1 transforaminal epidural steroid injection has resolved her lower back and right leg symptoms by over 75%. Her standing and walking have improved dramatically in the cramping in her right leg is also gone. She denies new neurologic symptoms or issues with bladder or bowel control.The patient denies any additional numbness, tingling, weakness, or any loss of bladder or bowel control. The patient's past medical, social, and family history along with medications and allergies are available and were reviewed. [facility] Work Phone: 08-01-2022 History of Present illness Narrative On a scale of 0 to 10, the patient rates the pain at 6.Pain Location: Low Back Pain.Pain Quality: Cramping and Tightness.Pain Radiation: RIGHT LET TO KNEE. ImprovedControlled Substance:I have personally reviewed the [place] report for ELIZABETH MERRITT. I have considered the risks of abuse, dependence, addiction and diversion.Exacerbating Factors: motion, repetitive motion, sitting, standing and stairs.Alleviating Factors: Exercise, Medications, Repositioning.24 Hour Behavior:Symptoms are the same in the am.Symptoms are the same as the day progresses.Symptoms are the same in the pm.Symptoms are the same when lying down.Goals for Pain Management:OSWESETRY DISABILITY INDEX=29.Patient Education:Inj. education completed written and verbally. [facility] Work Phone: 07-15-2022 Note PROCEDURE DETAILS Preoperative Diagnosis: Radiculopathy, lumbosacral region, M54.17 Postoperative Diagnosis: Radiculopathy, lumbosacral region, M54.17 Surgeon: Kapil Farah Resident/Fellow/Other Oil Boiler: None of these were associated with this case Procedure: 1. R L5 + S1 TFESI Anesthesia: No anesthesiologist associated with this case Estimated Blood Loss: 0 Findings: NA Additional Details: The patient has a greater than 2-month history of severe low back and leg pain. The patient has previously failed 6 weeks of conservative management with exercise therapy and medications. The pain significantly interrupts the patient's physical function. The patient does not desire spine surgery. The patient had undergone a previous epidural injection and obtained greater than 60% pain relief and functional improvement for at least 3 months. Her imaging is notable for moderate central stenosis at L5-S1 compromising the right S1 nerve root and right-sided neuroforaminal stenosis at L5-S1 compromising the right L5 nerve root which correlates with her symptoms so the procedure was performed at those 2 levels Operative Report: Procedure: Right lumbosacral transforaminal epidural steroid injection under fluoroscopic guidance of the right L5 nerve root at the right L5-S1 foramen and of the right S1 nerve root at the first sacral foramen on the right Diagnosis: Lumbosacral to colopathy Solution used: 1 mL of Kenalog 40 mg, 3 mL normal saline, 1 mL of lidocaine 2%, 5 mL total. 2.5 mL per site Anesthesia: Local Complications: None Notes: Lumbarized S1 segment After informed consent was obtained, the patient was brought to the OR and placed in the prone position. The area in question was prepped and draped in sterile fashion. An ipsilateral oblique fluoroscopic view of the lumbar spine was obtained and after 2 ml of lidocaine 2% was injected into the skin at each site, a 22-gauge Chiba needle was inserted into the skin and advanced to the 6 clock position beneath the L5 pedicle and a 25 gauge Quincke needle was inserted into the skin and advanced into the S1 foramen on the right side under intermittent fluoroscopic guidance. Proper needle position was confirmed via both AP and lateral fluoroscopy. 1 mL Omnipaque was injected under live fluoroscopy at each site which demonstrated appropriate epidural and nerve root uptake and the absence of any intravascular or intrathecal spread. The local anesthetic steroid solution was then injected incrementally at each site. The 2 needles were removed. Bleeding was nil. The patient tolerated the procedure well and was transferred to the recovery room in good condition. Attestation: Note Completion: Attending AttestationI performed the procedure without a resident Electronic Signatures: Kapil Farah) (Signed 15-Jul-2022 17:14) Authored: Post-Operative Note, Chart Review, Note Completion Last Updated: 15-Jul-2022 17:14 by Kapil Farah) [facility] 05-09-2022 Note PROCEDURE DETAILS Preoperative Diagnosis: Spondylosis without myelopathy or radiculopathy, lumbosacral region, M47.817 Postoperative Diagnosis: Spondylosis without myelopathy or radiculopathy, lumbosacral region, M47.817 Surgeon: Kapil Farah Resident/Fellow/Other Oil Boiler: None of these were associated with this case Procedure: 1. BILAT L1-L3 MBB Anesthesia: No anesthesiologist associated with this case Estimated Blood Loss: 0 Findings: NA Additional Details: The patient has a greater than 3-month history of bilateral axial lumbar spinal pain. On exam the patient has bilateral paraspinal tenderness exacerbated with facet loading at the levels in question. The imaging is notable for spondylosis and facet arthropathy at the L1-L3 levels bilaterally. The patient does not have evidence of spinal claudication or radiculopathy. The patient has failed conservative management with medications and exercise therapy. The pain significantly impairs the patient's function. Of note the patient has an L3-L5 fusion and has a lumbarized S1 segment. Operative Report: Procedure: Bilateral diagnostic lumbar medial branch blocks under fluoroscopic guidance of the medial branches of T12-L2 covering the facet joints from L1-L3 Diagnosis: Lumbosacral spondylosis Solution: 3 mL of bupivacaine 0.5% total. 0.5 mL per branch Anesthesia: Local Complications: None After informed consent was obtained the patient was brought to the OR and placed in the prone position. The area in question was prepped and draped in sterile fashion. An ipsilateral oblique fluoroscopic view of the lumbosacral spine was obtained and a 25-gauge quincke needle was inserted into the skin and advanced to the junction of the superior articular process and transverse process of the L1, L2, and L3 vertebrae on the left and right under intermittent fluoroscopic guidance. Aspiration at each site was negative. The local anesthetic solution was injected at each site. The 6 needles were removed. Bleeding was nil. The patient tolerated the procedure well and was transferred to the recovery room in good condition. Attestation: Note Completion: Attending AttestationI performed the procedure without a resident Electronic Signatures: Kapil Farah) (Signed 09-May-2022 13:39) Authored: Post-Operative Note, Chart Review, Note Completion Last Updated: 09-May-2022 13:39 by Kapil Farah) [facility] 05-02-2022 History of Present illness Narrative On a scale of 0 to 10, the patient rates the pain at 5.Pain Location: Low Back Pain.Pain Quality: Aching.Timing/Duration: Constant and > 12 weeks duration.Controlled Substance:I have personally reviewed the [place]ARRS report for ELIZABETH MERRITT. I have considered the risks of abuse, dependence, addiction and diversion.Exacerbating Factors: motion, repetitive motion, standing, walking and ADL.Alleviating Factors: Exercise, Medications, Repositioning.24 Hour Behavior:Symptoms are the same in the am.Symptoms are the same as the day progresses.Symptoms are the same in the pm.Symptoms are the same when lying down.Patient Education:Inj. education completed written and verbally. [facility] Work Phone: 01-31-2022 History of Present illness Narrative On a scale of 0 to 10, the patient rates the pain at 9.WITH WALKING.Pain Location: Low Back Pain.Pain Quality: Pressure, Sharp and PINCHING.Pain Radiation: BILATERAL HIPS.Timing/Duration: Constant and > 12 weeks duration.Controlled Substance:I have personally reviewed the OARRS report for ELIZABETH MERRITT. I have considered the risks of abuse, dependence, addiction and diversion.Exacerbating Factors: kneeling, motion, time of day: WORSE IN EVENING, repetitive motion, squatting, standing, stairs, walking and weightbearing.Alleviating Factors: Cold Therapy, Moist Heat, Repositioning.24 Hour Behavior:Symptoms are the same in the am.Symptoms are the same as the day progresses.Symptoms are worse in the pm.Symptoms are better lying down. [facility] Work Phone: 08-30-2021 History of Present illness Narrative On a scale of 0 to 10, the patient rates the pain at 4.Pain Location: Low Back Pain.Pain Quality: Burning and Cramping.Pain Radiation: Radiates down bilateral legs to her knees.Timing/Duration: Constant and > 12 weeks duration.Patient Education:Inj. education completed written and verbally. [facility] Work Phone: 06-29-2021 History of Present illness Narrative On a scale of 0 to 10, the patient rates the pain at 4.now and 10/10 at its worst.Pain Location: Low Back Pain and bilat.Pain Quality: Cramping, Sharp and Shooting.Pain Radiation: down bilat lateral legs lt side stopping at mid thigh and rt side goes all the way down her leg into her feet.Sensory/ Motor: Numbness, Pins and Congress and lateral sides of builat legs.Timing/Duration: Constant and > 12 weeks duration.Patient Education:Inj. education completed written and verbally. [facility] Work Phone: 12-29-2020 History of Present illness Narrative On a scale of 0 to 10, the patient rates the pain at 4.Pain Location: Low Back Pain and rt side.Pain Quality: Aching and burning and tinglint in bilat thighs.Timing/Duration: Constant and > 12 weeks duration.Goals for Pain Management:Opioid Risk score = 1. [facility] Work Phone: documented in this encounter [facility] Work Phone: History of Present illness Narrative* On a scale of 0 to 10, the patient rates the pain at 8. * Pain Location: Low Back Pain and RIGHT BUTTOCK HIP AREA. * Pain Quality: Aching, Dull, Sharp and Spasm. Improved * Exacerbating Factors: rest, motion, repetitive motion, sitting, standing, stairs, walking and ADL. * Alleviating Factors: Exercise, Medications, Repositioning. * 24 Hour Behavior: * Symptoms are the same in the am. * Symptoms are the same as the day progresses. * Symptoms are the same in the pm. * Symptoms are the same when lying down. * Goals for Pain Management: * OSWESETRY DISABILITY INDEX=27. [facility] Work Phone: History of Present illness Narrative* On a scale of 0 to 10, the patient rates the pain at 8. * Pain Location: Low Back Pain and rt side. * Pain Quality: Sharp and like a dart . * Pain Radiation: rt gluteal. * Timing/Duration: Intermittent and > 12 weeks duration. * Controlled Substance: * I have personally reviewed the OARRS report for ELIZABETH MERRITT. I have considered the risks of abuse,dependence, addiction and diversion. * Exacerbating Factors: motion, lifting, sitting, squatting, standing, stairs, walking and bending . * Alleviating Factors: Medications, Repositioning, Other: ___. [facility] Work Phone: History of Present illness Narrative* On a scale of 0 to 10, the patient rates the pain at 6. * Pain Location: Low Back Pain and Right. * Pain Quality: Burning and Sharp. * Pain Radiation: Radiates into right hip. * Sensory/ Motor: Pins and Congress and Tingling in right lower back if she stands for too long. * Timing/Duration: Intermittent and > 12 weeks duration. * Patient Education: * Inj. education completed written and verbally. * Patient is a 63-year-old female. She presents today for a 3-month follow-up. At this time, she continues on gabapentin and tizanidine. She is using tizanidine 4 mg twice daily as needed pain and gabapentin 100 mg 3 times a day. This does give her some improvement. Unfortunate, she is still having so me right buttock pain with right groin pain. She admits to difficulty getting in and out of the car. Difficulty going up and down stairs. Difficulty getting on her shoes and socks. She states that this pain seems different than her previous pain. No radiculopathy. Just buttock and groin pain. She is overall very bothered by this and wonders what her options are. She states that it is a stabbing type discomfort. It affects her ability to walk. Affects her ability to do the things she wants to do. It affects her quality of life and her activities during the day. She really would like to try to get some relief of this pain and wonders what her options are. She is not able to use anti-inflammatory medications due to some renal disease. She has done some stretching at home but this has not helped. [facility] Work Phone: Chief Complaint * FUV 3 months reports having rt lower back and down bilat lateral lt and rt legs to the knees rates 4/10. She reports her kidney is a stage 3 disease she was instructed not to take Aleve, NSAIDS, and tizanidine until she see's a specials for it. * This is a 60-year-old female here for a follow-up appointment for chief complaint of low back and leg pain. She reports that since her last visit her symptoms have been manageable. The relief that she got from the last transforaminal injection in August is still holding. She did have to stop NSAIDs and tizanidine at the request of her primary care doctor for renal issues. She is going to see a rehabilitation tech in the near future. She denies new neurologic symptoms or issues with bladder or bowel control. * The patient's past medical, social, and family history along with medications and allergies are available and were reviewed. * FUV today she has pain in bilat lower back radiating down bilat lateral legs lt side stopping at mid thigh and rt side goes all the way down her leg into her feet she is having a lot of cramping in her rt leg and rt foot rates 4/10 now and 10/10 at its worst. Needs a RF on Tizanidine send to [facility] * This is a 61-year-old female here for a follow-up appointment for chief complaint of lower back andright leg pain. I had last seen her in the summer at which time she was doing well. She reports shecontinued to do well up until the beginning of the year. At that time she started having the more severe pain going down her right leg into the foot. She last underwent a right L5 and S1 transforaminal epidural steroid injection in August and had 8 months of greater than 60% relief in terms of improved pain but also improved function. During that time she can function with much less difficulty. She would like to repeat an injection as soon as she can. She reports the tizanidine has remained helpful as well. She denies any significant left-sided symptoms. She denies new neurologic symptoms or issues with bladder or bowel control. * The patient's past medical, social, and family history along with medications and allergies are available and were reviewed. * Patient is following up from a Right L5+S1 TFESI that she had on 07/16/21. Patient is reporting that she got 50% relief from that injection. Patient complains of pain across her lower back and radiating down her bilateral legs to her knees. Patient rates her pain a 4/10 today. * This is a 61-year-old female here for a follow-up appointment for chief complaint of low back and bilateral hip pain. At her last visit she underwent a right L5 and S1 transforaminal epidural steroidinjection. She reports the radicular pain going down past the knee has been improved by 100%. Overall she is about 50% better in terms of improved pain and improved function but she still has severe pain in the lower back and buttocks on both sides. She reports the pain is constant but worse with prolonged sitting. She had undergone a set of sacroiliac injections for this issue a little over a year ago and had over 60% relief up until recently. She is using tizanidine which helps with the spasms. She denies side effects. She has maintained her home exercises. She denies new neurologic symptoms or issues with bladder or bowel control. * The patient's past medical, social, and family history along with medications and allergies are available and were reviewed. * FUV 3 MONTHS. PATIENT STATES HER PAIN IS A 3/10 CURRENTLY IN HER LOW BACK THAT RADIATES INTO HER BILATERAL HIPS. WHEN SHE WALKS, IT IS SHOOTING/STABBING IN NATURE. PATIENT STATES THAT LYING DOWN HELPS HER PAIN. SOMETIMES SHE USES ICE/HEAT TO HELP HER PAIN. PATIENT DENIES TAKING TYLENOL OR IBUPROFENFOR HER PAIN. SHE STATES THAT SHE HAS NOT TAKEN HER TIZANIDINE IN A WHILE BUT SHE THINKS SHE NEEDS REFILLS SENT TO [facility]. PATIENT DENIES SEEING A CHIROPRACTOR OR MASSAGE THERAPIST. * PAIN SCORE 3/10 CURRENT BUT 8-9/10 WITH WALKING. * This is a 62-year-old female here for a follow-up appointment for chief complaint of low back and hip pain. She reports that since her last visit she has not had any leg pain but is having more pain in the upper lumbar and in the sacroiliac area. She states the pain is present and equal on both sides. It is worse with activity. It will improve if she lies down. She is using tizanidine sporadically which helps. She does not want to try anything stronger. She maintains her home exercises. She denies new neurologic symptoms or issues with bladder or bowel control. * The patient's past medical, social, and family history along with medications and allergies are available and were reviewed. * ONGOING LOWER BACK ACHE, SHE GETS SOME SHARP PAINS ON AND OFF,PAIN WITH WALKING,STANDING,REP MOTION, SHE TAKES TIZANIDINE DIRECTED,SHE DID NOT GET WALKER DUE TO INSURANCE ISSUE, IF SHE WALKS TOO FAR AND HAS PAIN SHE NEEDS TO GRAB ONTO SOMETHING, SHE CANNOT USES ICE/HEAT AGGRAVATES HER BACK MORE,DOING HOME EXERCISES/STRETCHES, SCORE 5/10 * This is a 62-year-old female here for a follow-up appointment for chief complaint of bilateral axial lower back pain. She reports that since her last visit the pain has gotten more intense. She states it is constant but is worse with standing and walking. It has been present for over 3 months. She has tried her home exercises and stretching which have not been beneficial. She has tried Tylenol and anti-inflammatories for the past 3 months which have not been successful. She she will still use tizanidine which helps modestly. Her last procedure was a set of bilateral sacroiliac injections thatshe underwent 7 months ago and she reports that the sacroiliac pain is still over 75% improved. Shedoes not have any buttock pain. The pain feels like it is just above her fusion. She denies any legpain. She denies numbness, tingling, weakness, or loss of bladder or bowel control. * The patient's past medical, social, and family history along with medications and allergies are available and were reviewed. * F/U BILATERAL L1-3 MBB 100% RELIEF SINCE INJECTION, SHE IS ABLE TO STAND STRAIGHT, NO PAIN WITH WALKING IN THE LOWER BACK THAT WAS INJECTED, SHE HAS RIGHT SIDED SHARP,DULL,ACHING PAINS WITH SPASMS INTHE LOWER BUTTOCK AND HIP AREA, SHE IS TAKING TIZANIDINE WHICH SLOWLY GIVES HER RELIEF, SCORE 8/10 * This is a 62-year-old female here for a follow-up appointment for chief complaint of low back and leg pain. At her last visit she underwent a set of bilateral L1-L3 medial branch blocks. She reports 100% pain relief starting immediately after the procedure and lasting to this day. The upper back pain has remained absent ever since. She cannot reproduce it anymore and it is not impacting her function at all. She reports that she started to have return of her radicular pain in the right leg a month ago and it has been getting stinging ever since. It is gotten severe and is impacting her function again. She denies any left leg pain. She last underwent a lumbosacral transforaminal epidural injection at the right L5 and S1 levels 1 year ago and had over 6 months of greater then 60% pain reliefand functional improvement up until recently. She would like to repeat an injection. She reports that tizanidine has remained effective and she denies side effects. She does not want to have another back surgery. She denies new neurologic symptoms or issues with bladder or bowel control. * The patient's past medical, social, and family history along with medications and allergies are available and were reviewed. * F/U RIGHT L5 + S1 TFESI 75% RELIEF, WHEN SHE DRIVES SHE GETS A CRAMPING IN THE RIGHT HIP BUTTOCK AREA WITH A CHARLEY HORSE FEELING THAT CRAMPS DOWN HER LEG TO ABOUT HER KNEE,SHE REPOSITIONS FOR RELIEF, TAKING TIZANIDINE DIRECTED, SCORE 6/10 * This is a 62-year-old female here for a follow-up appointment for chief complaint of low back and right leg pain. At her last visit she underwent a right L5 and S1 transforaminal epidural steroid injection. She reports 75% pain relief and functional improvement. She reports her back pain and her leg pain have been much better as result. Her walking is much better as well. The only truly bothersome thing she has going on currently is that she will get discomfort in cramping in the back of her right leg when she is driving. She reports that if she shifts a little in her seat it will improve andit is a manageable issue for now. She denies weakness in the legs. She reports that her pain is notkeeping her up at night. She is only using the tizanidine at bedtime. She denies additional neurologic symptoms or issues with bladder or bowel control. * The patient's past medical, social, and family history along with medications and allergies are available and were reviewed. * FUV 6 weeks meds she reports she did not go to PT because the GPN helped her pain. Today she reports having rt side lower back and gluteal pain woke up with it this morning states it may be bending over gardening rates 8/10 describes as sharp like darts comes and goes with movement. The pain affects her ADLs as it hurt to stand, walk, bend over, and sit the rt side. She reports she cannot stand longer than 10 minutes or walk a 1/4 mile due to the pain. She would like to discuss the GPN she cannot take it as prescribed makes her too tired. * Oswestry Disability Index evaluation tool completed by patient score 58 out of 100 * This is a 62-year-old female here for a follow-up appointment for chief complaint of low back and leg pain. At her last visit she was having severe left-sided pain. I had written her for gabapentin which ended up helping a lot. She reports it made her quite drowsy so she is only using 100 mg at bedt robbie. She reports the left-sided pain has resolved but she is starting to have recurrence of right-sided pain. It is going from the lower back into the buttock and is starting to go down the leg. She denies any left-sided pain. She is still doing her previous spine exercises. She does not want to have another surgery. She would like to hold off on an injection until she really needs it. She deniesnew neurologic symptoms or issues with bladder or bowel control. * The patient denies any additional numbness, tingling, weakness, or any loss of bladder or bowel control. The patient's past medical, social, and family history along with medications and allergies are available and were reviewed. * Patient is a new patient today. Patient complains of right lower back and hip area pain. Patient states it is intermittent. Patient rates her pain a 6/10 at this time. Patient states it's a sharp pain. She states today she feels she is being stabbed by a needle. Patient states walking increases herpain. Patient denied radiation down her leg. Patient able to sit 1 hour, stand 1 hour, and walk 100yards. * KIMBER score 38. Patient denied smoking. Depression screen completed, negative. BMI 39.33, education handout provided. Summary Purpose Family History No Family History Records FoundNo Family History Records FoundNo Family History Records Found Advance Directives No Advanced Directives Records FoundNo Advanced Directives Records FoundNo Advanced Directives Records Found Reason for Referral Specialty Diagnoses / Procedures Referred By Contac t Referred To Contact Pain Medicine Diagnoses Primary osteoarthritis of right hip Right hip pain Procedures [place] guided injection hip right Angelica Crews PA-C [address] [place] [address] [id number] Referral ID Status Reason Start Date Expiration Date Visits Requested Visits Authorized [id number] Authorized Perform Procedure 3 03/14/2024 1 1 Additional Source Comments INFORMATION SOURCE (unrecogn ized section and content) DATE CREATED AUTHOR AUTHOR'S ORGANIZ ATION 02/24/2023 [facility] DATE CREATED AUTHOR AUTHOR'S ORGANIZ ATION 04/14/2023 [facility] Reason for Visit (unrecogniz ed section and content) Referral ID Status Reason Start Date Expiration Date Visits Requested Visits Authorized [id number] Authorized Perform Procedure 3 03/14/2024 1 1 Care Teams (unrecognized sec tion and content) FOR RECORDS PERTAINING TO PATIENTS WHO ARE OR HAVE BEEN ENROLLED IN A CHEMICAL DEPENDENCY/SUBSTANCEABUSE PROGRAM, SOME INFORMATION MAY BE OMITTED. This clinical summary was aggregated from multiple sources. Caution should be exercised in using it in the provision of clinical care. This summary normalizes information from multiple sources, and as a consequence, information in this document may materially change the coding, format and clinical context of patient data. In addition, data may be omitted in some cases. CLINICAL DECISIONS SHOULD BE BASED ON THE PRIMARY CLINICAL RECORDS. [facility] [employer] [facility]. provides no warranty or guarantee of the accuracy or completeness of information in this document.
[2023-06-02 15:36] LABS: Absolute Lymphocyte Count 0.86 X10^3/uL (0.83-4.51); Absolute Neutrophil Count 3.1 X10^3/uL (2.0-7.7); Basophil# 0.03 X10^3/uL; Basophil% 0.7 % (0-1); Eosinophil# 0.21 X10^3/uL; Eosinophils% 4.7 % (0-5); Hematocrit 39.1 % (37-47); Hemoglobin 12.2 g/dL (12.0-15.0); Lymphocyte # 0.86 X10^3/ul (0.83-4.51); Lymphocyte % 19.1 % (19-41); Mean Corp Hgb Conc 31.2 g/dL (32-36); Mean Corpuscular Hgb 27.2 pg (27.0-32.0); Mean Corpuscular Volume 87.3 fL (81-99); Mean Platelet Vol. 9.6 fl (6.2-12.0); Monocyte# 0.34 X10^3/uL; Monocyte% 7.6 % (0-10); NRBC Flagged by Analyzer 0 % (0-5); Neutrophil # 3.05 X10^3/uL (2.7-7.7); Neutrophil % 67.7 % (47-70); Platelet Count 222 K/mm3 (150-450); RBC Distribution Width CV 14.2 % (11.6-14.6); RBC Distribution Width SD 45.8 fl (35.1-43.9); Red Blood Count 4.48 M/mm3 (4.2-5.4); White Blood Count 4.5 K/mm3 (4.4-11.0)
[2023-06-02 16:14] LABS: Anion Gap 5 (5-15); BUN 12 mg/dL (7-18); BUN/Creat Ratio 8.6 RATIO (10-20); Calcium,Total 9.7 mg/dL (8.5-10.1); Chloride 109 mmol/L (98-107); Creatinine, Serum 1.39 mg/dL (0.55-1.02); EST Glomerular Filtration Rate 41 mL/min (>60); Est Glom Filt Rate - Afr Amer 49 mL/min (>60); Glucose 98 mg/dL (74-106); Potassium 4.3 mmol/L (3.5-5.1); Sodium Level 141 mmol/L (136-145); Thyroid Stim Hormone (TSH) 0.81 uIU/mL (0.358-3.74)
[2023-06-02 17:02] LABS: Vitamin B12 183 pg/mL (211-911); Vitamin D,25 Hydroxy 88.4 ng/mL
== END | disposition home or self-care (01) ==
PROVIDERS: PCP Internal Medicine; Referring Provider Internal Medicine; Visit Provider Internal Medicine
DX: I12.9 Hypertensive chronic kidney disease with stage 1 through stage 4 chronic kidney disease, or unspecified chronic kidney disease (principal); N18.30 Chronic kidney disease, stage 3 unspecified; F41.9 Anxiety disorder, unspecified; F32.9 Major depressive disorder, single episode, unspecified
CPT/HCPCS: 36415; 80048; 82306; 82607; 84443; 85025

== ENCOUNTER → 2023-09-01 | Outpatient (CLI) | payer MEDICARE, MEDICAID, SELFPAY ==
[2023-09-01 15:41] LABS: Absolute Lymphocyte Count 0.89 X10^3/uL (0.83-4.51); Absolute Neutrophil Count 3.6 X10^3/uL (2.0-7.7); Basophil# 0.03 X10^3/uL; Basophil% 0.6 % (0-1); Eosinophils% 3.9 % (0-5); Hematocrit 37.5 % (37-47); Hemoglobin 12.1 g/dL (12.0-15.0); Lymphocyte # 0.89 X10^3/ul (0.83-4.51); Lymphocyte % 17.2 % (19-41); Mean Corp Hgb Conc 32.3 g/dL (32-36); Mean Corpuscular Hgb 28.3 pg (27.0-32.0); Mean Corpuscular Volume 87.8 fL (81-99); Mean Platelet Vol. 9.7 fl (6.2-12.0); Monocyte# 0.44 X10^3/uL; Monocyte% 8.5 % (0-10); NRBC Flagged by Analyzer 0 % (0-5); Neutrophil # 3.59 X10^3/uL (2.7-7.7); Neutrophil % 69.4 % (47-70); Platelet Count 230 K/mm3 (150-450); RBC Distribution Width SD 48.3 fl (35.1-43.9); Red Blood Count 4.27 M/mm3 (4.2-5.4); White Blood Count 5.2 K/mm3 (4.4-11.0)
[2023-09-01 16:17] LABS: ALB/GLOB Ratio 1.4 RATIO (0.9-2.4); AST(SGOT) 23 U/L (15-37); Alanine Aminotransfer ALT/SGPT 23 U/L (13-56); Albumin, Serum 4.2 g/dL (3.2-5.0); Alkaline Phosphatase 128 U/L (45-117); Anion Gap 3 (5-15); BUN 20 mg/dL (7-18); BUN/Creat Ratio 11.6 RATIO (10-20); CRP < 2.90 mg/L (0.0-3.0); Calcium,Total 9.6 mg/dL (8.5-10.1); Chloride 108 mmol/L (98-107); Creatinine, Serum 1.72 mg/dL (0.55-1.02); EST Glomerular Filtration Rate 32 mL/min (>60); Est Glom Filt Rate - Afr Amer 38 mL/min (>60); Globulin 2.9 g/dL (2.2-4.2); Glucose 102 mg/dL (74-106); Potassium 4.2 mmol/L (3.5-5.1); Protein, Total 7.1 g/dL (6.4-8.2); Sodium Level 139 mmol/L (136-145); Vitamin B12 > 2000 pg/mL (211-911)
[2023-09-04 17:07] LABS: ANTINUCLEAR ANTIBODIES DIRECT Positive (Negative); Anti-Centromere B Ab <0.2 AI (0.0-0.9); Anti-Chromatin <0.2 AI (0.0-0.9); Anti-Jo <0.2 AI (0.0-0.9); Anti-Scleroderma-70 AB <0.2 AI (0.0-0.9); Anti-dsDNA Ab <1 IU/mL (0-9); RNP Ab <0.2 AI (0.0-0.9); SJOGREN'S Anti-SS-A test 0.2 AI (0.0-0.9); SJOGREN'S Anti-SS-B test 1.3 AI (0.0-0.9); Smith Ab <0.2 AI (0.0-0.9)
== END | disposition home or self-care (01) ==
PROVIDERS: Internal Medicine; PCP Internal Medicine; Referring Provider Internal Medicine; Visit Provider Internal Medicine
DX: N18.32 Chronic kidney disease, stage 3b (principal)
CPT/HCPCS: 36415; 80053; 82607; 85025; 86038; 86140; 86225; 86235

== ENCOUNTER → 2023-09-18 | Outpatient (CLI) | payer MEDICARE, MEDICAID, SELFPAY ==
--- NOTE | 2023-09-18 11:02 | MRI_ITS ---
MR Abdomen WO/W Contrast 09/18/2023 12:02 PM COMPARISON: None CLINICAL HISTORY: Echogenic nodule in the liver possible hemangioma. -- 1 x 1.1 x 1 cm nodule. Triple phase MRI. r/o HCC -- 1 cm hemangiomOn liver US. Rule out HCC better characterization. TECHNIQUE: Multiplanar T1 and T2 weighted, diffusion and dynamic post-gadolinium images were obtained through the abdomen with and without 20 cc of IV Clariscan. FINDINGS: Liver: 1.1 cm mildly T2 hyperintense/T1 hypointense lesion in segment 5 of the liver with progressive discontinuous centripetal enhancement consistent with hemangioma. Marked heterogeneity in segments 1 and 2 of the liver. No suspicious arterially hyperenhancing or delayed washout lesions to suggest HCC. The liver is mildly cirrhotic. Gallbladder: Unremarkable Spleen: Mildly enlarged. Pancreas: Unremarkable Adrenal Glands: Unremarkable Kidneys: Nonenhancing renal cysts. GI Tract: Unremarkable Lymphadenopathy: Absent Ascites: Absent Bones: Postsurgical changes of the lower lumbar spine. MRI/MRI Abd WITH and W/O Contrast IMPRESSION: Marked heterogeneity in segments 1 and 2 of the liver with no discrete arterially hyperenhancing or delayed washout lesions to suggest HCC. Recommend close attention on follow-up MRI which is recommended in 3-4 months. 1.1 cm hemangioma in segment 5 of the liver. Cirrhotic liver with evidence of portal hypertension including mild splenomegaly. Electronically Signed: Mayur Morales MD at 16:42 EDT ,
== END | disposition home or self-care (01) ==
LOC: MRI 10:59
PROVIDERS: PCP Internal Medicine; Referring Provider Internal Medicine; Visit Provider Internal Medicine
DX: K76.0 Fatty (change of) liver, not elsewhere classified (principal); K21.9 Gastro-esophageal reflux disease without esophagitis
CPT/HCPCS: 74183; A9575; A4216

== ENCOUNTER → 2023-10-04 | Outpatient (CLI) | payer MEDICARE, MEDICAID, SELFPAY ==
[2023-10-04 14:00] LABS: Anion Gap 7 (5-15); BUN 24 mg/dL (7-18); BUN/Creat Ratio 14.8 RATIO (10-20); Chloride 107 mmol/L (98-107); Creatinine, Serum 1.62 mg/dL (0.55-1.02); EST Glomerular Filtration Rate 34 mL/min (>60); Est Glom Filt Rate - Afr Amer 41 mL/min (>60); Glucose 104 mg/dL (74-106); Potassium 4.3 mmol/L (3.5-5.1); Sodium Level 138 mmol/L (136-145)
== END | disposition home or self-care (01) ==
LOC: BIMLAB 10:13
PROVIDERS: PCP Internal Medicine; Visit Provider Internal Medicine
DX: K74.60 Unspecified cirrhosis of liver (principal); N17.9 Acute kidney failure, unspecified
CPT/HCPCS: 36415; 80048

== ENCOUNTER → 2023-12-01 | Outpatient (CLI) | payer MEDICARE, MEDICAID, SELFPAY ==
[2023-12-01 13:40] LABS: ALB/GLOB Ratio 1.3 RATIO (0.9-2.4); AST(SGOT) 21 U/L (15-37); Alanine Aminotransfer ALT/SGPT 19 U/L (13-56); Albumin, Serum 3.8 g/dL (3.2-5.0); Alkaline Phosphatase 128 U/L (45-117); Anion Gap 8 (5-15); BUN 17 mg/dL (7-18); BUN/Creat Ratio 12.8 RATIO (10-20); Calcium,Total 9.6 mg/dL (8.5-10.1); Chloride 110 mmol/L (98-107); Cholesterol 184 mg/dL (200); Creatinine, Serum 1.33 mg/dL (0.55-1.02); EST Glomerular Filtration Rate 43 mL/min (>60); Est Glom Filt Rate - Afr Amer 52 mL/min (>60); Globulin 2.9 g/dL (2.2-4.2); Glucose 104 mg/dL (74-106); High Density Lipoprotein 60 mg/dL; Potassium 4.4 mmol/L (3.5-5.1); Protein, Total 6.7 g/dL (6.4-8.2); Sodium Level 140 mmol/L (136-145); Thyroid Stim Hormone (TSH) 5.33 uIU/mL (0.358-3.74); Triglycerides 122 mg/dL; Very Low Density Lipoprotein 24 mg/dL (5-40)
== END | disposition home or self-care (01) ==
LOC: BIMLAB 11:03
PROVIDERS: PCP Internal Medicine; Referring Provider Internal Medicine; Visit Provider Internal Medicine
DX: E03.9 Hypothyroidism, unspecified (principal); E78.5 Hyperlipidemia, unspecified
CPT/HCPCS: 36415; 80053; 80061; 84443

== ENCOUNTER → 2024-02-14 | Outpatient (CLI) | payer MEDICARE, MEDICAID, SELFPAY ==
[2024-02-14 11:04] LABS: BUN 15 mg/dL (7-18); BUN/Creat Ratio 11.5 RATIO (10-20); Calcium,Total 9.7 mg/dL (8.5-10.1); Chloride 112 mmol/L (98-107); Creatinine, Serum 1.31 mg/dL (0.55-1.02); EST Glomerular Filtration Rate 43 mL/min (>60); Est Glom Filt Rate - Afr Amer 53 mL/min (>60); Glucose 108 mg/dL (74-106); Phosphorus 2.7 mg/dL (2.5-4.9); Potassium 4.4 mmol/L (3.5-5.1); Sodium Level 142 mmol/L (136-145)
== END | disposition home or self-care (01) ==
LOC: POLAB3 09:48
PROVIDERS: PCP Internal Medicine; Visit Provider Internal Medicine Nephrology
DX: N17.9 Acute kidney failure, unspecified (principal)
CPT/HCPCS: 36415; 80069

== ENCOUNTER → 2024-03-04 | Outpatient (CLI) | payer MEDICARE, MEDICAID, SELFPAY ==
[2024-03-04 12:28] LABS: Prothrombin Time (Protime)PT. 13.3 SECONDS (11.7-14.9)
[2024-03-04 12:29] LABS: Absolute Lymphocyte Count 1.02 X10^3/uL (0.83-4.51); Absolute Neutrophil Count 3.1 X10^3/uL (2.0-7.7); Basophil# 0.03 X10^3/uL; Basophil% 0.6 % (0-1); Eosinophil# 0.21 X10^3/uL; Eosinophils% 4.4 % (0-5); Hematocrit 38.4 % (37-47); Hemoglobin 12.1 g/dL (12.0-15.0); Lymphocyte # 1.02 X10^3/ul (0.83-4.51); Lymphocyte % 21.3 % (19-41); Mean Corp Hgb Conc 31.5 g/dL (32-36); Mean Corpuscular Hgb 26.7 pg (27.0-32.0); Mean Corpuscular Volume 84.8 fL (81-99); Mean Platelet Vol. 9.9 fl (6.2-12.0); Monocyte# 0.41 X10^3/uL; Monocyte% 8.6 % (0-10); NRBC Flagged by Analyzer 0 % (0-5); Neutrophil % 64.9 % (47-70); Platelet Count 238 K/mm3 (150-450); RBC Distribution Width CV 13.7 % (11.6-14.6); RBC Distribution Width SD 42.5 fl (35.1-43.9); Red Blood Count 4.53 M/mm3 (4.2-5.4); White Blood Count 4.8 K/mm3 (4.4-11.0)
[2024-03-04 13:13] LABS: Hemoglobin A1c 5.8 % (3.8-5.6)
[2024-03-04 13:14] LABS: CRP < 2.90 mg/L (0.0-3.0); Thyroid Stim Hormone (TSH) 0.094 uIU/mL (0.358-3.740)
[2024-03-05 12:09] LABS: AFP, Tumor Marker 2.2 ng/mL (0.0-9.2)
== END | disposition home or self-care (01) ==
LOC: BIMLAB 11:00
PROVIDERS: Internal Medicine; PCP Internal Medicine; Referring Provider Internal Medicine; Visit Provider Internal Medicine
DX: E89.0 Postprocedural hypothyroidism (principal); E66.01 Morbid (severe) obesity due to excess calories; K76.0 Fatty (change of) liver, not elsewhere classified; K21.9 Gastro-esophageal reflux disease without esophagitis; E53.8 Deficiency of other specified B group vitamins; I87.2 Venous insufficiency (chronic) (peripheral)
CPT/HCPCS: 36415; 82105; 82607; 83036; 84443; 85025; 85610; 86140

== ENCOUNTER → 2024-03-08 | Outpatient (CLI) | payer MEDICARE, MEDICAID, SELFPAY ==
--- NOTE | 2024-03-08 12:30 | US_ITS ---
STUDY: RENAL ULTRASOUND - COMPLETE REASON FOR EXAM: Female, 64 years old. CYST OF KIDNEY TECHNIQUE: Ultrasound evaluation of the kidneys was performed with real-time and static jackson-scale imaging. COMPARISON: Ultrasound of the abdomen 02/13/2023. MR abdomen with and without contrast 09/18/2023. Ultrasound of the kidneys and bladder 03/16/2021. FINDINGS: RIGHT KIDNEY: Normal location of the right kidney, which is normal in size. The right kidney measures 9.1 x 5.3 x 3.9 cm. There is a normal cortex of the right kidney. The renal cortex measures 1.0 cm. There is no right renal mass or cyst. There are no right renal calculi. There is no right hydronephrosis. DISTAL RIGHT URETER: There is non-visualization of the distal right ureter. There is no demonstrated right ureterovesical junction calculus. There is a visualized right ureteral jet. LEFT KIDNEY: Normal location of the left kidney, which is normal in size. The left kidney measures 9.8 x 4.8 x 4.4 cm. There is a normal cortex of the left kidney. The renal cortex measures 1.3 cm. There is a 2.4 x 2.3 x 2.2 cm anechoic cyst in the medial aspect of the left kidney. There are no left renal calculi. There is no left hydronephrosis. DISTAL LEFT URETER: There is non-visualization of the distal left ureter. There is no demonstrated left ureterovesical junction calculus. There is a visualized left ureteral jet. BLADDER: The distended urinary bladder has a volume of 72 ml. No post void urinary bladder. There is a normal 4 mm wall thickness of the distended urinary bladder. There is no demonstrated mass within the urinary bladder. There are no demonstrated bladder calculi. US/Kidney and Bladder IMPRESSION: 1. 2.4 x 2.3 x 2.2 cm left intrasinus renal cyst, previously 2 x 2.3 x 1.9 cm. Otherwise negative ultrasound of both kidneys and urinary bladder. 2. No significant interval change. Electronically Signed: Eric Nieves MD at 16:19 EDT ,
== END | disposition home or self-care (01) ==
PROVIDERS: PCP Internal Medicine; Referring Provider Internal Medicine Nephrology; Visit Provider Internal Medicine Nephrology
DX: N28.1 Cyst of kidney, acquired (principal)
CPT/HCPCS: 76770

== ENCOUNTER → 2024-03-28 | Outpatient (CLI) | payer MEDICARE, MEDICAID, SELFPAY | END | disposition home or self-care (01) | LOC: OPBD 12:27 | PROVIDERS: PCP Internal Medicine; Referring Provider Internal Medicine; Visit Provider Internal Medicine | DX: Z12.31 Encounter for screening mammogram for malignant neoplasm of breast (principal); Z78.0 Asymptomatic menopausal state; Z80.3 Family history of malignant neoplasm of breast | CPT/HCPCS: 77063; 77067; 77081 ==

== ENCOUNTER → 2024-05-02 | Outpatient (CLI) | payer MEDICARE, MEDICAID, SELFPAY ==
--- NOTE | 2024-05-02 08:43 | US_ITS ---
STUDY: ABDOMINAL ULTRASOUND - RIGHT UPPER QUADRANT; ELASTOGRAPHY REASON FOR VISIT: Female, 64 years old. Cirrhosis . NAFL D TECHNIQUE: Ultrasound evaluation of the right upper quadrant was performed with real-time and static arellano-scale imaging. Point quantification shear wave elastography was performed ([employer]). TECHNICAL QUALITY: Adequate. COMPARISON: Comparison is made with prior study dated February 13, 2023. FINDINGS: Liver: The liver measures 16.8 cm. There is increased echogenicity consistent with fatty infiltration. The bile ducts are within normal limits. There is hepatic color flow. The direction of portal flow is hepatopetal. There is no demonstrated mass lesion. Median liver stiffness measured 13.3 kPa. Gallbladder: Normal distended gallbladder. The gallbladder wall measures 2.6 mm. There is a negative sonographic Cuenca''s sign. There is no pericholecystic fluid. There are no gallstones. Common Bile Duct (C.B.D.): The common bile duct measures 3.3 mm. Pancreas: There is normal echogenicity of the visualized pancreas. There is no demonstrated pancreatic mass or cyst. Right Kidney: Normal size of the right kidney. The right kidney measures 8.7 cm x 4.6 x 4.4 cm. Normal renal cortex. The right cortex measures 1.1 cm. There is no demonstrated renal mass or cyst. There is no right hydronephrosis. IMPRESSION: 1. Liver stiffness measures 13.3 kPa compatible with F3-F4 (Moderate to severe liver fibrosis) Metavir score. 2. Fatty infiltration of the liver. Electronically Signed: Zeeshan Boyer MD at 14:10 EST , STUDY: ABDOMINAL ULTRASOUND - LEFT UPPER QUADRANT REASON FOR EXAM: Female, 64 years old. Cirrhosis, NAFLD, Including spleen. TECHNIQUE: Transabdominal ultrasound was performed with real-time and static arellano scale imaging. TECHNICAL QUALITY: Adequate. COMPARISON: None. FINDINGS: Spleen: Normal size of the spleen. The spleen measures 12.7 cm x 6.3 cm x 4.7 cm. US/ABD Limited w/ Elastography IMPRESSION: Normal splenic size. Electronically Signed: Zeeshan Boyer MD at 14:10 EST ,
== END | disposition home or self-care (01) ==
LOC: US 08:42
PROVIDERS: PCP Internal Medicine; Referring Provider Internal Medicine; Visit Provider Internal Medicine
DX: K74.60 Unspecified cirrhosis of liver (principal); E66.01 Morbid (severe) obesity due to excess calories; N18.30 Chronic kidney disease, stage 3 unspecified; K76.0 Fatty (change of) liver, not elsewhere classified; R94.5 Abnormal results of liver function studies; N17.9 Acute kidney failure, unspecified; E89.0 Postprocedural hypothyroidism
CPT/HCPCS: 76705; 76981

== ENCOUNTER → 2024-06-03 | Outpatient (CLI) | payer MEDICARE, MEDICAID, SELFPAY ==
[2024-06-03 17:52] LABS: Thyroid Stim Hormone (TSH) 0.191 uIU/mL (0.358-3.740)
== END | disposition home or self-care (01) ==
LOC: BIMLAB 13:53
PROVIDERS: PCP Internal Medicine; Referring Provider Internal Medicine; Visit Provider Internal Medicine
DX: E03.9 Hypothyroidism, unspecified (principal)

== ENCOUNTER → 2024-06-26 | Outpatient (CLI) | payer MEDICARE, MEDICAID, SELFPAY ==
[2024-06-26 16:00] LABS: Absolute Lymphocyte Count 1.27 X10^3/uL (0.83-4.51); Absolute Neutrophil Count 3.2 X10^3/uL (2.0-7.7); Basophil# 0.05 X10^3/uL; Eosinophil# 0.19 X10^3/uL; Eosinophils% 3.7 % (0-5); Hematocrit 41.6 % (37-47); Hemoglobin 13.2 g/dL (12.0-15.0); Lymphocyte # 1.27 X10^3/ul (0.83-4.51); Lymphocyte % 24.9 % (19-41); Mean Corp Hgb Conc 31.7 g/dL (32-36); Mean Corpuscular Hgb 26.9 pg (27.0-32.0); Mean Corpuscular Volume 84.9 fL (81-99); Mean Platelet Vol. 9.9 fl (6.2-12.0); Monocyte% 7.8 % (0-10); NRBC Flagged by Analyzer 0 % (0-5); Neutrophil # 3.17 X10^3/uL (2.7-7.7); Platelet Count 282 K/mm3 (150-450); RBC Distribution Width CV 13.9 % (11.6-14.6); RBC Distribution Width SD 42.9 fl (35.1-43.9); White Blood Count 5.1 K/mm3 (4.4-11.0)
[2024-06-26 16:21] LABS: Prothrombin Time (Protime)PT. 13.7 SECONDS (11.7-14.9)
[2024-06-26 17:12] LABS: ALB/GLOB Ratio 1.4 RATIO (0.9-2.4); AST(SGOT) 13 U/L (15-37); Alanine Aminotransfer ALT/SGPT 18 U/L (13-56); Albumin, Serum 4.2 g/dL (3.2-5.0); Alkaline Phosphatase 163 U/L (45-117); Anion Gap 7 (5-15); BUN 16 mg/dL (7-18); BUN/Creat Ratio 11.4 RATIO (10-20); CRP < 2.90 mg/L (0.0-3.0); Calcium,Total 9.9 mg/dL (8.5-10.1); Chloride 108 mmol/L (98-107); Cholesterol 182 mg/dL (200); EST Glomerular Filtration Rate 40 mL/min (>60); Est Glom Filt Rate - Afr Amer 49 mL/min (>60); Ferritin 17 ng/mL (8-252); Globulin 3.1 g/dL (2.2-4.2); Glucose 121 mg/dL (74-106); High Density Lipoprotein 58 mg/dL; Iron 76 ug/dL (50-170); Iron Binding Capacity,Total 427 ug/dL (250-450); LDH 217 U/L (84-246); PERCENT IRON SATURATION 17.8 % (15.0-55.0); Potassium 4.5 mmol/L (3.5-5.1); Protein, Total 7.3 g/dL (6.4-8.2); Sodium Level 140 mmol/L (136-145); T4 Free Direct 1.37 ng/dL (0.76-1.46); Triglycerides 138 mg/dL; Very Low Density Lipoprotein 28 mg/dL (5-40)
[2024-06-26 17:49] LABS: Vitamin D,25 Hydroxy 92.7 ng/mL
[2024-06-26 19:34] LABS: Hemoglobin A1c 5.3 % (3.8-5.6)
[2024-06-28 15:07] LABS: ANTINUCLEAR ANTIBODIES DIRECT Negative (Negative); Anti-Mitochondrial AB <20.0 Units (0.0-20.0)
[2024-07-01 15:07] LABS: Alkaline Phosphatase, Serum 166 IU/L (44-121); Anti-Smooth Muscle ABS 6 Units (0-19); Bone Fraction 40 % (14-68); Haptoglobin 103 mg/dL (37-355); Intestinal Fraction 3 % (0-18); Liver Fraction 56 % (18-85)
== END | disposition home or self-care (01) ==
PROVIDERS: PCP Internal Medicine; Referring Provider Internal Medicine; Visit Provider Internal Medicine
DX: K74.60 Unspecified cirrhosis of liver (principal); E66.01 Morbid (severe) obesity due to excess calories; E11.22 Type 2 diabetes mellitus with diabetic chronic kidney disease; N18.30 Chronic kidney disease, stage 3 unspecified; K76.0 Fatty (change of) liver, not elsewhere classified; R94.5 Abnormal results of liver function studies; N17.9 Acute kidney failure, unspecified; E89.0 Postprocedural hypothyroidism; M81.0 Age-related osteoporosis without current pathological fracture; E78.5 Hyperlipidemia, unspecified
CPT/HCPCS: 36415; 80053; 80061; 82140; 82306; 82728; 83010; 83036; 83516; 83540; 83550; 83615; 84075; 84080; 84439; 84443; 85025; 85610; 86038; 86140

== ENCOUNTER → 2024-07-18 | Outpatient (CLI) | payer MEDICARE, MEDICAID, SELFPAY ==
[2024-07-18 15:50] LABS: Albumin, Serum 4.4 g/dL (3.4-4.8); BUN 11 mg/dL (4-19); BUN/Creat Ratio 8.3 RATIO (10-20); Calcium 9.8 mg/dL (7.6-11.0); Carbon Dioxide 22.2 mmol/L (22.0-29.0); Chloride 106 mmol/L (96-108); Creatinine, Serum 1.4 mg/dL (0.6-1.0); EST Glomerular Filtration Rate 44 (>60); Glucose 103 mg/dL (70-99); Potassium 3.9 mmol/L (3.3-5.1); Sodium Level 139 mmol/L (133-145)
[2024-07-18 20:09] LABS: PTHIN 51 pg/mL (11-61)
[2024-07-19 14:08] LABS: Thyroid Stim Hormone (TSH) 0.739 uIU/mL (0.300-4.200)
== END | disposition home or self-care (01) ==
LOC: BIMLAB 13:03
PROVIDERS: PCP Internal Medicine; Visit Provider Internal Medicine Nephrology
DX: N18.32 Chronic kidney disease, stage 3b (principal); E03.9 Hypothyroidism, unspecified
CPT/HCPCS: 36415; 80069; 83970; 84439; 84443

== ENCOUNTER → 2024-07-19 | Outpatient (CLI) | payer MEDICARE, SELFPAY ==
--- NOTE | 2024-07-20 11:13 | STRESSREP ---
Stress Test Report Date: 07/19/2024 Procedure: Pharmacologic stress nuclear imaging study Indications: Elevated troponin Consent: Per the patient Procedure: The patient underwent pharmacologic (Regadenoson) evaluation with a peak heart rate of 102 beats per minute (65%predicted maximal heart rate) and a peak blood pressure of 122/88 mmHg. The baseline ECG demonstrated normal sinus rhythm. EKG during lexiscan infusion revealed no significant ischemic changes. EKG post infusion revealed no significant ischemic changes [There were no cardiac dysrhythmias pretest, during pharmacologic infusion, or recovery]. [There was no complaint of chest discomfort during pharmacologic infusion or recovery]. The examination was discontinued secondary to completion of protocol. Impression: 1. Lexiscan stress test test is negative for Lexiscan infusion induced EKG changes of ischemia. 2. Lexiscan stress test test is negative for Lexiscan infusion induced chest pain. 3. Results of the nuclear portion of the test is as below Myocardial perfusion imaging study: Technique: The patient was injected with 15 millicuries of technetium 99m Cardiolite and subsequently rest SPECT Cardiolite nuclear imaging was obtained in the horizontal long, vertical long, and short axis views. The patient underwent pharmacologic [Regadenoson 0.4mg] evaluation. Please see above for details. The patient was injected with 45 millicuries of technetium 99m Cardiolite and subsequently stress SPECT Cardiolite nuclear imaging was obtained in the horizontal long, vertical long, and short axis views. A gated Cardiolite study at peak stress was obtained. Interpretation: Rest and stress SPECT Cardiolite nuclear imaging status post realignment, normalization, and attenuation correction demonstrate no evidence of significant ischemia or infarction. Gated images reveal no significant regional wall motion abnormalities. The reported LVEF is greater than 70%. Impression: 1. There is no evidence of significant ischemia or infarction. 2. Estimated ejection fraction is greater than 70%. This note was generated with [employer] software. It may contain incorrect words, spelling, and punctuation that were not noted in checking the note before signing.
== END | disposition home or self-care (01) ==
LOC: CVS 06:53
PROVIDERS: PCP Internal Medicine; Referring Provider Internal Medicine; Visit Provider Internal Medicine
DX: R79.89 Other specified abnormal findings of blood chemistry (principal); I10 Essential (primary) hypertension; R06.09 Other forms of dyspnea
CPT/HCPCS: 78452; 93017; A9500; A4216; J2785

== ENCOUNTER → 2024-12-09 | Outpatient (CLI) | payer MEDICARE, MEDICAID, SELFPAY ==
[2024-12-09 15:35] LABS: Hematocrit 37.4 % (37-47); Hemoglobin 12.0 g/dL (12.0-15.0); Immature Granulocytes Count 0.020 X10^3/uL (0.0-0.0); Mean Corp Hgb Conc 32.1 g/dL (32-36); Mean Corpuscular Volume 86.4 fL (81-99); Mean Platelet Vol. 10.0 fl (6.2-12.0); NRBC Flagged by Analyzer 0 % (0-5); Platelet Count 216 K/mm3 (150-450); RBC Distribution Width CV 14.3 % (11.6-14.6); RBC Distribution Width SD 45.1 fl (35.1-43.9); Red Blood Count 4.33 M/mm3 (4.2-5.4); White Blood Count 4.1 K/mm3 (4.4-11.0)
[2024-12-09 16:13] LABS: AST(SGOT) 24 U/L (<=31); Alanine Aminotransfer ALT/SGPT 16 U/L (<=34); Albumin, Serum 4.5 g/dL (3.4-4.8); Alkaline Phosphatase 122 U/L (35-104); Anion Gap 11 (5-15); BUN 14 mg/dL (4-19); BUN/Creat Ratio 9.2 RATIO (10-20); Calcium,Total 10.3 mg/dL (7.6-11.0); Carbon Dioxide 24.2 mmol/L (21.0-32.0); Chloride 105 mmol/L (98-108); Globulin 2.1 g/dL (2.2-4.2); Glucose 106 mg/dL (70-99); Potassium 4.3 mmol/L (3.3-5.1)
[2024-12-09 17:29] LABS: Prothrombin Time (Protime)PT. 13.1 SECONDS (11.7-14.9)
== END | disposition home or self-care (01) ==
LOC: BIMLAB 11:36
PROVIDERS: Internal Medicine; PCP Internal Medicine; Referring Provider Internal Medicine; Visit Provider Internal Medicine
DX: R73.03 Prediabetes (principal); K74.60 Unspecified cirrhosis of liver; E03.9 Hypothyroidism, unspecified; E78.5 Hyperlipidemia, unspecified; K76.0 Fatty (change of) liver, not elsewhere classified
CPT/HCPCS: 36415; 80053; 83036; 84443; 85025; 85610

== ENCOUNTER → 2025-03-12 | Outpatient (CLI) | payer MEDICARE, MEDICAID, SELFPAY ==
[2025-03-12 13:39] LABS: Hematocrit 38.0 % (37-47); Hemoglobin 12.3 g/dL (12.0-15.0); Immature Granulocytes Count 0.010 X10^3/uL (0.0-0.0); Mean Corp Hgb Conc 32.4 g/dL (32-36); Mean Corpuscular Volume 85.2 fL (81-99); Mean Platelet Vol. 9.9 fl (6.2-12.0); NRBC Flagged by Analyzer 0 % (0-5); Platelet Count 203 K/mm3 (150-450); RBC Distribution Width CV 13.4 % (11.6-14.6); RBC Distribution Width SD 42.3 fl (35.1-43.9); Red Blood Count 4.46 M/mm3 (4.2-5.4); White Blood Count 5.0 K/mm3 (4.4-11.0)
[2025-03-12 14:52] LABS: AST(SGOT) 22 U/L (<=31); Alanine Aminotransfer ALT/SGPT 13 U/L (<=34); Albumin, Serum 4.3 g/dL (3.4-4.8); Alkaline Phosphatase 121 U/L (35-104); Anion Gap 11 (5-15); BUN 15 mg/dL (4-19); BUN/Creat Ratio 12.1 RATIO (10-20); Calcium,Total 10.0 mg/dL (7.6-11.0); Carbon Dioxide 22.3 mmol/L (21.0-32.0); Chloride 107 mmol/L (98-108); Globulin 2.4 g/dL (2.2-4.2); Glucose 104 mg/dL (70-99); Potassium 4.6 mmol/L (3.3-5.1)
== END | disposition home or self-care (01) ==
LOC: LAB 12:58
PROVIDERS: PCP Internal Medicine; Referring Provider Internal Medicine; Visit Provider Internal Medicine
DX: I10 Essential (primary) hypertension (principal)
CPT/HCPCS: 36415; 80053; 84443; 85025

== ENCOUNTER → 2025-04-25 | Outpatient (CLI) | payer MEDICARE, MEDICAID, SELFPAY ==
--- NOTE | 2025-04-25 08:15 | BI_ITS ---
EXAM: SCRN MAMM (CAD)W/CHAPIN BILAT DATE: 04/25/2025 CLINICAL HISTORY: F, Age 65 y/o , BREAST CANCER SCREENING TECHNIQUE: Procedure Code: [id number] Modality: MG Procedure: SCRN MAMM (CAD)W/CHAPIN BILAT COMPARISON: Prior exam(s) dated 03/28/2024.. FINDINGS: TISSUE DENSITY: The breasts are heterogeneously dense, which may obscure small masses. Bilateral Breast Mammographic Findings: No significant masses, calcifications or other abnormalities are identified. A surgical clip is noted in the right breast BI/SCRN MAMM (CAD)W/CHAPIN BILAT IMPRESSION: OVERALL FINAL ASSESSMENT BI-RADS 2: BENIGN RECOMMENDATION: Routine annual follow-up in 1 Year Additional Recommendation none A letter with findings and recommendations will be mailed to the patient. Reading Location: [id number]
== END | disposition home or self-care (01) ==
LOC: OPBI 08:12
PROVIDERS: PCP Internal Medicine; Referring Provider Internal Medicine; Visit Provider Internal Medicine
DX: Z12.31 Encounter for screening mammogram for malignant neoplasm of breast (principal)
CPT/HCPCS: 77063; 77067